=== PATIENT | female | born 1955 | race Caucasian/White ===

== ENCOUNTER 2016-08-20 18:21 | Emergency (ER) | payer MEDICARE, MEDICAID ==
[2016-08-20 18:29] VITALS: BP 149/92
== END 2016-08-20 20:10 | disposition left against medical advice (07) ==
LOC: ED 18:21
DX: M25.551 Pain in right hip (principal); Z53.21 Procedure and treatment not carried out due to patient leaving prior to being seen by health care provider

== ENCOUNTER 2017-09-21 11:08 | Emergency (ER) | payer MEDICARE, MEDICAID ==
[2017-09-21 11:56] VITALS: BP 136/63
--- NOTE | 2017-09-21 12:01 | UC ---
Dental HPI - HPI Summary HPI Summary: Pt presents with front upper tooth fracture sustained last night while eating. This has been rubbing against her tongue and causing her pain. She could not get in to see her dentist until next week. - History of Current Complaint Chief Complaint: UCDentalProblem Stated Complaint: DENTAL COMPLAINT Time Seen by Provider: 09/21/17 11:56 Hx Obtained From: Patient, Family/Soa Engineer Onset/Duration: Sudden Onset Severity: Mild Pain Intensity: 3 Pain Scale Used: 0-10 Numeric - Allergies/Home Medications Allergies/Adverse Reactions: Allergies Allergy/AdvReac Type Severity Reaction Status Date / Time No Known Allergies Allergy Verified 09/21/17 11:44 PMH/Surg Hx/FS Hx/Imm Hx Previously Healthy: Yes Endocrine History: Dyslipidemia Respiratory History: COPD, Asthma Psychological History: Anxiety, Depression, Bipolar Disorder - Surgical History Surgical History: None - Family History Known Family History: Positive: Unknown - Social History Occupation: Disabled Lives: With Family Alcohol Use: None Substance Use Type: None Substance Use Comment - Amount & Last Used: PAIN MEDICATION Smoking Status (MU): Never Smoked Tobacco Household Exposure Type: Cigarettes Review of Systems Constitutional: Negative Skin: Negative ENT: Dental Pain Respiratory: Negative Cardiovascular: Negative Neurological: Negative Psychological: Negative All Other Systems Reviewed And Are Negative: Yes Physical Exam Triage Information Reviewed: Yes Appearance: Well-Appearing, No Pain Distress, Well-Nourished Vital Signs: Initial Vital Signs Temp 97.4 F 09/21/17 11:48 Pulse 87 09/21/17 11:48 Resp 16 09/21/17 11:48 BP 136/63 09/21/17 11:48 Pulse Ox 96 09/21/17 11:48 Vital Signs Reviewed: Yes ENT: Positive: Hearing grossly normal, Pharynx normal, Dental tenderness, Uvula midline. Negative: Pharyngeal erythema Dental: Positive: Percussion Tenderness @ - Tooth 9, Gross Decay/Caries @, Dental Fracture @ - Tooth 9. Posterior inferior portion - mild avulsion of tooth., Other: - Tooth is not loose or freely moveable. Negative: Abscess @, Cellulitis @, Cervical Lymphadenopathy, Bleeding Neck: Positive: Supple, Nontender, No Lymphadenopathy Respiratory: Positive: Lungs clear, Normal breath sounds, No respiratory distress Cardiovascular: Positive: RRR, No Murmur, Pulses Normal Neurological: Positive: Alert Psychological: Positive: Age Appropriate Behavior Skin: Negative: rashes Dental Complaint Course/Dx - Course Course Of Treatment: Tooth #9 with small fracture. Given her tongue pain, will provide her with magic mouthwash for pain relief and have her keep her f/u appt with her dentist. - Differential Dx/Diagnosis Provider Diagnoses: Dental fracture tooth 9 Discharge - Sign-Out/Discharge Documenting (check all that apply): Discharge - Discharge Plan Condition: Stable Disposition: HOME Prescriptions: Magic Mouth Was-ZIYAD/MAAL/LIDO* 5 ml SWISH SPIT QID PRN #100 ml PRN Reason: Pain Patient Education Materials: Toothache (ED) Referrals: Henrry Arriola MD [Primary Care Provider] - Additional Instructions: If you develop a fever, shortness of breath, chest pain, new or worsening symptoms - please call your PCP or go to the ED. Your blood pressure was high at todays visit. Please see your primary provider within 4 weeks for recheck and re-evaluation. 1) Please keep your appointment with your dentist for further evaluation of your tooth. - Billing Disposition and Condition Condition: STABLE Disposition: HOME
== END 2017-09-21 12:23 | disposition home or self-care (01) ==
LOC: UCEAST 11:08
DX: S02.5XXA Fracture of tooth (traumatic), initial encounter for closed fracture (principal); X58.XXXA Exposure to other specified factors, initial encounter; Y92.9 Unspecified place or not applicable
CPT/HCPCS: 99212; G0463

== ENCOUNTER 2019-09-01 11:30 | Emergency (ER) | payer MEDICARE, MEDICAID ==
--- OUTSIDE RECORDS SUMMARY | 2019-09-01 15:42 | XMS REPORT ---
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-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, disorder, [id number] recurrent, recurrent, unspecified unspecified Migraine Migraine Diagnosis Active 2014-07 Ayesha with aura, with aura, 0-01 Edward not not [id number] intractable intractable , w/o , w/o status status migrainosus migrainosus Other long Other long Diagnosis Active 2014-07 Ayesha term term 0-01 Edward (current) (current) [id number] drug drug therapy therapy Sciatica, Sciatica, Diagnosis Active 2014-07 Ayesha unspecified unspecified 0-01 Edward side side [id number] Other long Other long Diagnosis Active Ayesha term term Edward (current) (current) [id number] drug drug therapy therapy Other symp Other symp Diagnosis Active Ayesha and signs w and signs w Edward cogn fnctns cogn fnctns [id number] fol unsp fol unsp cerebvasc cerebvasc dis dis Pain frequent Pain Mgmt Resolve 2018-09-10 Brittani pain d 08-06 09:20:00 Roney 08:40: [id number] 00 Pain knowledge/s Pain Mgmt Resolve 2015-11-23 Brittani kill d 08-06 11:52:00 Roney deficit: pt 08:40: [id number] 00 Sensory impaired Sensory Resolve 2015-12-06 Brittani hearing d 2- 08:44:00 Roney 08:40: [id number] 00 Nutrition knowledge/s Nutrition Resolve 2015-11-23 Brittani kill d 2- 11:52:00 Sim deficit: pt 08:40: [id number] 00 Safety fall risk Safety Resolve 2015-08-06 Brittani factor d 2- 08:40:00 Sim present 08:40: [id number] 00 Safety risk for Safety Resolve 2015-10-05 Brittani hospitaliza d 2- 13:00:00 Sim tion 08:40: [id number] 00 Safety safety Safety Resolve 2015-08-06 Brittani hazards d 08-06 08:40:00 Sim present 08:40: [id number] 00 Medication injectable Meds Resolve 2016-11-28 Brittani med d 2 09:00:00 Sim assistance 08:40: [id number] required 00 Medication knowledge/s Meds Resolve 2015-10-05 Brittani kill d 2- 13:00:00 Sim deficit: pt 08:40: [id number] 00 Medication oral med Meds Resolve 2015-10-05 Brittani assistance d 2 13:00:00 Sim required 08:40: [id number] 00 Diagnoses knowledge/s Diagnoses Resolve 2016-12-26 Brittani kill d 2 09:15:00 Sim deficit: pt 08:40: [id number] 00 Integument other wound Integument Resolve 2015-10-05 Jacquelin present d 3- 13:00:00 Adelso 10:30: [id number] 00 Respiratory lung sounds Respirator Resolve 2015-10-05 Brittani deficit y d - 13:00:00 Sim 13:00: [id number] 00 Neuro anxiety Neuro/Emot Resolve 2015-12-06 Brittani present ion d 10-04 08:44:00 Roney 13:00: [id number] 00 Safety fall risk Safety Resolve 2016-04-04 Brittani factor d - 10:04:00 Sim present 13:00: [id number] 00 Elimination urinary Eliminatio Resolve 2015-11-23 Jacquelin frequency n d 10-11 11:52:00 Adelso 11:00: [id number] 00 Safety risk for Safety Resolve 2016-04-04 Brittani sidhuiza d 11-01 10:04:00 Roney tion 17:19: [id number] 00 Respiratory lung sounds Respirator Resolve 2015-12-06 Emmie deficit y d 11-22 08:44:00 Jerram ICE RINK ATTENDANT 11:52: [id number] 00 Respiratory dyspnea Respirator Resolve 2016-09-26 Emmie present y d 11-22 09:00:00 Jerram [employer] R[employer] ATTENDANT 11:52: [id number] 00 Nutrition knowledge/s Nutrition Resolve 2015-12-06 Emmie kill d 11-29 08:44:00 Jerram [employer] ATTENDANT deficit: pt 10:06: [id number] 00 Integument other wound Integument Resolve 2015-12-06 Brittani present d 12-05 08:44:00 Roney 08:44: [id number] 00 Medication knowledge/s Meds Resolve 2015-12-06 Brittani kill d 12-05 08:44:00 Roney deficit: pt 08:44: [id number] 00 Respiratory lung sounds Respirator Active Emmie deficit y 12-06 Jerram ICE RINK ATTENDANT 09:00: [id number] Test/Treatm tests Test/Injec Resolve 2016-07-25 Emmie ent ordered t/Willy d 12-21 12:00:00 Jerram ICE RINK ATTENDANT [id number] Medication oral med Meds Unknown Emmie assistance 01-10 Jerram ICE RINK ATTENDANT required 09:00: [id number] Integument other wound Integument Resolve 2016-02-01 Brittani present d 01-31 10:10:00 Roney 10:10: [id number] 00 Elimination urinary Eliminatio Resolve 2016-02-01 Brittani incontinenc n d 01-31 10:10:00 Roney deluca 10:10: [id number] 00 Elimination urinary Eliminatio Resolve 2016-04-04 Emmie frequency n d 02-07 10:04:00 Jerram ICE RINK ATTENDANT 09:15: [id number] 00 Elimination urinary Eliminatio Resolve 2016-04-04 Brittani incontinenc n d 03-28 10:04:00 Roney e 09:30: [id number] 00 Integument other wound Integument Resolve 2015-072016-04-04 Brittani present d 0 10:04:00 Roney 10:04: [id number] 00 Integument other wound Integument Resolve 2015-072016-06-01 Brittani present d 08-02 09:58:00 Roney 09:58: [id number] 00 Elimination urinary Eliminatio Resolve 2015-072016-07-25 Ayesha incontinenc n d 2 12:00:00 Edward e 09:15: [id number] 00 Elimination diarrhea Eliminatio Resolve 2015-072016-07-25 Ayesha n d 08-28 12:00:00 Edward 09:15: [id number] 00 Elimination nausea/vomi Eliminatio Resolve 2015-072016-07-25 Ayesha ting n d 08-28 12:00:00 Edward 09:15: [id number] 00 Elimination knowledge/s Eliminatio Resolve 2015-072016-07-25 Ayesha kill n d 08-28 12:00:00 Edward deficit: pt 09:15: [id number] 00 Safety safety Safety Resolve 2016-08-01 Ayesha hazards d 07-25 10:00:00 Edward present 12:00: [id number] 00 Safety fall risk Safety Resolve 2016-08-01 Ayesha factor d 07-25 10:00:00 Edward present 12:00: [id number] 00 Safety risk for Safety Resolve 2016-08-01 Ayesha hospitaliza d 07-25 10:00:00 Edward tion 12:00: [id number] 00 Integument other wound Integument Resolve 2016-08-29 Ayesha present d 08-01 08:50:00 Edward 10:00: [id number] 00 Neuro anxiety Neuro/Emot Resolve 2016-08-29 Ayesha present ion d 08-01 08:50:00 Edward 10:00: [id number] 00 Neuro behavior Neuro/Emot Resolve 2016-08-29 Ayesha problems ion d 08-01 08:50:00 Edward 10:00: [id number] 00 Safety risk for Safety Resolve 2016-08-29 Edyta hospitaliza d 08-08 08:50:00 Stanly tion 08:10: [id number] 00 Neuro memory Neuro/Emot Resolve 2016-08-29 Ayesha deficit ion d 08-29 08:50:00 Edward needing 08:50: [id number] supervision 00 Safety safety Safety Resolve 2016-08-29 Ayesha hazards d 08-29 08:50:00 Edward present 08:50: [id number] 00 Safety risk for Safety Resolve 2016-09-29 Edyta hospitaliza d 09-05 09:00:00 Stanly tion 08:30: [id number] 00 Integument other wound Integument Resolve 2016-09-29 Ayesha present d 09-29 09:00:00 Edward 09:00: [id number] 00 Safety safety Safety Resolve 2016-09-29 Ayesha hazards d 09-29 09:00:00 Edward present 09:00: [id number] 00 Safety fall risk Safety Resolve 2016-09-29 Ayesha factor d 09-29 09:00:00 Edward present 09:00: [id number] 00 Medication oral med Meds Unknown Ayesha assistance 09-29 Edward required 09:00: [id number] 00 Neuro anxiety Neuro/Emot Resolve 2016-10-31 Ayesha present ion d 10-02 09:15:00 Edward 09:00: [id number] 00 Neuro impaired Neuro/Emot Resolve 2016-10-31 Ayesha decision-ma ion d 10-02 09:15:00 Edward larry 09:00: [id number] 00 Neuro memory Neuro/Emot Resolve 2016-10-31 Ayesha deficit ion d 10-02 09:15:00 Edward needing 09:00: [id number] supervision 00 Safety risk for Safety Resolve 2016-10-31 Ayesha hospitaliza d 10-02 09:15:00 Edward tion 09:00: [id number] 00 Safety safety Safety Resolve 2016-10-31 Ayesha hazards d 10-31 09:15:00 Edward present 09:15: [id number] 00 Safety risk for Safety Resolve 2017-02-27 Edyta hospitaliza d 11-07 09:20:00 Stanly tion 08:30: [id number] 00 Integument other wound Integument Resolve 2017-01-29 Ayesha present d 11-28 09:00:00 Edward 09:00: [id number] 00 Safety safety Safety Resolve 2017-02-27 Ayesha hazards d 11-28 09:20:00 Edward present 09:00: [id number] 00 Safety fall risk Safety Resolve 2017-02-27 Ayesha factor d 11-28 09:20:00 Edward present 09:00: [id number] 00 Medication oral med Meds Unknown Ayesha assistance 11-28 Edward required 09:00: [id number] 00 Neuro anxiety Neuro/Emot Resolve 2017-01-23 Ayesha present ion d 12-26 11:00:00 Edward 09:15: [id number] 00 Integument other wound Integument Active Ayesha present 03-27 Edward 09:30: [id number] 00 Neuro anxiety Neuro/Emot Resolve 2016-072017-05-29 Ayesha present ion d 07-15 09:45:00 Edward 09:33: [id number] 00 Safety safety Safety Resolve 2016-072017-05-29 Ayesha hazards d 07-15 09:45:00 Edward present 09:33: [id number] 00 Safety fall risk Safety Resolve 2016-072017-05-29 Ayesha factor d 07-15 09:45:00 Edward present 09:33: [id number] 00 Safety risk for Safety Resolve 2016-072017-05-29 Ayesha hospitaliza d 07-15 09:45:00 Edward tion 09:33: [id number] 00 Neuro anxiety Neuro/Emot Resolve 2017-12-18 Ayesha present ion d 11-23 10:10:00 Edward 13:10: [id number] 00 Musculoskel transfer Musculoske Resolve 2017-12-18 Rossi etal assistance letal d 11-23 10:10:00 Guidelli required 13:10: [id number] 00 Elimination diarrhea Eliminatio Resolve 2017-072018-07-23 Glenna n d 2-15 09:15:00 Rose Marie 17:26: [id number] 00 Medication potential Meds Resolve 2017-072018-07-23 Glenna clinically d 2-15 09:15:00 Rose Marie significant 17:26: [id number] medication 00 issue Medication oral med Meds Resolve 2017-072018-07-23 Glenna assistance d 2-15 09:15:00 Rose Marie required 17:26: [id number] 00 Medication injectable Meds Resolve 2017-072019-05-15 Glenna med d 2-15 10:00:00 Rose Marie assistance 17:26: [id number] required 00 Musculoskel transfer Musculoske Resolve 2017-072018-07-23 Glenna etal assistance letal d 2-15 09:15:00 Rose Marie required 17:26: [id number] 00 Musculoskel requires Musculoske Resolve 2017-072018-07-23 Glenna etal human letal d 2-15 09:15:00 Rose Marie assist to 17:26: [id number] leave home 00 Neuro anxiety Neuro/Emot Resolve 2017-072018-07-23 Ayesha present ion d 2-18 09:15:00 Edward 09:15: [id number] 00 Pain knowledge/s Pain Mgmt Resolve 2018-09-10 Edyta poole d 08-27 09:20:00 Stanly deficit: pt 10:37: [id number] 00 Respiratory asthma Respirator Resolve 2018-09-17 Ayesha y d 09-10 09:09:00 Edward 09:20: [id number] 00 Neuro anxiety Neuro/Emot Resolve 2018-09-24 Ayesha present ion d 3- 08:49:00 Edward 09:09: [id number] 00 Medication oral med Meds Resolve 2018-09-24 Danni guzman d 09-18 08:49:00 Vallely required 10:00: 00 Safety safety Safety Resolve 2019-07-08 Ayesha hazards d 10-08 09:05:00 Edward present 08:55: [id number] 00 Safety fall risk Safety Resolve 2019-0 2019-07-15 Ayesha factor d 10-08 08:32:00 Edward present 08:55: [id number] 00 Safety risk for Safety Active 2018- Ayesha sidhuiza 10-08 Edward tion 08:55: [id number] 00 Medication injectable Meds Unknown 2018- Ayesha med 10-08 Edward assistance 08:55: [id number] required 00 Neuro anxiety Neuro/Emot Resolve 2018-2018-12-05 Ayesha roman ion d 11-19 09:00:00 Edward 08:58: [id number] 00 Medication oral med Meds Resolve 2018-12-31 Danni assistance d 12-05 08:35:00 Vallely required 09:00: 00 Cardio hypertensio Cardiovasc Resolve 2018-2019-02-11 Ayesha mane 01-15 11:00:00 Edward 07:30: [id number] 00 Medication oral med Meds Resolve 2019-02-11 Ayesha assistance d 01-15 11:00:00 Edward required 07:30: [id number] 00 Medication injectable Meds Unknown Ayesha med 01-15 Edward assistance 07:30: [id number] required 00 Elimination urinary Eliminatio Resolve 2019-02-24 Glenna incontinenc n d 8-20 14:30:00 Mitchell e 07:35: [employer] 00 [id number] Elimination urinary Eliminatio Resolve 2018-072019-06-10 Glenna incontinenc n d 0-22 09:30:00 Mitchell e 07:32: [employer] 00 [id number] Sensory impaired Sensory Resolve 2018-072019-06-10 Ayesha hearing d 1-14 09:30:00 Edward 10:00: [id number] 00 Medication oral med Meds Resolve 2018-072019-05-15 Ayesha assistance d 14 10:00:00 Edward required 10:00: [id number] 00 Safety safety Safety Resolve 2019-07-15 Ayesha hazards d 07-15 08:32:00 Edward present 08:32: [id number] 00 Allergies, Adverse Reactions, Alerts Allergy Allergy Status Severity Reaction(s) Onset Inactive Treating Comments Name Type Date Date Clinician Unknown None Active Unknown None Unknown No Known Allergies For This Patient Medications Ordered Filled Start Stop Current Ordering Indication Dosage Frequency Signature Comments Components Medication Medication Date Date Medication? Clinician (SIG) Name Name ciclopirox ciclopirox 2016- No Breiman .77% Unknown 0.77 % 0.77 % 07-06 Henrry MATHIAS topical topical cream cream cyclobenzap cyclobenzap 2016- No Breiman 5 MG Unknown rine 5 mg rine 5 mg 09-08 Henrry MATHIAS tablet tablet hydrocortis hydrocortis 2012-07- No Breiman .2% Unknown one one 07-12 Henrry MATHIAS valerate valerate 0.2 % 0.2 % topical topical ointment ointment ibuprofen ibuprofen No Breiman 2 Tab Unknown 200 mg 200 mg 02-10 Henrry MATHIAS tablet tablet LORazepam LORazepam No Breiman 1 tab Unknown 0.5 mg 0.5 mg 03-19 Henrry MATHIAS tablet tablet Miralax 17 Miralax 17 No Breiman 17 GM Unknown gram/dose gram/dose 02-11 Henrry MATHIAS oral powder oral powder mupirocin 2 mupirocin 2 2011-07- No Breiman 2% ext. Unknown % topical % topical 07-21 Henrry MATHIAS Oint. ointment ointment naproxen naproxen 2016- No Breiman 1 tab Unknown 500 mg 500 mg 11-08 Henrry MATHIAS tablet tablet ondansetron ondansetron 2013-07 No Breiman 1 tab Unknown 4 mg 4 mg 08-10 Henrry MATHIAS disintegrat disintegrat ing tablet ing tablet traZODone traZODone No Breiman 1 tab Unknown 50 mg 50 mg 03-19 Henrry MATHIAS tablet tablet Ventolin Ventolin No Breiman 108 Unknown HFA 90 HFA 90 03-12 Henrry MATHIAS MCG/Act mcg/actuati mcg/actuati (2 on aerosol on aerosol puffs) inhaler inhaler Westcort Westcort 2016- No Breiman .2% Unknown 10-28 Henrry MATHIAS Zetia 10 mg Zetia 10 mg 2016- No Breiman 10 MG Unknown tablet tablet 10-28 Henrry MATHIAS Zoloft 50 Zoloft 50 No Breiman 50 MG- Unknown mg tablet mg tablet 09-10 Henrry MATHIAS 1 tab penicillin penicillin 2015- No Breiman 1 Unknown V potassium V potassium 02-14 Henrry MATHIAS 500 mg 500 mg tablet tablet nabumetone nabumetone No [place] 500mg Unknown 500 mg 500 mg 08-01 Bipin MATHIAS tablet tablet HYDROcodone HYDROcodone No [place] 1 tab Unknown 5 5 08-01 Bipin MATHIAS mg-acetamin mg-acetamin ophen 325 ophen 325 mg tablet mg tablet amoxicillin amoxicillin 2016- No Breiman 500mg Unknown 500 mg 500 mg 01-17 ,Henrry capsule capsule ezetimibe ezetimibe No Breiman 10mg Unknown 10 mg 10 mg 01-30 ,Henrry tablet tablet lisinopril lisinopril 2018- No Breiman 5mg Unknown 5 mg tablet 5 mg tablet 09-26 Henrry MATHIAS Nystop Nystop 2017- No Breiman 1 Unknown 100,000 100,000 09-26 Henrry MATHIAS applica unit/gram unit/gram tion topical topical powder powder Nystop Nystop 2017- No Breiman 1 Unknown 100,000 100,000 09-26 Henrry MATHIAS applica unit/gram unit/gram tion topical topical powder powder nystatin nystatin No Breiman 1 Unknown 100,000 100,000 10-09 Henrry MATHIAS applica unit/gram unit/gram tion topical topical cream cream lisinopril lisinopril No Breiman Unknown Unknown 10 mg 10 mg 09-17 ,Henrry tablet tablet Vital Signs Vital Name Observation Time Observation Value Comments SYSTOLIC mm[Hg] 2019-08-26 18:10:34 132 mm[Hg] mm[Hg] Method: Sit SYSTOLIC mm[Hg] 2019-07-15 18:09:52 156 mm[Hg] mm[Hg] Method: Stand DIASTOLIC mm[Hg] 2019-08-26 18:10:34 68 mm[Hg] mm[Hg] Method: Sit DIASTOLIC mm[Hg] 2019-07-15 18:09:52 84 mm[Hg] mm[Hg] Method: Stand PULSE 2019-08-26 18:10:34 66 /min /min RESP RATE 2019-08-26 18:10:34 16 /min /min TEMP 2019-08-26 18:10:34 97.7 [degF] Procedures This patient has no known procedures. Results This patient has no known results.
--- OUTSIDE RECORDS SUMMARY | 2019-09-01 15:42 | XMS REPORT ---
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, disorder, 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, recurrent, unspecified unspecified Migraine Migraine Diagnosis Active 2014-07 Ayesha with aura, with aura, 0-01 Edward not not [id number] intractable intractable , w/o , w/o status status migrainosus migrainosus Other long Other long Diagnosis Active 2014-07 Ayesha term term 0-01 Edward (current) (current) [id number] drug drug therapy therapy Sciatica, Sciatica, Diagnosis Active 2014-07 Ayesha unspecified unspecified 0-01 Edward side side [id number] Other long Other long Diagnosis Active Ayesha term term Edward (current) (current) [id number] drug drug therapy therapy Other symp Other symp Diagnosis Active Ayesha and signs w and signs w Edward cogn fnctns cogn fnctns [id number] fol unsp fol unsp cerebvasc cerebvasc dis dis Pain frequent Pain Mgmt Resolve 2018-09-10 Brittani pain d 08-06 09:20:00 Roney 08:40: [id number] 00 Pain knowledge/s Pain Mgmt Resolve 2015-11-23 Brittani kill d 08-06 11:52:00 Roney deficit: pt 08:40: [id number] 00 Sensory impaired Sensory Resolve 2015-12-06 Brittani hearing d 2- 08:44:00 Roney 08:40: [id number] 00 Nutrition knowledge/s Nutrition Resolve 2015-11-23 Brittani kill d 2- 11:52:00 Sim deficit: pt 08:40: [id number] 00 Safety fall risk Safety Resolve 2015-08-06 Brittani factor d 2- 08:40:00 Sim present 08:40: [id number] 00 Safety risk for Safety Resolve 2015-10-05 Brittani hospitaliza d 2- 13:00:00 Sim tion 08:40: [id number] 00 Safety safety Safety Resolve 2015-08-06 Brittani hazards d 08-06 08:40:00 Sim present 08:40: [id number] 00 Medication injectable Meds Resolve 2016-11-28 Brittani med d 2 09:00:00 Sim assistance 08:40: [id number] required 00 Medication knowledge/s Meds Resolve 2015-10-05 Brittani kill d 2- 13:00:00 Sim deficit: pt 08:40: [id number] 00 Medication oral med Meds Resolve 2015-10-05 Brittani assistance d 2 13:00:00 Sim required 08:40: [id number] 00 Diagnoses knowledge/s Diagnoses Resolve 2016-12-26 Brittani kill d 2 09:15:00 Sim deficit: pt 08:40: [id number] 00 Integument other wound Integument Resolve 2015-10-05 Jacquelin present d 3- 13:00:00 Adelso 10:30: [id number] 00 Respiratory lung sounds Respirator Resolve 2015-10-05 Brittani deficit y d - 13:00:00 Sim 13:00: [id number] 00 Neuro anxiety Neuro/Emot Resolve 2015-12-06 Brittani present ion d 10-04 08:44:00 Roney 13:00: [id number] 00 Safety fall risk Safety Resolve 2016-04-04 Brittani factor d - 10:04:00 Sim present 13:00: [id number] 00 Elimination urinary Eliminatio Resolve 2015-11-23 Jacquelin frequency n d 10-11 11:52:00 Adelso 11:00: [id number] 00 Safety risk for Safety Resolve 2016-04-04 Brittani sidhuiza d 11-01 10:04:00 Roney tion 17:19: [id number] 00 Respiratory lung sounds Respirator Resolve 2015-12-06 Emmie deficit y d 11-22 08:44:00 Jerram [employer] 11:52: [id number] 00 Respiratory dyspnea Respirator Resolve 2016-09-26 Emmie present y d 11-22 09:00:00 Jerram [employer] 11:52: [id number] 00 Nutrition knowledge/s Nutrition Resolve 2015-12-06 Emmie kill d 11-29 08:44:00 Jerram [employer] deficit: pt 10:06: [id number] 00 Integument other wound Integument Resolve 2015-12-06 Brittani present d 12-05 08:44:00 Roney 08:44: [id number] 00 Medication knowledge/s Meds Resolve 2015-12-06 Brittani kill d 12-05 08:44:00 Roney deficit: pt 08:44: [id number] 00 Respiratory lung sounds Respirator Active Emmie deficit y 12-06 Jerram [employer] 09:00: [id number] Test/Treatm tests Test/Injec Resolve 2016-07-25 Emmie ent ordered t/Willy d 12-21 12:00:00 Jerram [employer] [id number] Medication oral med Meds Unknown Emmie assistance 01-10 Jerram [employer] required 09:00: [id number] Integument other wound Integument Resolve 2016-02-01 Brittani present d 01-31 10:10:00 Roney 10:10: [id number] 00 Elimination urinary Eliminatio Resolve 2016-02-01 Brittani incontinenc n d 01-31 10:10:00 Roney deluca 10:10: [id number] 00 Elimination urinary Eliminatio Resolve 2016-04-04 Emmie frequency n d 02-07 10:04:00 Jerram [employer] 09:15: [id number] 00 Elimination urinary Eliminatio Resolve 2016-04-04 Brittani incontinenc n d 03-28 10:04:00 Roney e 09:30: [id number] 00 Integument other wound Integument Resolve 2015-072016-04-04 Brittani present d 0 10:04:00 Roney 10:04: [id number] 00 Integument other wound Integument Resolve 2015-072016-06-01 Brittani present d 08-02 09:58:00 Roney 09:58: [id number] 00 Elimination urinary Eliminatio Resolve 2015-072016-07-25 Ayesha incontinenc n d 2 12:00:00 Edward e 09:15: [id number] 00 Elimination diarrhea Eliminatio Resolve 2015-072016-07-25 Ayesha n d 08-28 12:00:00 Edward 09:15: [id number] 00 Elimination nausea/vomi Eliminatio Resolve 2015-072016-07-25 Ayesha ting n d 08-28 12:00:00 Edward 09:15: [id number] 00 Elimination knowledge/s Eliminatio Resolve 2015-072016-07-25 Ayesha kill n d 08-28 12:00:00 Edward deficit: pt 09:15: [id number] 00 Safety safety Safety Resolve 2016-08-01 Ayesha hazards d 07-25 10:00:00 Edward present 12:00: [id number] 00 Safety fall risk Safety Resolve 2016-08-01 Ayesha factor d 07-25 10:00:00 Edward present 12:00: [id number] 00 Safety risk for Safety Resolve 2016-08-01 Ayesha hospitaliza d 07-25 10:00:00 Edward tion 12:00: [id number] 00 Integument other wound Integument Resolve 2016-08-29 Ayesha present d 08-01 08:50:00 Edward 10:00: [id number] 00 Neuro anxiety Neuro/Emot Resolve 2016-08-29 Ayesha present ion d 08-01 08:50:00 Edward 10:00: [id number] 00 Neuro behavior Neuro/Emot Resolve 2016-08-29 Ayesha problems ion d 08-01 08:50:00 Edward 10:00: [id number] 00 Safety risk for Safety Resolve 2016-08-29 Edyta hospitaliza d 08-08 08:50:00 [place] tion 08:10: [id number] 00 Neuro memory Neuro/Emot Resolve 2016-08-29 Ayesha deficit ion d 08-29 08:50:00 Edward needing 08:50: [id number] supervision 00 Safety safety Safety Resolve 2016-08-29 Ayesha hazards d 08-29 08:50:00 Edward present 08:50: [id number] 00 Safety risk for Safety Resolve 2016-09-29 Edyta hospitaliza d 09-05 09:00:00 [place] tion 08:30: [id number] 00 Integument other wound Integument Resolve 2016-09-29 Ayesha present d 09-29 09:00:00 Edward 09:00: [id number] 00 Safety safety Safety Resolve 2016-09-29 Ayesha hazards d 09-29 09:00:00 Edawrd present 09:00: [id number] 00 Safety fall risk Safety Resolve 2016-09-29 Ayesha factor d 09-29 09:00:00 Edward present 09:00: [id number] 00 Medication oral med Meds Unknown Ayesha assistance 09-29 Edward required 09:00: [id number] 00 Neuro anxiety Neuro/Emot Resolve 2016-10-31 Ayesha present ion d 10-02 09:15:00 Edward 09:00: [id number] 00 Neuro impaired Neuro/Emot Resolve 2016-10-31 Ayesha decision-ma ion d 10-02 09:15:00 Edward larry 09:00: [id number] 00 Neuro memory Neuro/Emot Resolve 2016-10-31 Ayesha deficit ion d 10-02 09:15:00 Edward needing 09:00: [id number] supervision 00 Safety risk for Safety Resolve 2016-10-31 Ayesha hospitaliza d 10-02 09:15:00 Edward tion 09:00: [id number] 00 Safety safety Safety Resolve 2016-10-31 Ayesha hazards d 10-31 09:15:00 Edward present 09:15: [id number] 00 Safety risk for Safety Resolve 2017-02-27 Edyta hospitaliza d 11-07 09:20:00 [place] tion 08:30: [id number] 00 Integument other wound Integument Resolve 2017-01-29 Ayesha present d 11-28 09:00:00 Edward 09:00: [id number] 00 Safety safety Safety Resolve 2017-02-27 Ayesha hazards d 11-28 09:20:00 Edward present 09:00: [id number] 00 Safety fall risk Safety Resolve 2017-02-27 Ayesha factor d 11-28 09:20:00 Edward present 09:00: [id number] 00 Medication oral med Meds Unknown Ayesha assistance 11-28 Edward required 09:00: [id number] 00 Neuro anxiety Neuro/Emot Resolve 2017-01-23 Ayesha present ion d 12-26 11:00:00 Edward 09:15: [id number] 00 Integument other wound Integument Active Ayesha present 03-27 Edward 09:30: [id number] 00 Neuro anxiety Neuro/Emot Resolve 2016-072017-05-29 Ayesha present ion d 07-15 09:45:00 Edward 09:33: [id number] 00 Safety safety Safety Resolve 2016-072017-05-29 Ayesha hazards d 07-15 09:45:00 Edward present 09:33: [id number] 00 Safety fall risk Safety Resolve 2016-072017-05-29 Ayesha factor d 07-15 09:45:00 Edward present 09:33: [id number] 00 Safety risk for Safety Resolve 2016-072017-05-29 Ayesha hospitaliza d 07-15 09:45:00 Edward tion 09:33: [id number] 00 Neuro anxiety Neuro/Emot Resolve 2017-12-18 Ayesha present ion d 11-23 10:10:00 Edward 13:10: [id number] 00 Musculoskel transfer Musculoske Resolve 2017-12-18 Rossi etal assistance letal d 11-23 10:10:00 Guidelli required 13:10: [id number] 00 Elimination diarrhea Eliminatio Resolve 2017-072018-07-23 Glenna n d 2-15 09:15:00 Rose Marie 17:26: [id number] 00 Medication potential Meds Resolve 2017-072018-07-23 Glenna clinically d 2-15 09:15:00 Rose Marie significant 17:26: [id number] medication 00 issue Medication oral med Meds Resolve 2017-072018-07-23 Glenna assistance d 2-15 09:15:00 Rose Marie required 17:26: [id number] 00 Medication injectable Meds Active 2017-07 Glenna med 2- Rose Marie assistance 17:26: [id number] required 00 Musculoskel transfer Musculoske Resolve 2017-072018-07-23 Glenna etal assistance letal d 2- 09:15:00 Rose Marie required 17:26: [id number] 00 Musculoskel requires Musculoske Resolve 2017-072018-07-23 Glenna etal human letal d 2- 09:15:00 Rose Marie assist to 17:26: [id number] leave home 00 Neuro anxiety Neuro/Emot Resolve 2017-072018-07-23 Ayesha present ion d 2-18 09:15:00 Edward 09:15: [id number] 00 Pain knowledge/s Pain Mgmt Resolve 2018-09-10 Edyta poole d 08-27 09:20:00 [place] deficit: pt 10:37: [id number] 00 Respiratory asthma Respirator Resolve 2018-09-17 Ayesha y d 3 09:09:00 Edward 09:20: [id number] 00 Neuro anxiety Neuro/Emot Resolve 2018-09-24 Ayesha present ion d 3 08:49:00 Edward 09:09: [id number] 00 Medication oral med Meds Resolve 2018-09-24 Danni assistance d 09-18 08:49:00 Vallely required 10:00: 00 Safety safety Safety Resolve 2019-07-08 Ayesha hazards d 10-08 09:05:00 Edward present 08:55: [id number] 00 Safety fall risk Safety Resolve 2019-07-15 Ayesha factor d 10-08 08:32:00 Edward present 08:55: [id number] 00 Safety risk for Safety Active Ayesha hospitaliza 10-08 Edward tion 08:55: [id number] 00 Medication injectable Meds Unknown Ayesha med 10-08 Edward assistance 08:55: [id number] required 00 Neuro anxiety Neuro/Emot Resolve 2018-2018-12-05 Ayesha abel ion d 11-19 09:00:00 Edward 08:58: [id number] 00 Medication oral med Meds Resolve 2018-12-31 Danni assistance d 12-05 08:35:00 Vallely required 09:00: 00 Cardio hypertensio Cardiovasc Resolve 2018-2019-02-11 Ayesha alejandrina abbottar d 01-15 11:00:00 Edward 07:30: [id number] 00 Medication oral med Meds Resolve 2019-02-11 Ayesha assistance d 01-15 11:00:00 Edward required 07:30: [id number] 00 Medication injectable Meds Unknown Ayesha med 01-15 Edward assistance 07:30: [id number] required 00 Elimination urinary Eliminatio Resolve 2019-02-24 Glenna incontinenc n d 8-20 14:30:00 Mitchell e 07:35: [employer] 00 [id number] Elimination urinary Eliminatio Resolve 2018-072019-06-10 Glenna incontinenc n d 0-22 09:30:00 Mitchell e 07:32: [employer] 00 [id number] Sensory impaired Sensory Resolve 2018-072019-06-10 Ayesha hearing d 1-14 09:30:00 Edward 10:00: [id number] 00 Medication oral med Meds Resolve 2018-072019-05-15 Ayesha assistance d 07-15 10:00:00 Edward required 10:00: [id number] 00 Safety safety Safety Resolve 2019-07-15 Ayesha hazards d 07-15 08:32:00 Edward present 08:32: [id number] 00 Allergies, Adverse Reactions, Alerts Allergy Allergy [...] 50 MG- Unknown mg tablet mg tablet 3-12 Henrry MATHIAS 1 tab penicillin penicillin 2015- No Breiman 1 Unknown V potassium V potassium 02-14 ,Henrry 500 mg 500 mg tablet tablet nabumetone [...] Observation Time Observation Value Comments SYSTOLIC mm[Hg] 2019-08-19 18:10:27 128 mm[Hg] mm[Hg] Method: Sit SYSTOLIC mm[Hg] 2019-07-15 18:09:52 156 mm[Hg] mm[Hg] Method: Stand DIASTOLIC mm[Hg] 2019-08-19 18:10:27 64 mm[Hg] mm[Hg] Method: Sit DIASTOLIC mm[Hg] 2019-07-15 18:09:52 84 mm[Hg] mm[Hg] Method: Stand PULSE 2019-08-19 18:10:27 70 /min /min RESP RATE 2019-08-19 18:10:27 16 /min /min TEMP 2019-08-19 18:10:27 97.9 [degF] Procedures This patient has no known procedures. Results This patient has no known results.
--- OUTSIDE RECORDS SUMMARY | 2019-09-01 15:43 | XMS REPORT ---
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, disorder, 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, recurrent, unspecified unspecified Migraine Migraine Diagnosis Active 2014-07 Ayesha with aura, with aura, 0-01 Edward not not [id number] intractable intractable , w/o , w/o status status migrainosus migrainosus Other long Other long Diagnosis Active 2014-07 Ayesha term term 0-01 Edward (current) (current) [id number] drug drug therapy therapy Sciatica, Sciatica, Diagnosis Active 2014-07 Ayesha unspecified unspecified 0-01 Edward side side [id number] Other long Other long Diagnosis Active Ayesha term term Ewdard (current) (current) [id number] drug drug therapy therapy Other symp Other symp Diagnosis Active Ayesha and signs w and signs w Edward cogn fnctns cogn fnctns [id number] fol unsp fol unsp cerebvasc cerebvasc dis dis Pain frequent Pain Mgmt Resolve 2018-09-10 Brittani pain d 08-06 09:20:00 Roney 08:40: [id number] 00 Pain knowledge/s Pain Mgmt Resolve 2015-11-23 Brittani kill d 08-06 11:52:00 Roney deficit: pt 08:40: [id number] 00 Sensory impaired Sensory Resolve 2015-12-06 Brittani hearing d 2- 08:44:00 Roney 08:40: [id number] 00 Nutrition knowledge/s Nutrition Resolve 2015-11-23 Brittani kill d 2- 11:52:00 Sim deficit: pt 08:40: [id number] 00 Safety fall risk Safety Resolve 2015-08-06 Brittani factor d 2- 08:40:00 Sim present 08:40: [id number] 00 Safety risk for Safety Resolve 2015-10-05 Brittani hospitaliza d 2- 13:00:00 Sim tion 08:40: [id number] 00 Safety safety Safety Resolve 2015-08-06 Brittani hazards d 08-06 08:40:00 Sim present 08:40: [id number] 00 Medication injectable Meds Resolve 2016-11-28 Brittani med d 2 09:00:00 Sim assistance 08:40: [id number] required 00 Medication knowledge/s Meds Resolve 2015-10-05 Brittani kill d 2- 13:00:00 Sim deficit: pt 08:40: [id number] 00 Medication oral med Meds Resolve 2015-10-05 Brittani assistance d 2 13:00:00 Sim required 08:40: [id number] 00 Diagnoses knowledge/s Diagnoses Resolve 2016-12-26 Brittani kill d 2 09:15:00 Sim deficit: pt 08:40: [id number] 00 Integument other wound Integument Resolve 2015-10-05 Jacquelin present d 3- 13:00:00 Adelso 10:30: [id number] 00 Respiratory lung sounds Respirator Resolve 2015-10-05 Brittani deficit y d - 13:00:00 Sim 13:00: [id number] 00 Neuro anxiety Neuro/Emot Resolve 2015-12-06 Brittani present ion d 10-04 08:44:00 Roney 13:00: [id number] 00 Safety fall risk Safety Resolve 2016-04-04 Brittani factor d - 10:04:00 Sim present 13:00: [id number] 00 Elimination urinary Eliminatio Resolve 2015-11-23 Jacquelin frequency n d 10-11 11:52:00 Adelso 11:00: [id number] 00 Safety risk for Safety Resolve 2016-04-04 Brittani sidhuiza d 11-01 10:04:00 Roney tion 17:19: [id number] 00 Respiratory lung sounds Respirator Resolve 2015-12-06 Emmie deficit y d 11-22 08:44:00 Jerram [employer] 11:52: [id number] 00 Respiratory dyspnea Respirator Resolve 2016-09-26 Emmie present y d 11-22 09:00:00 Jerram [employer] 11:52: [id number] 00 Nutrition knowledge/s Nutrition Resolve 2015-12-06 Emmie kill d 11-29 08:44:00 Jerram [employer] deficit: pt 10:06: [id number] 00 Integument other wound Integument Resolve 2015-12-06 Brittani present d 12-05 08:44:00 Roney 08:44: [id number] 00 Medication knowledge/s Meds Resolve 2015-12-06 Brittani kill d 12-05 08:44:00 Roney deficit: pt 08:44: [id number] 00 Respiratory lung sounds Respirator Active Emmie deficit y 12-06 Jerram [employer] 09:00: [id number] Test/Treatm tests Test/Injec Resolve 2016-07-25 Emmie ent ordered t/Willy d 12-21 12:00:00 Jerram [employer] [id number] Medication oral med Meds Unknown Emmie assistance 01-10 Jerram [employer] required 09:00: [id number] 00 Integument other wound Integument Resolve 2016-02-01 Brittani present d 01-31 10:10:00 Roney 10:10: [id number] 00 Elimination urinary Eliminatio Resolve 2016-02-01 Brittani incontinenc n d 01-31 10:10:00 Roney deluca 10:10: [id number] 00 Elimination urinary Eliminatio Resolve 2016-04-04 Emmie frequency n d 02-07 10:04:00 Jerram [employer] 09:15: [id number] 00 Elimination urinary Eliminatio Resolve 2016-04-04 Brittani incontinenc n d 03-28 10:04:00 Roney e 09:30: [id number] 00 Integument other wound Integument Resolve 2015-072016-04-04 Brittani present d 0 10:04:00 Roney 10:04: [id number] 00 Integument other wound Integument Resolve 2015-072016-06-01 Brittani present d 08-02 09:58:00 Roney 09:58: [id number] 00 Elimination urinary Eliminatio Resolve 2015-072016-07-25 Ayesha incontinenc n d 2 12:00:00 Edward e 09:15: [id number] 00 Elimination diarrhea Eliminatio Resolve 2015-072016-07-25 Ayesha n d 08-28 12:00:00 Edward 09:15: [id number] 00 Elimination nausea/vomi Eliminatio Resolve 2015-072016-07-25 Ayesha ting n d 08-28 12:00:00 Edward 09:15: [id number] 00 Elimination knowledge/s Eliminatio Resolve 2015-072016-07-25 Ayesha kill n d 08-28 12:00:00 Edward deficit: pt 09:15: [id number] 00 Safety safety Safety Resolve 2016-08-01 Ayesha hazards d 07-25 10:00:00 Edward present 12:00: [id number] 00 Safety fall risk Safety Resolve 2016-08-01 Ayesha factor d 07-25 10:00:00 Edward present 12:00: [id number] 00 Safety risk for Safety Resolve 2016-08-01 Ayesha hospitaliza d 07-25 10:00:00 Edward tion 12:00: [id number] 00 Integument other wound Integument Resolve 2016-08-29 Ayesha present d 08-01 08:50:00 Edward 10:00: [id number] 00 Neuro anxiety Neuro/Emot Resolve 2016-08-29 Ayesha present ion d 08-01 08:50:00 Edward 10:00: [id number] 00 Neuro behavior Neuro/Emot Resolve 2016-08-29 Ayesha problems ion d 08-01 08:50:00 Edward 10:00: [id number] 00 Safety risk for Safety Resolve 2016-08-29 Edyta hospitaliza d 08-08 08:50:00 [place] tion 08:10: [id number] 00 Neuro memory Neuro/Emot Resolve 2016-08-29 Ayesha deficit ion d 08-29 08:50:00 Edward needing 08:50: [id number] supervision 00 Safety safety Safety Resolve 2016-08-29 Ayesha hazards d 08-29 08:50:00 Edward present 08:50: [id number] 00 Safety risk for Safety Resolve 2016-09-29 Edyta hospitaliza d 09-05 09:00:00 [place] tion 08:30: [id number] 00 Integument other wound Integument Resolve 2016-09-29 Ayesha present d 09-29 09:00:00 Edward 09:00: [id number] 00 Safety safety Safety Resolve 2016-09-29 Ayesha hazards d 09-29 09:00:00 Edward present 09:00: [id number] 00 Safety fall risk Safety Resolve 2016-09-29 Ayesha factor d 09-29 09:00:00 Edward present 09:00: [id number] 00 Medication oral med Meds Unknown Ayesha assistance 09-29 Edward required 09:00: [id number] 00 Neuro anxiety Neuro/Emot Resolve 2016-10-31 Ayesha present ion d 10-02 09:15:00 Edward 09:00: [id number] 00 Neuro impaired Neuro/Emot Resolve 2016-10-31 Ayesha decision-ma ion d 10-02 09:15:00 Edward larry 09:00: [id number] 00 Neuro memory Neuro/Emot Resolve 2016-10-31 Ayesha deficit ion d 10-02 09:15:00 Edward needing 09:00: [id number] supervision 00 Safety risk for Safety Resolve 2016-10-31 Ayesha hospitaliza d 10-02 09:15:00 Edward tion 09:00: [id number] 00 Safety safety Safety Resolve 2016-10-31 Ayesha hazards d 10-31 09:15:00 Edward present 09:15: [id number] 00 Safety risk for Safety Resolve 2017-02-27 Edyta hospitaliza d 11-07 09:20:00 [place] tion 08:30: [id number] 00 Integument other wound Integument Resolve 2017-01-29 Ayesha present d 11-28 09:00:00 Edward 09:00: [id number] 00 Safety safety Safety Resolve 2017-02-27 Ayesha hazards d 11-28 09:20:00 Edward present 09:00: [id number] 00 Safety fall risk Safety Resolve 2017-02-27 Ayesha factor d 11-28 09:20:00 Edward present 09:00: [id number] 00 Medication oral med Meds Unknown Ayesha assistance 11-28 Edward required 09:00: [id number] 00 Neuro anxiety Neuro/Emot Resolve 2017-01-23 Ayesha present ion d 12-26 11:00:00 Edward 09:15: [id number] 00 Integument other wound Integument Active Ayesha present 03-27 Edward 09:30: [id number] 00 Neuro anxiety Neuro/Emot Resolve 2016-072017-05-29 Ayesha present ion d 07-15 09:45:00 Edward 09:33: [id number] 00 Safety safety Safety Resolve 2016-072017-05-29 Ayesha hazards d 07-15 09:45:00 Edward present 09:33: [id number] 00 Safety fall risk Safety Resolve 2016-072017-05-29 Ayesha factor d 07-15 09:45:00 Edward present 09:33: [id number] 00 Safety risk for Safety Resolve 2016-072017-05-29 Ayesha hospitaliza d 07-15 09:45:00 Edward tion 09:33: [id number] 00 Neuro anxiety Neuro/Emot Resolve 2017-12-18 Ayesha present ion d 11-23 10:10:00 Edward 13:10: [id number] 00 Musculoskel transfer Musculoske Resolve 2017-12-18 Rossi etal assistance letal d 11-23 10:10:00 Guidelli required 13:10: [id number] 00 Elimination diarrhea Eliminatio Resolve 2017-072018-07-23 Glenna n d 2-15 09:15:00 Rose Marie 17:26: [id number] 00 Medication potential Meds Resolve 2017-072018-07-23 Glenna clinically d 2-15 09:15:00 Rose Marie significant 17:26: [id number] medication 00 issue Medication oral med Meds Resolve 2017-072018-07-23 Glenna assistance d 2-15 09:15:00 Rose Marie required 17:26: [id number] 00 Medication injectable Meds Resolve 2017-072019-05-15 Glenna med d 2-15 10:00:00 Rose Marie assistance 17:26: [id number] required 00 Musculoskel transfer Musculoske Resolve 2017-072018-07-23 Glenna etal assistance letal d 2-15 09:15:00 Rose Marie required 17:26: [id number] 00 Musculoskel requires Musculoske Resolve 2017-072018-07-23 Glenna etal human letal d 2-15 09:15:00 Rose Marie assist to 17:26: [id number] leave home 00 Neuro anxiety Neuro/Emot Resolve 2017-072018-07-23 Ayesha present ion d 2-18 09:15:00 Edward 09:15: [id number] 00 Pain knowledge/s Pain Mgmt Resolve 2018-09-10 Edyta poole d 08-27 09:20:00 [place] deficit: pt 10:37: [id number] 00 Respiratory asthma Respirator Resolve 2018-09-17 Ayesha y d 09-10 09:09:00 Edward 09:20: [id number] 00 Neuro anxiety Neuro/Emot Resolve 2018-09-24 Ayesha present ion d 3- 08:49:00 Edward 09:09: [id number] 00 Medication oral med Meds Resolve 2018-09-24 Danni guzman d 09-18 08:49:00 Vallely required 10:00: 00 Safety safety Safety Resolve 2019-07-08 Ayesha hazards d 10-08 09:05:00 Edward present 08:55: [id number] 00 Safety fall risk Safety Resolve 2019-0 2019-07-15 Ayesha factor d 10-08 08:32:00 Edward present 08:55: [id number] 00 Safety risk for Safety Active 2018- Ayesha sidhuiza 10-08 Edward tion 08:55: [id number] 00 Medication injectable Meds Unknown 2018- Ayesha med 10-08 Edward assistance 08:55: [id number] required 00 Neuro anxiety Neuro/Emot Resolve 2018-2018-12-05 Ayesha roman ion d 11-19 09:00:00 Edward 08:58: [id number] 00 Medication oral med Meds Resolve 2018-12-31 Danni assistance d 12-05 08:35:00 Vallely required 09:00: 00 Cardio hypertensio Cardiovasc Resolve 2018-2019-02-11 Ayesha mane 01-15 11:00:00 Edward 07:30: [id number] 00 Medication oral med Meds Resolve 2019-02-11 Ayesha assistance d 01-15 11:00:00 Edward required 07:30: [id number] 00 Medication injectable Meds Unknown Ayesha med 01-15 Edward assistance 07:30: [id number] required 00 Elimination urinary Eliminatio Resolve 2019-02-24 Glenna incontinenc n d 8-20 14:30:00 Mitchell e 07:35: [employer] 00 [id number] Elimination urinary Eliminatio Resolve 2018-072019-06-10 Glenna incontinenc n d 0-22 09:30:00 Mitchell e 07:32: [employer] 00 [id number] Sensory impaired Sensory Resolve 2018-072019-06-10 Ayesha hearing d 1-14 09:30:00 Edward 10:00: [id number] 00 Medication oral med Meds Resolve 2018-072019-05-15 Ayesha assistance d 14 10:00:00 Edward required 10:00: [id number] 00 Safety safety Safety Resolve 2019-07-15 Ayesha hazards d 07-15 08:32:00 Edward present 08:32: [id number] 00 Allergies, Adverse Reactions, Alerts Allergy Allergy [...] Observation Time Observation Value Comments SYSTOLIC mm[Hg] 2019-07-29 18:10:06 128 mm[Hg] mm[Hg] Method: Sit SYSTOLIC mm[Hg] 2019-07-15 18:09:52 156 mm[Hg] mm[Hg] Method: Stand DIASTOLIC mm[Hg] 2019-07-29 18:10:06 68 mm[Hg] mm[Hg] Method: Sit DIASTOLIC mm[Hg] 2019-07-15 18:09:52 84 mm[Hg] mm[Hg] Method: Stand PULSE 2019-07-29 18:10:06 78 /min /min RESP RATE 2019-07-29 18:10:06 16 /min /min TEMP 2019-07-29 18:10:06 98.6 [degF] Procedures This patient has no known procedures. Results This patient has no known results.
--- OUTSIDE RECORDS SUMMARY | 2019-09-01 15:43 | XMS REPORT ---
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, disorder, 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, recurrent, unspecified unspecified Migraine Migraine Diagnosis Active 2014-07 Ayesha with aura, with aura, 0-01 Edward not not [id number] intractable intractable , w/o , w/o status status migrainosus migrainosus Other long Other long Diagnosis Active 2014-07 Ayesha term term 0-01 Edward (current) (current) [id number] drug drug therapy therapy Sciatica, Sciatica, Diagnosis Active 2014-07 Ayesha unspecified unspecified 0-01 Edward side side [id number] Other long Other long Diagnosis Active Ayesha term term Edward (current) (current) [id number] drug drug therapy therapy Other symp Other symp Diagnosis Active Ayesha and signs w and signs w Edward cogn fnctns cogn fnctns [id number] fol unsp fol unsp cerebvasc cerebvasc dis dis Pain frequent Pain Mgmt Resolve 2018-09-10 Brittani pain d 08-06 09:20:00 Roney 08:40: [id number] 00 Pain knowledge/s Pain Mgmt Resolve 2015-11-23 Brittani kill d 08-06 11:52:00 Roney deficit: pt 08:40: [id number] 00 Sensory impaired Sensory Resolve 2015-12-06 Brittani hearing d 2- 08:44:00 Roney 08:40: [id number] 00 Nutrition knowledge/s Nutrition Resolve 2015-11-23 Brittani kill d 2- 11:52:00 Sim deficit: pt 08:40: [id number] 00 Safety fall risk Safety Resolve 2015-08-06 Brittani factor d 2- 08:40:00 Sim present 08:40: [id number] 00 Safety risk for Safety Resolve 2015-10-05 Brittani hospitaliza d 2- 13:00:00 Sim tion 08:40: [id number] 00 Safety safety Safety Resolve 2015-08-06 Brittani hazards d 08-06 08:40:00 Sim present 08:40: [id number] 00 Medication injectable Meds Resolve 2016-11-28 Brittani med d 2 09:00:00 Sim assistance 08:40: [id number] required 00 Medication knowledge/s Meds Resolve 2015-10-05 Brittani kill d 2- 13:00:00 Sim deficit: pt 08:40: [id number] 00 Medication oral med Meds Resolve 2015-10-05 Brittani assistance d 2 13:00:00 Sim required 08:40: [id number] 00 Diagnoses knowledge/s Diagnoses Resolve 2016-12-26 Brittani kill d 2 09:15:00 Sim deficit: pt 08:40: [id number] 00 Integument other wound Integument Resolve 2015-10-05 Jacquelin present d 3- 13:00:00 Adelso 10:30: [id number] 00 Respiratory lung sounds Respirator Resolve 2015-10-05 Brittani deficit y d - 13:00:00 Sim 13:00: [id number] 00 Neuro anxiety Neuro/Emot Resolve 2015-12-06 Brittani present ion d 10-04 08:44:00 Roney 13:00: [id number] 00 Safety fall risk Safety Resolve 2016-04-04 Brittani factor d - 10:04:00 Sim present 13:00: [id number] 00 Elimination urinary Eliminatio Resolve 2015-11-23 Jacquelin frequency n d 10-11 11:52:00 Adelso 11:00: [id number] 00 Safety risk for Safety Resolve 2016-04-04 Brittani sidhuiza d 11-01 10:04:00 Roney tion 17:19: [id number] 00 Respiratory lung sounds Respirator Resolve 2015-12-06 Emmie deficit y d 11-22 08:44:00 Jerram [employer] 11:52: [id number] 00 Respiratory dyspnea Respirator Resolve 2016-09-26 Emmie present y d 11-22 09:00:00 Jerram [employer] 11:52: [id number] 00 Nutrition knowledge/s Nutrition Resolve 2015-12-06 Emmie kill d 11-29 08:44:00 Jerram [employer] deficit: pt 10:06: [id number] 00 Integument other wound Integument Resolve 2015-12-06 Brittani present d 12-05 08:44:00 Roney 08:44: [id number] 00 Medication knowledge/s Meds Resolve 2015-12-06 Brittani kill d 12-05 08:44:00 Roney deficit: pt 08:44: [id number] 00 Respiratory lung sounds Respirator Active Emmie deficit y 12-06 Jerram [employer] 09:00: [id number] Test/Treatm tests Test/Injec Resolve 2016-07-25 Emmie ent ordered t/Willy d 12-21 12:00:00 Jerram [employer] [id number] Medication oral med Meds Unknown Emmie assistance 01-10 Jerram [employer] required 09:00: [id number] 00 Integument other wound Integument Resolve 2016-02-01 Brittani present d 01-31 10:10:00 Roney 10:10: [id number] 00 Elimination urinary Eliminatio Resolve 2016-02-01 Brittani incontinenc n d 01-31 10:10:00 Roney deluca 10:10: [id number] 00 Elimination urinary Eliminatio Resolve 2016-04-04 Emmie frequency n d 02-07 10:04:00 Jerram [employer] 09:15: [id number] 00 Elimination urinary Eliminatio Resolve 2016-04-04 Brittani incontinenc n d 03-28 10:04:00 Roney e 09:30: [id number] 00 Integument other wound Integument Resolve 2015-072016-04-04 Brittani present d 0 10:04:00 Roney 10:04: [id number] 00 Integument other wound Integument Resolve 2015-072016-06-01 Brittani present d 08-02 09:58:00 Roney 09:58: [id number] 00 Elimination urinary Eliminatio Resolve 2015-072016-07-25 Ayesha incontinenc n d 2 12:00:00 Edward e 09:15: [id number] 00 Elimination diarrhea Eliminatio Resolve 2015-072016-07-25 Ayesha n d 08-28 12:00:00 Edward 09:15: [id number] 00 Elimination nausea/vomi Eliminatio Resolve 2015-072016-07-25 Ayesha ting n d 08-28 12:00:00 Edward 09:15: [id number] 00 Elimination knowledge/s Eliminatio Resolve 2015-072016-07-25 Ayesha kill n d 08-28 12:00:00 Edward deficit: pt 09:15: [id number] 00 Safety safety Safety Resolve 2016-08-01 Ayesha hazards d 07-25 10:00:00 Edward present 12:00: [id number] 00 Safety fall risk Safety Resolve 2016-08-01 Ayesha factor d 07-25 10:00:00 Edward present 12:00: [id number] 00 Safety risk for Safety Resolve 2016-08-01 Ayesha hospitaliza d 07-25 10:00:00 Edward tion 12:00: [id number] 00 Integument other wound Integument Resolve 2016-08-29 Ayesha present d 08-01 08:50:00 Edward 10:00: [id number] 00 Neuro anxiety Neuro/Emot Resolve 2016-08-29 Ayesha present ion d 08-01 08:50:00 Edward 10:00: [id number] 00 Neuro behavior Neuro/Emot Resolve 2016-08-29 Ayesha problems ion d 08-01 08:50:00 Edward 10:00: [id number] 00 Safety risk for Safety Resolve 2016-08-29 Edyta hospitaliza d 08-08 08:50:00 [place] tion 08:10: [id number] 00 Neuro memory Neuro/Emot Resolve 2016-08-29 Ayesha deficit ion d 08-29 08:50:00 Edward needing 08:50: [id number] supervision 00 Safety safety Safety Resolve 2016-08-29 Ayesha hazards d 08-29 08:50:00 Edward present 08:50: [id number] 00 Safety risk for Safety Resolve 2016-09-29 Edyta hospitaliza d 09-05 09:00:00 [place] tion 08:30: [id number] 00 Integument other wound Integument Resolve 2016-09-29 Ayesha present d 09-29 09:00:00 Edward 09:00: [id number] 00 Safety safety Safety Resolve 2016-09-29 Ayesha hazards d 09-29 09:00:00 Edward present 09:00: [id number] 00 Safety fall risk Safety Resolve 2016-09-29 Ayesha factor d 09-29 09:00:00 Edward present 09:00: [id number] 00 Medication oral med Meds Unknown Ayesha assistance 09-29 Edward required 09:00: [id number] 00 Neuro anxiety Neuro/Emot Resolve 2016-10-31 Ayesha present ion d 10-02 09:15:00 Edward 09:00: [id number] 00 Neuro impaired Neuro/Emot Resolve 2016-10-31 Ayesha decision-ma ion d 10-02 09:15:00 Edward larry 09:00: [id number] 00 Neuro memory Neuro/Emot Resolve 2016-10-31 Ayesha deficit ion d 10-02 09:15:00 Edward needing 09:00: [id number] supervision 00 Safety risk for Safety Resolve 2016-10-31 Ayesha hospitaliza d 10-02 09:15:00 Edward tion 09:00: [id number] 00 Safety safety Safety Resolve 2016-10-31 Ayesha hazards d 10-31 09:15:00 Edward present 09:15: [id number] 00 Safety risk for Safety Resolve 2017-02-27 Edyta hospitaliza d 11-07 09:20:00 [place] tion 08:30: [id number] 00 Integument other wound Integument Resolve 2017-01-29 Ayesha present d 11-28 09:00:00 Edward 09:00: [id number] 00 Safety safety Safety Resolve 2017-02-27 Ayesha hazards d 11-28 09:20:00 Edward present 09:00: [id number] 00 Safety fall risk Safety Resolve 2017-02-27 Ayesha factor d 11-28 09:20:00 Edward present 09:00: [id number] 00 Medication oral med Meds Unknown Ayesha assistance 11-28 Edward required 09:00: [id number] 00 Neuro anxiety Neuro/Emot Resolve 2017-01-23 Ayesha present ion d 12-26 11:00:00 Edward 09:15: [id number] 00 Integument other wound Integument Active Ayesha present 03-27 Edward 09:30: [id number] 00 Neuro anxiety Neuro/Emot Resolve 2016-072017-05-29 Ayesha present ion d 07-15 09:45:00 Edward 09:33: [id number] 00 Safety safety Safety Resolve 2016-072017-05-29 Ayesha hazards d 07-15 09:45:00 Edward present 09:33: [id number] 00 Safety fall risk Safety Resolve 2016-072017-05-29 Ayesha factor d 07-15 09:45:00 Edward present 09:33: [id number] 00 Safety risk for Safety Resolve 2016-072017-05-29 Ayesha hospitaliza d 07-15 09:45:00 Edward tion 09:33: [id number] 00 Neuro anxiety Neuro/Emot Resolve 2017-12-18 Ayesha present ion d 11-23 10:10:00 Edward 13:10: [id number] 00 Musculoskel transfer Musculoske Resolve 2017-12-18 Rossi etal assistance letal d 11-23 10:10:00 Guidelli required 13:10: [id number] 00 Elimination diarrhea Eliminatio Resolve 2017-072018-07-23 Glenna n d 2-15 09:15:00 Rose Marie 17:26: [id number] 00 Medication potential Meds Resolve 2017-072018-07-23 Glenna clinically d 2-15 09:15:00 Rose Marie significant 17:26: [id number] medication 00 issue Medication oral med Meds Resolve 2017-072018-07-23 Glenna assistance d 2- 09:15:00 Rose Marie required 17:26: [id number] 00 Medication injectable Meds Active 2017-07 Glenna med 2- Rose Marie assistance 17:26: [id number] required 00 Musculoskel transfer Musculoske Resolve 2017-072018-07-23 Glenna etal assistance letal d 2- 09:15:00 Rose Marie required 17:26: [id number] 00 Musculoskel requires Musculoske Resolve 2017-072018-07-23 Glenna etal human letal d 2- 09:15:00 Rose Marie assist to 17:26: [id number] leave home 00 Neuro anxiety Neuro/Emot Resolve 2017-072018-07-23 Ayesha present ion d 2- 09:15:00 Edward 09:15: [id number] 00 Pain knowledge/s Pain Mgmt Resolve 2018-09-10 Edyta poole d 08-27 09:20:00 [place]well deficit: pt 10:37: [id number] 00 Respiratory asthma Respirator Resolve 2018-09-17 Ayesha y d 09-10 09:09:00 Edward 09:20: [id number] 00 Neuro anxiety Neuro/Emot Resolve 2018-09-24 Ayesha present ion d 3 08:49:00 Edward 09:09: [id number] 00 Medication oral med Meds Resolve 2018-09-24 Danni assistance d 09-18 08:49:00 Vallely required 10:00: 00 Safety safety Safety Resolve 2019-07-08 Ayesha hazards d 10-08 09:05:00 Edward present 08:55: [id number] 00 Safety fall risk Safety Active Ayesha factor 10-08 Edward present 08:55: [id number] 00 Safety risk for Safety Active Ayesha sidhuiza 10-08 Edward tion 08:55: [id number] 00 Medication injectable Meds Unknown Ayesha med 10-08 Edward assistance 08:55: [id number] required 00 Neuro anxiety Neuro/Emot Resolve 2018-12-05 Ayesha abel olivares d 11-19 09:00:00 Edward 08:58: [id number] 00 Medication oral med Meds Resolve 2018-12-31 Danni guzman d 12-05 08:35:00 Vallely required 09:00: 00 Cardio hypertensio Cardiovasc Resolve 2019-02-11 Ayesha alejandrina mane 01-15 11:00:00 Edward 07:30: [id number] 00 Medication oral med Meds Resolve 2019-02-11 Ayesha assistance d 01-15 11:00:00 Edward required 07:30: [id number] 00 Medication injectable Meds Unknown Ayesha med 01-15 Edward assistance 07:30: [id number] required 00 Elimination urinary Eliminatio Resolve 2019-02-24 Glenna incontinenc n d 8-20 14:30:00 Mitchell e 07:35: [employer] 00 [id number] Elimination urinary Eliminatio Resolve 2018-072019-06-10 Glenna incontinenc n d 0-22 09:30:00 Mitchell e 07:32: [employer] 00 [id number] Sensory impaired Sensory Resolve 2018-072019-06-10 Ayesha hearing d 1-14 09:30:00 Edward 10:00: [id number] 00 Medication oral med Meds Resolve 2018-072019-05-15 Ayesha assistance d 1-14 10:00:00 Ewdard required 10:00: [id number] 00 Allergies, Adverse Reactions, Alerts Allergy Allergy Status Severity Reaction(s) Onset Inactive Treating Comments Name Type Date Date Clinician Unknown None Active Unknown None Unknown No Known Allergies For This Patient Medications Ordered Filled Start Stop Current Ordering Indication Dosage Frequency Signature Comments Components Medication Medication Date Date Medication? Clinician (SIG) Name Name ciclopirox ciclopirox 2016-0 2017- No Breiman .77% Unknown 0.77 % 0.77 [...] on aerosol on aerosol puffs) inhaler inhaler [facility] 2016- No Breiman .2% Unknown 10-28 Henrry MATHIAS Zetia 10 mg Zetia 10 mg 2016- No Breiman 10 MG Unknown tablet tablet 10-28 Henrry MATHIAS Zoloft 50 Zoloft 50 No Breiman 50 MG- Unknown mg tablet mg tablet 3 Henrry MATHIAS 1 tab penicillin penicillin 2015- [...] 5 mg tablet 5 mg tablet 09-26 ,Henrry Nystop Nystop 2017- No Breiman 1 Unknown [...] Observation Time Observation Value Comments SYSTOLIC mm[Hg] 2019-07-08 18:09:45 130 mm[Hg] mm[Hg] Method: Sit SYSTOLIC mm[Hg] 2019-05-15 18:08:51 120 mm[Hg] mm[Hg] Method: Stand DIASTOLIC mm[Hg] 2019-07-08 18:09:45 78 mm[Hg] mm[Hg] Method: Sit DIASTOLIC mm[Hg] 2019-05-15 18:08:51 62 mm[Hg] mm[Hg] Method: Stand PULSE 2019-07-08 18:09:45 65 /min /min RESP RATE 2019-07-08 18:09:45 14 /min /min TEMP 2019-07-08 18:09:45 97.7 [degF] Procedures This patient has no known procedures. Results This patient has no known results.
--- OUTSIDE RECORDS SUMMARY | 2019-09-01 15:43 | XMS REPORT ---
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, disorder, 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, recurrent, unspecified unspecified Migraine Migraine Diagnosis Active 2014-07 Ayesha with aura, with aura, 0-01 Edward not not [id number] intractable intractable , w/o , w/o status status migrainosus migrainosus Other long Other long Diagnosis Active 2014-07 Ayesha term term 0-01 Edward (current) (current) [id number] drug drug therapy therapy Sciatica, Sciatica, Diagnosis Active 2014-07 Ayesha unspecified unspecified 0-01 Edward side side [id number] Other long Other long Diagnosis Active Ayesha term term Edward (current) (current) [id number] drug drug therapy therapy Other symp Other symp Diagnosis Active Ayesha and signs w and signs w Edward cogn fnctns cogn fnctns [id number] fol unsp fol unsp cerebvasc cerebvasc dis dis Pain frequent Pain Mgmt Resolve 2018-09-10 Brittani pain d 08-06 09:20:00 Roney 08:40: [id number] 00 Pain knowledge/s Pain Mgmt Resolve 2015-11-23 Brittani kill d 08-06 11:52:00 Roney deficit: pt 08:40: [id number] 00 Sensory impaired Sensory Resolve 2015-12-06 Brittani hearing d 2- 08:44:00 Roney 08:40: [id number] 00 Nutrition knowledge/s Nutrition Resolve 2015-11-23 Brittani kill d 2- 11:52:00 Sim deficit: pt 08:40: [id number] 00 Safety fall risk Safety Resolve 2015-08-06 Brittani factor d 2- 08:40:00 Sim present 08:40: [id number] 00 Safety risk for Safety Resolve 2015-10-05 Brittani hospitaliza d 2- 13:00:00 Sim tion 08:40: [id number] 00 Safety safety Safety Resolve 2015-08-06 Brittani hazards d 08-06 08:40:00 Sim present 08:40: [id number] 00 Medication injectable Meds Resolve 2016-11-28 Brittani med d 2 09:00:00 Sim assistance 08:40: [id number] required 00 Medication knowledge/s Meds Resolve 2015-10-05 Brittani kill d 2- 13:00:00 Sim deficit: pt 08:40: [id number] 00 Medication oral med Meds Resolve 2015-10-05 Brittani assistance d 2 13:00:00 Sim required 08:40: [id number] 00 Diagnoses knowledge/s Diagnoses Resolve 2016-12-26 Brittani kill d 2 09:15:00 Sim deficit: pt 08:40: [id number] 00 Integument other wound Integument Resolve 2015-10-05 Jacquelin present d 3- 13:00:00 Adelso 10:30: [id number] 00 Respiratory lung sounds Respirator Resolve 2015-10-05 Brittani deficit y d - 13:00:00 Sim 13:00: [id number] 00 Neuro anxiety Neuro/Emot Resolve 2015-12-06 Brittani present ion d 10-04 08:44:00 Roney 13:00: [id number] 00 Safety fall risk Safety Resolve 2016-04-04 Brittani factor d - 10:04:00 Sim present 13:00: [id number] 00 Elimination urinary Eliminatio Resolve 2015-11-23 Jacquelin frequency n d 10-11 11:52:00 Adelso 11:00: [id number] 00 Safety risk for Safety Resolve 2016-04-04 Brittani sidhuiza d 11-01 10:04:00 Roney tion 17:19: [id number] 00 Respiratory lung sounds Respirator Resolve 2015-12-06 Emmie deficit y d 11-22 08:44:00 Jerram OR NURSE MANAGER 11:52: [id number] 00 Respiratory dyspnea Respirator Resolve 2016-09-26 Emmie present y d 11-22 09:00:00 Jerram OR NURSE MANAGER 11:52: [id number] 00 Nutrition knowledge/s Nutrition Resolve 2015-12-06 Emmie kill d 11-29 08:44:00 Jerram OR NURSE MANAGER deficit: pt 10:06: [id number] 00 Integument other wound Integument Resolve 2015-12-06 Brittani present d 12-05 08:44:00 Roney 08:44: [id number] 00 Medication knowledge/s Meds Resolve 2015-12-06 Brittani kill d 12-05 08:44:00 Roney deficit: pt 08:44: [id number] 00 Respiratory lung sounds Respirator Active Emmie deficit y 12-06 Jerram OR NURSE MANAGER 09:00: [id number] Test/Treatm tests Test/Injec Resolve 2016-07-25 Emmie ent ordered t/Willy d 12-21 12:00:00 Jerram OR NURSE MANAGER [id number] Medication oral med Meds Unknown Emmie assistance 01-10 Jerram OR NURSE MANAGER required 09:00: [id number] 00 Integument other wound Integument Resolve 2016-02-01 Brittani present d 01-31 10:10:00 Roney 10:10: [id number] 00 Elimination urinary Eliminatio Resolve 2016-02-01 Brittani incontinenc n d 01-31 10:10:00 Roney deluca 10:10: [id number] 00 Elimination urinary Eliminatio Resolve 2016-04-04 Emmie frequency n d 02-07 10:04:00 Jerram OR NURSE MANAGER 09:15: [id number] 00 Elimination urinary Eliminatio Resolve 2016-04-04 Brittani incontinenc n d 03-28 10:04:00 Roney e 09:30: [id number] 00 Integument other wound Integument Resolve 2015-072016-04-04 Brittani present d 0 10:04:00 Roney 10:04: [id number] 00 Integument other wound Integument Resolve 2015-072016-06-01 Brittani present d 08-02 09:58:00 Roney 09:58: [id number] 00 Elimination urinary Eliminatio Resolve 2015-072016-07-25 Ayesha incontinenc n d 2 12:00:00 Edward e 09:15: [id number] 00 Elimination diarrhea Eliminatio Resolve 2015-072016-07-25 Ayesha n d 08-28 12:00:00 Edward 09:15: [id number] 00 Elimination nausea/vomi Eliminatio Resolve 2015-072016-07-25 Ayesha ting n d 08-28 12:00:00 Edward 09:15: [id number] 00 Elimination knowledge/s Eliminatio Resolve 2015-072016-07-25 Ayesha kill n d 08-28 12:00:00 Edward deficit: pt 09:15: [id number] 00 Safety safety Safety Resolve 2016-08-01 Ayesha hazards d 07-25 10:00:00 Edward present 12:00: [id number] 00 Safety fall risk Safety Resolve 2016-08-01 Ayesha factor d 07-25 10:00:00 Edward present 12:00: [id number] 00 Safety risk for Safety Resolve 2016-08-01 Ayesha hospitaliza d 07-25 10:00:00 Edward tion 12:00: [id number] 00 Integument other wound Integument Resolve 2016-08-29 Ayesha present d 08-01 08:50:00 Edward 10:00: [id number] 00 Neuro anxiety Neuro/Emot Resolve 2016-08-29 Ayesha present ion d 08-01 08:50:00 Edward 10:00: [id number] 00 Neuro behavior Neuro/Emot Resolve 2016-08-29 Ayesha problems ion d 08-01 08:50:00 Edward 10:00: [id number] 00 Safety risk for Safety Resolve 2016-08-29 Edyta hospitaliza d 08-08 08:50:00 Lipscomb tion 08:10: [id number] 00 Neuro memory Neuro/Emot Resolve 2016-08-29 Ayesha deficit ion d 08-29 08:50:00 Edward needing 08:50: [id number] supervision 00 Safety safety Safety Resolve 2016-08-29 Ayesha hazards d 08-29 08:50:00 Edward present 08:50: [id number] 00 Safety risk for Safety Resolve 2016-09-29 Edyta hospitaliza d 09-05 09:00:00 Lipscomb tion 08:30: [id number] 00 Integument other wound Integument Resolve 2016-09-29 Ayesha present d 09-29 09:00:00 Edward 09:00: [id number] 00 Safety safety Safety Resolve 2016-09-29 Ayesha hazards d 09-29 09:00:00 Edward present 09:00: [id number] 00 Safety fall risk Safety Resolve 2016-09-29 Ayesha factor d 09-29 09:00:00 Edward present 09:00: [id number] 00 Medication oral med Meds Unknown Ayesha assistance 09-29 Edward required 09:00: [id number] 00 Neuro anxiety Neuro/Emot Resolve 2016-10-31 Ayesha present ion d 10-02 09:15:00 Edward 09:00: [id number] 00 Neuro impaired Neuro/Emot Resolve 2016-10-31 Ayesha decision-ma ion d 10-02 09:15:00 Edward larry 09:00: [id number] 00 Neuro memory Neuro/Emot Resolve 2016-10-31 Ayesha deficit ion d 10-02 09:15:00 Edward needing 09:00: [id number] supervision 00 Safety risk for Safety Resolve 2016-10-31 Ayesha hospitaliza d 10-02 09:15:00 Edward tion 09:00: [id number] 00 Safety safety Safety Resolve 2016-10-31 Ayesha hazards d 10-31 09:15:00 Edward present 09:15: [id number] 00 Safety risk for Safety Resolve 2017-02-27 Edyta hospitaliza d 11-07 09:20:00 Lipscomb tion 08:30: [id number] 00 Integument other wound Integument Resolve 2017-01-29 Ayesha present d 11-28 09:00:00 Edward 09:00: [id number] 00 Safety safety Safety Resolve 2017-02-27 Ayesha hazards d 11-28 09:20:00 Edward present 09:00: [id number] 00 Safety fall risk Safety Resolve 2017-02-27 Ayesha factor d 11-28 09:20:00 Edward present 09:00: [id number] 00 Medication oral med Meds Unknown Ayesha assistance 11-28 Edward required 09:00: [id number] 00 Neuro anxiety Neuro/Emot Resolve 2017-01-23 Ayesha present ion d 12-26 11:00:00 Edward 09:15: [id number] 00 Integument other wound Integument Active Ayesha present 03-27 Edward 09:30: [id number] 00 Neuro anxiety Neuro/Emot Resolve 2016-072017-05-29 Ayesha present ion d 07-15 09:45:00 Edward 09:33: [id number] 00 Safety safety Safety Resolve 2016-072017-05-29 Ayesha hazards d 07-15 09:45:00 Edward present 09:33: [id number] 00 Safety fall risk Safety Resolve 2016-072017-05-29 Ayesha factor d 07-15 09:45:00 Edward present 09:33: [id number] 00 Safety risk for Safety Resolve 2016-072017-05-29 Ayesha hospitaliza d 07-15 09:45:00 Edward tion 09:33: [id number] 00 Neuro anxiety Neuro/Emot Resolve 2017-12-18 Ayesha present ion d 11-23 10:10:00 Edward 13:10: [id number] 00 Musculoskel transfer Musculoske Resolve 2017-12-18 Rossi etal assistance letal d 11-23 10:10:00 Guidelli required 13:10: [id number] 00 Elimination diarrhea Eliminatio Resolve 2017-072018-07-23 Glenna n d 2-15 09:15:00 Rose Marie 17:26: [id number] 00 Medication potential Meds Resolve 2017-072018-07-23 Glenna clinically d 2-15 09:15:00 Rose Marie significant 17:26: [id number] medication 00 issue Medication oral med Meds Resolve 2017-072018-07-23 Glenna assistance d 2-15 09:15:00 Rose Marie required 17:26: [id number] 00 Medication injectable Meds Resolve 2017-072019-05-15 Glenna med d 2-15 10:00:00 Rose Marie assistance 17:26: [id number] required 00 Musculoskel transfer Musculoske Resolve 2017-072018-07-23 Glenna etal assistance letal d 2-15 09:15:00 Rose Marie required 17:26: [id number] 00 Musculoskel requires Musculoske Resolve 2017-072018-07-23 Glenna etal human letal d 2-15 09:15:00 Rose Marie assist to 17:26: [id number] leave home 00 Neuro anxiety Neuro/Emot Resolve 2017-072018-07-23 Ayesha present ion d 2-18 09:15:00 Edward 09:15: [id number] 00 Pain knowledge/s Pain Mgmt Resolve 2018-09-10 Edyta poole d 08-27 09:20:00 Lipscomb deficit: pt 10:37: [id number] 00 Respiratory asthma Respirator Resolve 2018-09-17 Ayesha y d 09-10 09:09:00 Edward 09:20: [id number] 00 Neuro anxiety Neuro/Emot Resolve 2018-09-24 Ayesha present ion d 3- 08:49:00 Edward 09:09: [id number] 00 Medication oral med Meds Resolve 2018-09-24 Danni guzman d 09-18 08:49:00 Vallely required 10:00: 00 Safety safety Safety Resolve 2019-07-08 Ayesha hazards d 10-08 09:05:00 Edward present 08:55: [id number] 00 Safety fall risk Safety Resolve 2019-0 2019-07-15 Ayesha factor d 10-08 08:32:00 Edward present 08:55: [id number] 00 Safety risk for Safety Active 2018- Ayesha sidhuiza 10-08 Edward tion 08:55: [id number] 00 Medication injectable Meds Unknown 2018- Ayesha med 10-08 Edward assistance 08:55: [id number] required 00 Neuro anxiety Neuro/Emot Resolve 2018-2018-12-05 Ayesha roman ion d 11-19 09:00:00 Edward 08:58: [id number] 00 Medication oral med Meds Resolve 2018-12-31 Danni assistance d 12-05 08:35:00 Vallely required 09:00: 00 Cardio hypertensio Cardiovasc Resolve 2018-2019-02-11 Ayesha mane 01-15 11:00:00 Edward 07:30: [id number] 00 Medication oral med Meds Resolve 2019-02-11 Ayesha assistance d 01-15 11:00:00 Edward required 07:30: [id number] 00 Medication injectable Meds Unknown Ayesha med 01-15 Edward assistance 07:30: [id number] required 00 Elimination urinary Eliminatio Resolve 2019-02-24 Glenna incontinenc n d 8-20 14:30:00 Mitchell e 07:35: [employer] 00 [id number] Elimination urinary Eliminatio Resolve 2018-072019-06-10 Glenna incontinenc n d 0-22 09:30:00 Mitchell e 07:32: [employer] 00 [id number] Sensory impaired Sensory Resolve 2018-072019-06-10 Ayesha hearing d 1-14 09:30:00 Edward 10:00: [id number] 00 Medication oral med Meds Resolve 2018-072019-05-15 Ayesha assistance d 14 10:00:00 Edward required 10:00: [id number] 00 Safety safety Safety Resolve 2019-07-15 Ayesha hazards d 07-15 08:32:00 Edward present 08:32: [id number] 00 Allergies, Adverse Reactions, Alerts Allergy Allergy [...]
--- OUTSIDE RECORDS SUMMARY | 2019-09-01 15:43 | XMS REPORT ---
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, disorder, 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, recurrent, unspecified unspecified Migraine Migraine Diagnosis Active 2014-07 Ayesha with aura, with aura, 0-01 Edward not not [id number] intractable intractable , w/o , w/o status status migrainosus migrainosus Other long Other long Diagnosis Active 2014-07 Ayesha term term 0-01 Edward (current) (current) [id number] drug drug therapy therapy Sciatica, Sciatica, Diagnosis Active 2014-07 Ayesha unspecified unspecified 0-01 Edward side side [id number] Other long Other long Diagnosis Active Ayesha term term Edward (current) (current) [id number] drug drug therapy therapy Other symp Other symp Diagnosis Active Ayesha and signs w and signs w Edward cogn fnctns cogn fnctns [id number] fol unsp fol unsp cerebvasc cerebvasc dis dis Pain frequent Pain Mgmt Resolve 2018-09-10 Brittani pain d 08-06 09:20:00 Roney 08:40: [id number] 00 Pain knowledge/s Pain Mgmt Resolve 2015-11-23 Brittani kill d 08-06 11:52:00 Roney deficit: pt 08:40: [id number] 00 Sensory impaired Sensory Resolve 2015-12-06 Brittani hearing d 2- 08:44:00 Roney 08:40: [id number] 00 Nutrition knowledge/s Nutrition Resolve 2015-11-23 Brittani kill d 2- 11:52:00 Sim deficit: pt 08:40: [id number] 00 Safety fall risk Safety Resolve 2015-08-06 Brittani factor d 2- 08:40:00 Sim present 08:40: [id number] 00 Safety risk for Safety Resolve 2015-10-05 Brittani hospitaliza d 2- 13:00:00 Sim tion 08:40: [id number] 00 Safety safety Safety Resolve 2015-08-06 Brittani hazards d 08-06 08:40:00 Sim present 08:40: [id number] 00 Medication injectable Meds Resolve 2016-11-28 Brittani med d 2 09:00:00 Sim assistance 08:40: [id number] required 00 Medication knowledge/s Meds Resolve 2015-10-05 Brittani kill d 2- 13:00:00 Sim deficit: pt 08:40: [id number] 00 Medication oral med Meds Resolve 2015-10-05 Brittani assistance d 2 13:00:00 Sim required 08:40: [id number] 00 Diagnoses knowledge/s Diagnoses Resolve 2016-12-26 Brittani kill d 2 09:15:00 Sim deficit: pt 08:40: [id number] 00 Integument other wound Integument Resolve 2015-10-05 Jacquelin present d 3- 13:00:00 Adelso 10:30: [id number] 00 Respiratory lung sounds Respirator Resolve 2015-10-05 Brittani deficit y d - 13:00:00 Sim 13:00: [id number] 00 Neuro anxiety Neuro/Emot Resolve 2015-12-06 Brittani present ion d 10-04 08:44:00 Roney 13:00: [id number] 00 Safety fall risk Safety Resolve 2016-04-04 Brittani factor d - 10:04:00 Sim present 13:00: [id number] 00 Elimination urinary Eliminatio Resolve 2015-11-23 Jacquelin frequency n d 10-11 11:52:00 [place] 11:00: [id number] 00 Safety risk for Safety Resolve 2016-04-04 Brittani sidhuiza d 11-01 10:04:00 Roney tion 17:19: [id number] 00 Respiratory lung sounds Respirator Resolve 2015-12-06 Emmie deficit y d 11-22 08:44:00 Jerram [employer] SPECIALIST 11:52: [id number] 00 Respiratory dyspnea Respirator Resolve 2016-09-26 Emmie present y d 11-22 09:00:00 Jerram [employer]IST 11:52: [id number] 00 Nutrition knowledge/s Nutrition Resolve 2015-12-06 Emmie kill d 11-29 08:44:00 Jerram [employer] deficit: pt 10:06: [id number] 00 Integument other wound Integument Resolve 2015-12-06 Brittani present d 12-05 08:44:00 Roney 08:44: [id number] 00 Medication knowledge/s Meds Resolve 2015-12-06 Brittani kill d 12-05 08:44:00 Roney deficit: pt 08:44: [id number] 00 Respiratory lung sounds Respirator Active Emmie deficit y 12-06 Jerram [employer] SPECIALIST 09:00: [id number] Test/Treatm tests Test/Injec Resolve 2016-07-25 Emmie ent ordered t/Willy d 12-21 12:00:00 Jerram [employer] SPECIALIST [id number] Medication oral med Meds Unknown Emmie assistance 01-10 Jerram [employer]IST required 09:00: [id number] Integument other wound Integument Resolve 2016-02-01 Brittani present d 01-31 10:10:00 Roney 10:10: [id number] 00 Elimination urinary Eliminatio Resolve 2016-02-01 Brittani incontinenc n d 01-31 10:10:00 Roney deluca 10:10: [id number] 00 Elimination urinary Eliminatio Resolve 2016-04-04 Emmie frequency n d 02-07 10:04:00 Jerram [employer]IST 09:15: [id number] 00 Elimination urinary Eliminatio Resolve 2016-04-04 Brittani incontinenc n d 03-28 10:04:00 Roney e 09:30: [id number] 00 Integument other wound Integument Resolve 2015-072016-04-04 Brittani present d 0 10:04:00 Roney 10:04: [id number] 00 Integument other wound Integument Resolve 2015-072016-06-01 Brittani present d 08-02 09:58:00 Roney 09:58: [id number] 00 Elimination urinary Eliminatio Resolve 2015-072016-07-25 Ayesha incontinenc n d 2 12:00:00 Edward e 09:15: [id number] 00 Elimination diarrhea Eliminatio Resolve 2015-072016-07-25 Ayesha n d 08-28 12:00:00 Edward 09:15: [id number] 00 Elimination nausea/vomi Eliminatio Resolve 2015-072016-07-25 Ayesha ting n d 08-28 12:00:00 Edward 09:15: [id number] 00 Elimination knowledge/s Eliminatio Resolve 2015-072016-07-25 Ayesha kill n d 08-28 12:00:00 Edward deficit: pt 09:15: [id number] 00 Safety safety Safety Resolve 2016-08-01 Ayesha hazards d 07-25 10:00:00 Edward present 12:00: [id number] 00 Safety fall risk Safety Resolve 2016-08-01 Ayesha factor d 07-25 10:00:00 Edward present 12:00: [id number] 00 Safety risk for Safety Resolve 2016-08-01 Ayesha hospitaliza d 07-25 10:00:00 Edward tion 12:00: [id number] 00 Integument other wound Integument Resolve 2016-08-29 Ayesha present d 08-01 08:50:00 Edward 10:00: [id number] 00 Neuro anxiety Neuro/Emot Resolve 2016-08-29 Ayesha present ion d 08-01 08:50:00 Edward 10:00: [id number] 00 Neuro behavior Neuro/Emot Resolve 2016-08-29 Ayesha problems ion d 08-01 08:50:00 Edward 10:00: [id number] 00 Safety risk for Safety Resolve 2016-08-29 Edyta hospitaliza d 08-08 08:50:00 [place] tion 08:10: [id number] 00 Neuro memory Neuro/Emot Resolve 2016-08-29 Ayesha deficit ion d 08-29 08:50:00 Edward needing 08:50: [id number] supervision 00 Safety safety Safety Resolve 2016-08-29 Ayesha hazards d 08-29 08:50:00 Edward present 08:50: [id number] 00 Safety risk for Safety Resolve 2016-09-29 Edyta hospitaliza d 09-05 09:00:00 [place] tion 08:30: [id number] 00 Integument other wound Integument Resolve 2016-09-29 Ayesha present d 09-29 09:00:00 Edward 09:00: [id number] 00 Safety safety Safety Resolve 2016-09-29 Ayesha hazards d 09-29 09:00:00 Edward present 09:00: [id number] 00 Safety fall risk Safety Resolve 2016-09-29 Ayesha factor d 09-29 09:00:00 Edward present 09:00: [id number] 00 Medication oral med Meds Unknown Ayesha assistance 09-29 Edward required 09:00: [id number] 00 Neuro anxiety Neuro/Emot Resolve 2016-10-31 Ayesha present ion d 10-02 09:15:00 Edward 09:00: [id number] 00 Neuro impaired Neuro/Emot Resolve 2016-10-31 Ayesha decision-ma ion d 10-02 09:15:00 Edward larry 09:00: [id number] 00 Neuro memory Neuro/Emot Resolve 2016-10-31 Ayesha deficit ion d 10-02 09:15:00 Edward needing 09:00: [id number] supervision 00 Safety risk for Safety Resolve 2016-10-31 Ayesha hospitaliza d 10-02 09:15:00 Edward tion 09:00: [id number] 00 Safety safety Safety Resolve 2016-10-31 Ayesha hazards d 10-31 09:15:00 Edward present 09:15: [id number] 00 Safety risk for Safety Resolve 2017-02-27 Edyta hospitaliza d 11-07 09:20:00 [place] tion 08:30: [id number] 00 Integument other wound Integument Resolve 2017-01-29 Ayesha present d 11-28 09:00:00 Edward 09:00: [id number] 00 Safety safety Safety Resolve 2017-02-27 Ayesha hazards d 11-28 09:20:00 Edward present 09:00: [id number] 00 Safety fall risk Safety Resolve 2017-02-27 Ayesha factor d 11-28 09:20:00 Edward present 09:00: [id number] 00 Medication oral med Meds Unknown Ayesha assistance 11-28 Edward required 09:00: [id number] 00 Neuro anxiety Neuro/Emot Resolve 2017-01-23 Ayesha present ion d 12-26 11:00:00 Edward 09:15: [id number] 00 Integument other wound Integument Active Ayesha present 03-27 Edward 09:30: [id number] 00 Neuro anxiety Neuro/Emot Resolve 2016-072017-05-29 Ayesha present ion d 07-15 09:45:00 Edward 09:33: [id number] 00 Safety safety Safety Resolve 2016-072017-05-29 Ayesha hazards d 07-15 09:45:00 Edward present 09:33: [id number] 00 Safety fall risk Safety Resolve 2016-072017-05-29 Ayesha factor d 07-15 09:45:00 Edward present 09:33: [id number] 00 Safety risk for Safety Resolve 2016-072017-05-29 Ayesha hospitaliza d 07-15 09:45:00 Edward tion 09:33: [id number] 00 Neuro anxiety Neuro/Emot Resolve 2017-12-18 Ayesha present ion d 11-23 10:10:00 Edward 13:10: [id number] 00 Musculoskel transfer Musculoske Resolve 2017-12-18 Rossi etal assistance letal d 11-23 10:10:00 Guidelli required 13:10: [id number] 00 Elimination diarrhea Eliminatio Resolve 2017-072018-07-23 Glenna n d 2-15 09:15:00 Rose Marie 17:26: [id number] 00 Medication potential Meds Resolve 2017-072018-07-23 Glenna clinically d 2-15 09:15:00 Rose Marie significant 17:26: [id number] medication 00 issue Medication oral med Meds Resolve 2017-072018-07-23 Glenna assistance d 2-15 09:15:00 Rose Marie required 17:26: [id number] 00 Medication injectable Meds Active 2017-07 Glenna med 2- Rose Marie assistance 17:26: [id number] required 00 Musculoskel transfer Musculoske Resolve 2017-072018-07-23 Glenna etal assistance letal d 2- 09:15:00 Rose Marie required 17:26: [id number] 00 Musculoskel requires Musculoske Resolve 2017-072018-07-23 Glenna etal human letal d 2- 09:15:00 Rose Marie assist to 17:26: [id number] leave home 00 Neuro anxiety Neuro/Emot Resolve 2017-072018-07-23 Ayesha present ion d 2-18 09:15:00 Edward 09:15: [id number] 00 Pain knowledge/s Pain Mgmt Resolve 2018-09-10 Edyta poole d 08-27 09:20:00 [place] deficit: pt 10:37: [id number] 00 Respiratory asthma Respirator Resolve 2018-09-17 Ayesha y d 3 09:09:00 Edward 09:20: [id number] 00 Neuro anxiety Neuro/Emot Resolve 2018-09-24 Ayesha present ion d 3 08:49:00 Edward 09:09: [id number] 00 Medication oral med Meds Resolve 2018-09-24 Danni assistance d 09-18 08:49:00 [place] required 10:00: 00 Safety safety Safety Resolve 2019-07-08 Ayesha hazards d 10-08 09:05:00 Edward present 08:55: [id number] 00 Safety fall risk Safety Resolve 2019-07-15 Ayesha factor d 10-08 08:32:00 Edward present 08:55: [id number] 00 Safety risk for Safety Active Ayesha hospitaliza 10-08 Edward tion 08:55: [id number] 00 Medication injectable Meds Unknown Ayehsa med 10-08 Edward assistance 08:55: [id number] required 00 Neuro anxiety Neuro/Emot Resolve 2018-2018-12-05 Ayesha abel ion d 11-19 09:00:00 Edward 08:58: [id number] 00 Medication oral med Meds Resolve 2018-12-31 Danni assistance d 12-05 08:35:00 Valle[place] required 09:00: 00 Cardio hypertensio Cardiovasc Resolve 2018-2019-02-11 Ayesha alejandrina abbottar d 01-15 11:00:00 Edward 07:30: [id number] 00 Medication oral med Meds Resolve 2019-02-11 Ayesha assistance d 01-15 11:00:00 Edward required 07:30: [id number] 00 Medication injectable Meds Unknown Ayesha med 01-15 Edward assistance 07:30: [id number] required 00 Elimination urinary Eliminatio Resolve 2019-02-24 Glenna incontinenc n d 8-20 14:30:00 Mitchell e 07:35: [employer] 00 [id number] Elimination urinary Eliminatio Resolve 2018-072019-06-10 Glenna incontinenc n d 0-22 09:30:00 Mitchell e 07:32: [employer] 00 [id number] Sensory impaired Sensory Resolve 2018-072019-06-10 Ayesha hearing d 1-14 09:30:00 Edward 10:00: [id number] 00 Medication oral med Meds Resolve 2018-072019-05-15 Ayesha assistance d 07-15 10:00:00 Edward required 10:00: [id number] 00 Safety safety Safety Resolve 2019-07-15 Ayesha hazards d 07-15 08:32:00 Edward present 08:32: [id number] 00 Allergies, Adverse Reactions, Alerts Allergy Allergy [...] Observation Time Observation Value Comments SYSTOLIC mm[Hg] 2019-08-05 18:10:13 132 mm[Hg] mm[Hg] Method: Sit SYSTOLIC mm[Hg] 2019-07-15 18:09:52 156 mm[Hg] mm[Hg] Method: Stand DIASTOLIC mm[Hg] 2019-08-05 18:10:13 64 mm[Hg] mm[Hg] Method: Sit DIASTOLIC mm[Hg] 2019-07-15 18:09:52 84 mm[Hg] mm[Hg] Method: Stand PULSE 2019-08-05 18:10:13 68 /min /min RESP RATE 2019-08-05 18:10:13 16 /min /min TEMP 2019-08-05 18:10:13 97.7 [degF] Procedures This patient has no known procedures. Results This patient has no known results.
--- OUTSIDE RECORDS SUMMARY | 2019-09-01 15:43 | XMS REPORT ---
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, disorder, 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, recurrent, unspecified unspecified Migraine Migraine Diagnosis Active 2014-07 Ayesha with aura, with aura, 0-01 Edward not not [id number] intractable intractable , w/o , w/o status status migrainosus migrainosus Other long Other long Diagnosis Active 2014-07 Ayesha term term 0-01 Edward (current) (current) [id number] drug drug therapy therapy Sciatica, Sciatica, Diagnosis Active 2014-07 Ayesha unspecified unspecified 0-01 Edward side side [id number] Other long Other long Diagnosis Active Ayesha term term Edward (current) (current) [id number] drug drug therapy therapy Other symp Other symp Diagnosis Active Ayesha and signs w and signs w Edward cogn fnctns cogn fnctns [id number] fol unsp fol unsp cerebvasc cerebvasc dis dis Pain frequent Pain Mgmt Resolve 2018-09-10 Brittani pain d 08-06 09:20:00 Roney 08:40: [id number] 00 Pain knowledge/s Pain Mgmt Resolve 2015-11-23 Brittani kill d 08-06 11:52:00 Roney deficit: pt 08:40: [id number] 00 Sensory impaired Sensory Resolve 2015-12-06 Brittani hearing d 2- 08:44:00 Roney 08:40: [id number] 00 Nutrition knowledge/s Nutrition Resolve 2015-11-23 Brittani kill d 2- 11:52:00 Sim deficit: pt 08:40: [id number] 00 Safety fall risk Safety Resolve 2015-08-06 Brittani factor d 2- 08:40:00 Sim present 08:40: [id number] 00 Safety risk for Safety Resolve 2015-10-05 Brittani hospitaliza d 2- 13:00:00 Sim tion 08:40: [id number] 00 Safety safety Safety Resolve 2015-08-06 Brittani hazards d 08-06 08:40:00 Sim present 08:40: [id number] 00 Medication injectable Meds Resolve 2016-11-28 Brittani med d 2 09:00:00 Sim assistance 08:40: [id number] required 00 Medication knowledge/s Meds Resolve 2015-10-05 Brittani kill d 2- 13:00:00 Sim deficit: pt 08:40: [id number] 00 Medication oral med Meds Resolve 2015-10-05 Brittani assistance d 2 13:00:00 Sim required 08:40: [id number] 00 Diagnoses knowledge/s Diagnoses Resolve 2016-12-26 Brittani kill d 2 09:15:00 Sim deficit: pt 08:40: [id number] 00 Integument other wound Integument Resolve 2015-10-05 Jacquelin present d 3- 13:00:00 Adelso 10:30: [id number] 00 Respiratory lung sounds Respirator Resolve 2015-10-05 Brittani deficit y d - 13:00:00 Sim 13:00: [id number] 00 Neuro anxiety Neuro/Emot Resolve 2015-12-06 Brittani present ion d 10-04 08:44:00 Roney 13:00: [id number] 00 Safety fall risk Safety Resolve 2016-04-04 Brittani factor d - 10:04:00 Sim present 13:00: [id number] 00 Elimination urinary Eliminatio Resolve 2015-11-23 Jacquelin frequency n d 10-11 11:52:00 Adelso 11:00: [id number] 00 Safety risk for Safety Resolve 2016-04-04 Brittani sidhuiza d 11-01 10:04:00 Roney tion 17:19: [id number] 00 Respiratory lung sounds Respirator Resolve 2015-12-06 Emmie deficit y d 11-22 08:44:00 Jerram [employer] 11:52: [id number] 00 Respiratory dyspnea Respirator Resolve 2016-09-26 Emmie present y d 11-22 09:00:00 Jerram [employer] 11:52: [id number] 00 Nutrition knowledge/s Nutrition Resolve 2015-12-06 Emmie kill d 11-29 08:44:00 Jerram [employer] deficit: pt 10:06: [id number] 00 Integument other wound Integument Resolve 2015-12-06 Brittani present d 12-05 08:44:00 Roney 08:44: [id number] 00 Medication knowledge/s Meds Resolve 2015-12-06 Brittani kill d 12-05 08:44:00 Roney deficit: pt 08:44: [id number] 00 Respiratory lung sounds Respirator Active Emmie deficit y 12-06 Jerram [employer] 09:00: [id number] Test/Treatm tests Test/Injec Resolve 2016-07-25 Emmie ent ordered t/Willy d 12-21 12:00:00 Jerram [employer] [id number] Medication oral med Meds Unknown Emmie assistance 01-10 Jerram [employer] required 09:00: [id number] Integument other wound Integument Resolve 2016-02-01 Brittani present d 01-31 10:10:00 Roney 10:10: [id number] 00 Elimination urinary Eliminatio Resolve 2016-02-01 Brittani incontinenc n d 01-31 10:10:00 Roney deluca 10:10: [id number] 00 Elimination urinary Eliminatio Resolve 2016-04-04 Emmie frequency n d 02-07 10:04:00 Jerram [employer] 09:15: [id number] 00 Elimination urinary Eliminatio Resolve 2016-04-04 Brittani incontinenc n d 03-28 10:04:00 Roney e 09:30: [id number] 00 Integument other wound Integument Resolve 2015-072016-04-04 Brittani present d 0 10:04:00 Roney 10:04: [id number] 00 Integument other wound Integument Resolve 2015-072016-06-01 Brittani present d 08-02 09:58:00 Roney 09:58: [id number] 00 Elimination urinary Eliminatio Resolve 2015-072016-07-25 Ayesha incontinenc n d 2 12:00:00 Edward e 09:15: [id number] 00 Elimination diarrhea Eliminatio Resolve 2015-072016-07-25 Ayesha n d 08-28 12:00:00 Edward 09:15: [id number] 00 Elimination nausea/vomi Eliminatio Resolve 2015-072016-07-25 Ayesha ting n d 08-28 12:00:00 Edward 09:15: [id number] 00 Elimination knowledge/s Eliminatio Resolve 2015-072016-07-25 Ayesha kill n d 08-28 12:00:00 Edward deficit: pt 09:15: [id number] 00 Safety safety Safety Resolve 2016-08-01 Ayesha hazards d 07-25 10:00:00 Edward present 12:00: [id number] 00 Safety fall risk Safety Resolve 2016-08-01 Ayesha factor d 07-25 10:00:00 Edward present 12:00: [id number] 00 Safety risk for Safety Resolve 2016-08-01 Ayesha hospitaliza d 07-25 10:00:00 Edward tion 12:00: [id number] 00 Integument other wound Integument Resolve 2016-08-29 Ayesha present d 08-01 08:50:00 Edward 10:00: [id number] 00 Neuro anxiety Neuro/Emot Resolve 2016-08-29 Ayesha present ion d 08-01 08:50:00 Edward 10:00: [id number] 00 Neuro behavior Neuro/Emot Resolve 2016-08-29 Ayesha problems ion d 08-01 08:50:00 Edward 10:00: [id number] 00 Safety risk for Safety Resolve 2016-08-29 Edyta hospitaliza d 08-08 08:50:00 [place] tion 08:10: [id number] 00 Neuro memory Neuro/Emot Resolve 2016-08-29 Ayesha deficit ion d 08-29 08:50:00 Edward needing 08:50: [id number] supervision 00 Safety safety Safety Resolve 2016-08-29 Ayesha hazards d 08-29 08:50:00 Edward present 08:50: [id number] 00 Safety risk for Safety Resolve 2016-09-29 Edyta hospitaliza d 09-05 09:00:00 [place] tion 08:30: [id number] 00 Integument other wound Integument Resolve 2016-09-29 Ayesha present d 09-29 09:00:00 Edward 09:00: [id number] 00 Safety safety Safety Resolve 2016-09-29 Ayesha hazards d 09-29 09:00:00 Edward present 09:00: [id number] 00 Safety fall risk Safety Resolve 2016-09-29 Ayesha factor d 09-29 09:00:00 Edward present 09:00: [id number] 00 Medication oral med Meds Unknown Ayesha assistance 09-29 Edward required 09:00: [id number] 00 Neuro anxiety Neuro/Emot Resolve 2016-10-31 Ayesha present ion d 10-02 09:15:00 Edward 09:00: [id number] 00 Neuro impaired Neuro/Emot Resolve 2016-10-31 Ayesha decision-ma ion d 10-02 09:15:00 Edward larry 09:00: [id number] 00 Neuro memory Neuro/Emot Resolve 2016-10-31 Ayesha deficit ion d 10-02 09:15:00 Edward needing 09:00: [id number] supervision 00 Safety risk for Safety Resolve 2016-10-31 Ayesha hospitaliza d 10-02 09:15:00 Edward tion 09:00: [id number] 00 Safety safety Safety Resolve 2016-10-31 Ayesha hazards d 10-31 09:15:00 Edward present 09:15: [id number] 00 Safety risk for Safety Resolve 2017-02-27 Edyta hospitaliza d 11-07 09:20:00 [place] tion 08:30: [id number] 00 Integument other wound Integument Resolve 2017-01-29 Ayesha present d 11-28 09:00:00 Edward 09:00: [id number] 00 Safety safety Safety Resolve 2017-02-27 Ayesha hazards d 11-28 09:20:00 Edward present 09:00: [id number] 00 Safety fall risk Safety Resolve 2017-02-27 Ayesha factor d 11-28 09:20:00 Edward present 09:00: [id number] 00 Medication oral med Meds Unknown Ayesha assistance 11-28 Edward required 09:00: [id number] 00 Neuro anxiety Neuro/Emot Resolve 2017-01-23 Ayesha present ion d 12-26 11:00:00 Edward 09:15: [id number] 00 Integument other wound Integument Active Ayesha present 03-27 Edward 09:30: [id number] 00 Neuro anxiety Neuro/Emot Resolve 2016-072017-05-29 Ayesha present ion d 07-15 09:45:00 Edward 09:33: [id number] 00 Safety safety Safety Resolve 2016-072017-05-29 Ayesha hazards d 07-15 09:45:00 Edward present 09:33: [id number] 00 Safety fall risk Safety Resolve 2016-072017-05-29 Ayesha factor d 07-15 09:45:00 Edward present 09:33: [id number] 00 Safety risk for Safety Resolve 2016-072017-05-29 Ayesha hospitaliza d 07-15 09:45:00 Edward tion 09:33: [id number] 00 Neuro anxiety Neuro/Emot Resolve 2017-12-18 Ayesha present ion d 11-23 10:10:00 Edward 13:10: [id number] 00 Musculoskel transfer Musculoske Resolve 2017-12-18 Rossi etal assistance letal d 11-23 10:10:00 Guidelli required 13:10: [id number] 00 Elimination diarrhea Eliminatio Resolve 2017-072018-07-23 Glenna n d 2-15 09:15:00 Rose Marie 17:26: [id number] 00 Medication potential Meds Resolve 2017-072018-07-23 Glenna clinically d 2-15 09:15:00 Rose Marie significant 17:26: [id number] medication 00 issue Medication oral med Meds Resolve 2017-072018-07-23 Glenna assistance d 2- 09:15:00 Rose Marie required 17:26: [id number] 00 Medication injectable Meds Active 2017-07 Glenna med 2- Rose Marie assistance 17:26: [id number] required 00 Musculoskel transfer Musculoske Resolve 2017-072018-07-23 Glenna etal assistance letal d 2- 09:15:00 Rose Marie required 17:26: [id number] 00 Musculoskel requires Musculoske Resolve 2017-072018-07-23 Glenna etal human letal d 2- 09:15:00 Rose Marie assist to 17:26: [id number] leave home 00 Neuro anxiety Neuro/Emot Resolve 2017-072018-07-23 Ayesha present ion d 2- 09:15:00 Edward 09:15: [id number] 00 Pain knowledge/s Pain Mgmt Resolve 2018-09-10 Edyta poole d 08-27 09:20:00 [place] deficit: pt 10:37: [id number] 00 Respiratory asthma Respirator Resolve 2018-09-17 Ayesha y d 09-10 09:09:00 Edward 09:20: [id number] 00 Neuro anxiety Neuro/Emot Resolve 2018-09-24 Ayesha present ion d 3 08:49:00 Edward 09:09: [id number] 00 Medication oral med Meds Resolve 2018-09-24 Danni assistance d 09-18 08:49:00 Valle[place] required 10:00: 00 Safety safety Safety Resolve 2019-07-08 Ayesha hazards d 10-08 09:05:00 Edward present 08:55: [id number] 00 Safety fall risk Safety Active Ayesha factor 10-08 Edward present 08:55: [id number] 00 Safety risk for Safety Active Ayesha sidhuiza 10-08 Edward tion 08:55: [id number] 00 Medication injectable Meds Unknown Ayesha med 10-08 Edward assistance 08:55: [id number] required 00 Neuro anxiety Neuro/Emot Resolve 2018-12-05 Ayesha abel olivares d 11-19 09:00:00 Edward 08:58: [id number] 00 Medication oral med Meds Resolve 2018-12-31 Danni guzman d 12-05 08:35:00 Valle[place] required 09:00: 00 Cardio hypertensio Cardiovasc Resolve 2019-02-11 Ayesha alejandrina mane 01-15 11:00:00 Edward 07:30: [id number] 00 Medication oral med Meds Resolve 2019-02-11 Ayesha assistance d 01-15 11:00:00 Edward required 07:30: [id number] 00 Medication injectable Meds Unknown Ayesha med 01-15 Edward assistance 07:30: [id number] required 00 Elimination urinary Eliminatio Resolve 2019-02-24 Glenna incontinenc n d 8-20 14:30:00 Mitchell e 07:35: [employer] 00 [id number] Elimination urinary Eliminatio Resolve 2018-072019-06-10 Glenna incontinenc n d 0-22 09:30:00 Mitchell e 07:32: [employer] 00 [id number] Sensory impaired Sensory Resolve 2018-072019-06-10 Ayesha hearing d 1-14 09:30:00 Edward 10:00: [id number] 00 Medication oral med Meds Resolve 2018-072019-05-15 Ayesha assistance d 1-14 10:00:00 Edward required 10:00: [id number] 00 Allergies, Adverse Reactions, Alerts Allergy Allergy [...] on aerosol on aerosol puffs) inhaler inhaler [facility] 2016- No Breiman .2% Unknown 10-28 Henrry [...] Breiman 1 Unknown 100,000 100,000 10-09 Henrry MATHISA applica unit/gram unit/gram tion topical topical cream cream lisinopril lisinopril No Breiman Unknown Unknown 10 mg 10 mg 09-17 ,Henrry tablet tablet Vital Signs Vital Name Observation Time Observation Value Comments SYSTOLIC mm[Hg] 2019-07-15 18:09:52 160 mm[Hg] mm[Hg] Method: Sit SYSTOLIC mm[Hg] 2019-07-15 18:09:52 156 mm[Hg] mm[Hg] Method: Stand DIASTOLIC mm[Hg] 2019-07-15 18:09:52 88 mm[Hg] mm[Hg] Method: Sit DIASTOLIC mm[Hg] 2019-07-15 18:09:52 84 mm[Hg] mm[Hg] Method: Stand PULSE 2019-07-15 18:09:52 70 /min /min RESP RATE 2019-07-15 18:09:52 16 /min /min TEMP 2019-07-15 18:09:52 97.3 [degF] Procedures This patient has no known procedures. Results This patient has no known results.
--- OUTSIDE RECORDS SUMMARY | 2019-09-01 15:43 | XMS REPORT ---
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, disorder, 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, recurrent, unspecified unspecified Migraine Migraine Diagnosis Active 2014-07 Ayesha with aura, with aura, 0-01 Edward not not [id number] intractable intractable , w/o , w/o status status migrainosus migrainosus Other long Other long Diagnosis Active 2014-07 Ayesha term term 0-01 Edward (current) (current) [id number] drug drug therapy therapy Sciatica, Sciatica, Diagnosis Active 2014-07 Ayesha unspecified unspecified 0-01 Edward side side [id number] Other long Other long Diagnosis Active Ayesha term term Edward (current) (current) [id number] drug drug therapy therapy Other symp Other symp Diagnosis Active Ayesha and signs w and signs w Edward cogn fnctns cogn fnctns [id number] fol unsp fol unsp cerebvasc cerebvasc dis dis Pain frequent Pain Mgmt Resolve 2018-09-10 Brittani pain d 08-06 09:20:00 Roney 08:40: [id number] 00 Pain knowledge/s Pain Mgmt Resolve 2015-11-23 Brittani kill d 08-06 11:52:00 Roney deficit: pt 08:40: [id number] 00 Sensory impaired Sensory Resolve 2015-12-06 Brittani hearing d 2- 08:44:00 Roney 08:40: [id number] 00 Nutrition knowledge/s Nutrition Resolve 2015-11-23 Brittani kill d 2- 11:52:00 Sim deficit: pt 08:40: [id number] 00 Safety fall risk Safety Resolve 2015-08-06 Brittani factor d 2- 08:40:00 Sim present 08:40: [id number] 00 Safety risk for Safety Resolve 2015-10-05 Brittani hospitaliza d 2- 13:00:00 Sim tion 08:40: [id number] 00 Safety safety Safety Resolve 2015-08-06 Brittani hazards d 08-06 08:40:00 Sim present 08:40: [id number] 00 Medication injectable Meds Resolve 2016-11-28 Brittani med d 2 09:00:00 Sim assistance 08:40: [id number] required 00 Medication knowledge/s Meds Resolve 2015-10-05 Brittani kill d 2- 13:00:00 Sim deficit: pt 08:40: [id number] 00 Medication oral med Meds Resolve 2015-10-05 Brittani assistance d 2 13:00:00 Sim required 08:40: [id number] 00 Diagnoses knowledge/s Diagnoses Resolve 2016-12-26 Brittani kill d 2 09:15:00 Sim deficit: pt 08:40: [id number] 00 Integument other wound Integument Resolve 2015-10-05 Jacquelin present d 3- 13:00:00 Adelso 10:30: [id number] 00 Respiratory lung sounds Respirator Resolve 2015-10-05 Brittani deficit y d - 13:00:00 Sim 13:00: [id number] 00 Neuro anxiety Neuro/Emot Resolve 2015-12-06 Brittani present ion d 10-04 08:44:00 Roney 13:00: [id number] 00 Safety fall risk Safety Resolve 2016-04-04 Brittani factor d - 10:04:00 Sim present 13:00: [id number] 00 Elimination urinary Eliminatio Resolve 2015-11-23 Jacquelin frequency n d 10-11 11:52:00 [place] 11:00: [id number] 00 Safety risk for Safety Resolve 2016-04-04 Brittani sidhuiza d 11-01 10:04:00 Roney tion 17:19: [id number] 00 Respiratory lung sounds Respirator Resolve 2015-12-06 Emmie deficit y d 11-22 08:44:00 Jerram [employer] 11:52: [id number] 00 Respiratory dyspnea Respirator Resolve 2016-09-26 Emmie present y d 11-22 09:00:00 Jerram [employer] 11:52: [id number] 00 Nutrition knowledge/s Nutrition Resolve 2015-12-06 Emmie kill d 11-29 08:44:00 Jerram [employer] deficit: pt 10:06: [id number] 00 Integument other wound Integument Resolve 2015-12-06 Brittani present d 12-05 08:44:00 Roney 08:44: [id number] 00 Medication knowledge/s Meds Resolve 2015-12-06 Brittani kill d 12-05 08:44:00 Roney deficit: pt 08:44: [id number] 00 Respiratory lung sounds Respirator Active Emmie deficit y 12-06 Jerram [employer] 09:00: [id number] Test/Treatm tests Test/Injec Resolve 2016-07-25 Emmie ent ordered t/Willy d 12-21 12:00:00 Jerram [employer] SETTER [id number] Medication oral med Meds Unknown Emmie assistance 01-10 Jerram [employer] required 09:00: [id number] Integument other wound Integument Resolve 2016-02-01 Brittani present d 01-31 10:10:00 Roney 10:10: [id number] 00 Elimination urinary Eliminatio Resolve 2016-02-01 Brittani incontinenc n d 01-31 10:10:00 Roney deluca 10:10: [id number] 00 Elimination urinary Eliminatio Resolve 2016-04-04 Emmie frequency n d 02-07 10:04:00 Jerram [employer] 09:15: [id number] 00 Elimination urinary Eliminatio Resolve 2016-04-04 Brittani incontinenc n d 03-28 10:04:00 Roney e 09:30: [id number] 00 Integument other wound Integument Resolve 2015-072016-04-04 Brittani present d 0 10:04:00 Roney 10:04: [id number] 00 Integument other wound Integument Resolve 2015-072016-06-01 Brittani present d 08-02 09:58:00 Roney 09:58: [id number] 00 Elimination urinary Eliminatio Resolve 2015-072016-07-25 Ayesha incontinenc n d 2 12:00:00 Edward e 09:15: [id number] 00 Elimination diarrhea Eliminatio Resolve 2015-072016-07-25 Ayesha n d 08-28 12:00:00 Edward 09:15: [id number] 00 Elimination nausea/vomi Eliminatio Resolve 2015-072016-07-25 Ayesha ting n d 08-28 12:00:00 Edward 09:15: [id number] 00 Elimination knowledge/s Eliminatio Resolve 2015-072016-07-25 Ayesha kill n d 08-28 12:00:00 Edward deficit: pt 09:15: [id number] 00 Safety safety Safety Resolve 2016-08-01 Ayesha hazards d 07-25 10:00:00 Edward present 12:00: [id number] 00 Safety fall risk Safety Resolve 2016-08-01 Ayesha factor d 07-25 10:00:00 Edward present 12:00: [id number] 00 Safety risk for Safety Resolve 2016-08-01 Ayesha hospitaliza d 07-25 10:00:00 Edward tion 12:00: [id number] 00 Integument other wound Integument Resolve 2016-08-29 Ayesha present d 08-01 08:50:00 Edward 10:00: [id number] 00 Neuro anxiety Neuro/Emot Resolve 2016-08-29 Ayesha present ion d 08-01 08:50:00 Edward 10:00: [id number] 00 Neuro behavior Neuro/Emot Resolve 2016-08-29 Ayesha problems ion d 08-01 08:50:00 Edward 10:00: [id number] 00 Safety risk for Safety Resolve 2016-08-29 Edyta hospitaliza d 08-08 08:50:00 [place] tion 08:10: [id number] 00 Neuro memory Neuro/Emot Resolve 2016-08-29 Ayesha deficit ion d 08-29 08:50:00 Edward needing 08:50: [id number] supervision 00 Safety safety Safety Resolve 2016-08-29 Ayesha hazards d 08-29 08:50:00 Edward present 08:50: [id number] 00 Safety risk for Safety Resolve 2016-09-29 Edyta hospitaliza d 09-05 09:00:00 [place] tion 08:30: [id number] 00 Integument other wound Integument Resolve 2016-09-29 Ayesha present d 09-29 09:00:00 Edward 09:00: [id number] 00 Safety safety Safety Resolve 2016-09-29 Ayesha hazards d 09-29 09:00:00 Edward present 09:00: [id number] 00 Safety fall risk Safety Resolve 2016-09-29 Ayesha factor d 09-29 09:00:00 Edward present 09:00: [id number] 00 Medication oral med Meds Unknown Ayesha assistance 09-29 Edward required 09:00: [id number] 00 Neuro anxiety Neuro/Emot Resolve 2016-10-31 Ayesha present ion d 10-02 09:15:00 Edward 09:00: [id number] 00 Neuro impaired Neuro/Emot Resolve 2016-10-31 Ayesha decision-ma ion d 10-02 09:15:00 Edward larry 09:00: [id number] 00 Neuro memory Neuro/Emot Resolve 2016-10-31 Ayesha deficit ion d 10-02 09:15:00 Edward needing 09:00: [id number] supervision 00 Safety risk for Safety Resolve 2016-10-31 Ayesha hospitaliza d 10-02 09:15:00 Edward tion 09:00: [id number] 00 Safety safety Safety Resolve 2016-10-31 Ayesha hazards d 10-31 09:15:00 Edward present 09:15: [id number] 00 Safety risk for Safety Resolve 2017-02-27 Edyta hospitaliza d 11-07 09:20:00 [place] tion 08:30: [id number] 00 Integument other wound Integument Resolve 2017-01-29 Ayesha present d 11-28 09:00:00 Edward 09:00: [id number] 00 Safety safety Safety Resolve 2017-02-27 Ayesha hazards d 11-28 09:20:00 Edward present 09:00: [id number] 00 Safety fall risk Safety Resolve 2017-02-27 Ayesha factor d 11-28 09:20:00 Edward present 09:00: [id number] 00 Medication oral med Meds Unknown Ayesha assistance 11-28 Edward required 09:00: [id number] 00 Neuro anxiety Neuro/Emot Resolve 2017-01-23 Ayesha present ion d 12-26 11:00:00 Edward 09:15: [id number] 00 Integument other wound Integument Active Ayesha present 03-27 Edward 09:30: [id number] 00 Neuro anxiety Neuro/Emot Resolve 2016-072017-05-29 Ayesha present ion d 07-15 09:45:00 Edward 09:33: [id number] 00 Safety safety Safety Resolve 2016-072017-05-29 Ayesha hazards d 07-15 09:45:00 Edward present 09:33: [id number] 00 Safety fall risk Safety Resolve 2016-072017-05-29 Ayesha factor d 07-15 09:45:00 Edward present 09:33: [id number] 00 Safety risk for Safety Resolve 2016-072017-05-29 Ayesha hospitaliza d 07-15 09:45:00 Edward tion 09:33: [id number] 00 Neuro anxiety Neuro/Emot Resolve 2017-12-18 Ayesha present ion d 11-23 10:10:00 Edward 13:10: [id number] 00 Musculoskel transfer Musculoske Resolve 2017-12-18 Rossi etal assistance letal d 11-23 10:10:00 Guid[place] required 13:10: [id number] 00 Elimination diarrhea Eliminatio Resolve 2017-072018-07-23 Glenna n d 2-15 09:15:00 Rose Marie 17:26: [id number] 00 Medication potential Meds Resolve 2017-072018-07-23 Glenna clinically d 2-15 09:15:00 Rose Marie significant 17:26: [id number] medication 00 issue Medication oral med Meds Resolve 2017-072018-07-23 Glenna assistance d 2-15 09:15:00 Rose Marie required 17:26: [id number] 00 Medication injectable Meds Resolve 2017-072019-05-15 Glenna med d 2-15 10:00:00 Rose Marie assistance 17:26: [id number] required 00 Musculoskel transfer Musculoske Resolve 2017-072018-07-23 Glenna etal assistance letal d 2-15 09:15:00 Rose Marie required 17:26: [id number] 00 Musculoskel requires Musculoske Resolve 2017-072018-07-23 Glenna etal human letal d 2-15 09:15:00 Rose Marie assist to 17:26: [id number] leave home 00 Neuro anxiety Neuro/Emot Resolve 2017-072018-07-23 Ayesha present ion d 2-18 09:15:00 Edward 09:15: [id number] 00 Pain knowledge/s Pain Mgmt Resolve 2018-09-10 Edyta poole d 08-27 09:20:00 [place] deficit: pt 10:37: [id number] 00 Respiratory asthma Respirator Resolve 2018-09-17 Ayesha y d 09-10 09:09:00 Edward 09:20: [id number] 00 Neuro anxiety Neuro/Emot Resolve 2018-09-24 Ayesha present ion d 3- 08:49:00 Edward 09:09: [id number] 00 Medication oral med Meds Resolve 2018-09-24 Danni guzman d 09-18 08:49:00 [place] required 10:00: 00 Safety safety Safety Resolve 2019-07-08 Ayesha hazards d 10-08 09:05:00 Edward present 08:55: [id number] 00 Safety fall risk Safety Resolve 2019-0 2019-07-15 Ayesha factor d 10-08 08:32:00 Edward present 08:55: [id number] 00 Safety risk for Safety Active 2018- Ayesha sidhuiza 10-08 Edward tion 08:55: [id number] 00 Medication injectable Meds Unknown 2018- Ayesha med 10-08 Edward assistance 08:55: [id number] required 00 Neuro anxiety Neuro/Emot Resolve 2018-2018-12-05 Ayesha roman ion d 11-19 09:00:00 Edward 08:58: [id number] 00 Medication oral med Meds Resolve 2018-12-31 Danni assistance d 12-05 08:35:00 [place] required 09:00: 00 Cardio hypertensio Cardiovasc Resolve 2018-2019-02-11 Ayesha mane 01-15 11:00:00 Edward 07:30: [id number] 00 Medication oral med Meds Resolve 2019-02-11 Ayesha assistance d 01-15 11:00:00 Edward required 07:30: [id number] 00 Medication injectable Meds Unknown Ayesha med 01-15 Edward assistance 07:30: [id number] required 00 Elimination urinary Eliminatio Resolve 2019-02-24 Glenna incontinenc n d 8-20 14:30:00 Mitchell e 07:35: [employer] 00 [id number] Elimination urinary Eliminatio Resolve 2018-072019-06-10 Glenna incontinenc n d 0-22 09:30:00 Mitchell e 07:32: [employer] 00 [id number] Sensory impaired Sensory Resolve 2018-072019-06-10 Ayesha hearing d 1-14 09:30:00 Edward 10:00: [id number] 00 Medication oral med Meds Resolve 2018-072019-05-15 Ayesha assistance d 14 10:00:00 Edward required 10:00: [id number] 00 Safety safety Safety Resolve 2019-07-15 Ayesha hazards d 07-15 08:32:00 Edward present 08:32: [id number] 00 Allergies, Adverse Reactions, Alerts Allergy Allergy [...] Observation Time Observation Value Comments SYSTOLIC mm[Hg] 2019-08-12 18:10:20 144 mm[Hg] mm[Hg] Method: Sit SYSTOLIC mm[Hg] 2019-07-15 18:09:52 156 mm[Hg] mm[Hg] Method: Stand DIASTOLIC mm[Hg] 2019-08-12 18:10:20 76 mm[Hg] mm[Hg] Method: Sit DIASTOLIC mm[Hg] 2019-07-15 18:09:52 84 mm[Hg] mm[Hg] Method: Stand PULSE 2019-08-12 18:10:20 83 /min /min RESP RATE 2019-08-12 18:10:20 16 /min /min TEMP 2019-08-12 18:10:20 97.5 [degF] Procedures This patient has no known procedures. Results This patient has no known results.
--- OUTSIDE RECORDS SUMMARY | 2019-09-01 15:43 | XMS REPORT ---
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, disorder, 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, recurrent, unspecified unspecified Migraine Migraine Diagnosis Active 2014-07 Ayesha with aura, with aura, 0-01 Edward not not [id number] intractable intractable , w/o , w/o status status migrainosus migrainosus Other long Other long Diagnosis Active 2014-07 Ayesha term term 0-01 Edward (current) (current) [id number] drug drug therapy therapy Sciatica, Sciatica, Diagnosis Active 2014-07 Ayesha unspecified unspecified 0-01 Edward side side [id number] Other long Other long Diagnosis Active Ayesha term term Edward (current) (current) [id number] drug drug therapy therapy Other symp Other symp Diagnosis Active Ayesha and signs w and signs w Edward cogn fnctns cogn fnctns [id number] fol unsp fol unsp cerebvasc cerebvasc dis dis Pain frequent Pain Mgmt Resolve 2018-09-10 Brittani pain d 08-06 09:20:00 Roney 08:40: [id number] 00 Pain knowledge/s Pain Mgmt Resolve 2015-11-23 Brittani kill d 08-06 11:52:00 Roney deficit: pt 08:40: [id number] 00 Sensory impaired Sensory Resolve 2015-12-06 Brittani hearing d 2- 08:44:00 Roney 08:40: [id number] 00 Nutrition knowledge/s Nutrition Resolve 2015-11-23 Brittani kill d 2- 11:52:00 Sim deficit: pt 08:40: [id number] 00 Safety fall risk Safety Resolve 2015-08-06 Brittani factor d 2- 08:40:00 Sim present 08:40: [id number] 00 Safety risk for Safety Resolve 2015-10-05 Brittani hospitaliza d 2- 13:00:00 Sim tion 08:40: [id number] 00 Safety safety Safety Resolve 2015-08-06 Brittani hazards d 08-06 08:40:00 Sim present 08:40: [id number] 00 Medication injectable Meds Resolve 2016-11-28 Brittani med d 2 09:00:00 Sim assistance 08:40: [id number] required 00 Medication knowledge/s Meds Resolve 2015-10-05 Brittani kill d 2- 13:00:00 Sim deficit: pt 08:40: [id number] 00 Medication oral med Meds Resolve 2015-10-05 Brittani assistance d 2 13:00:00 Sim required 08:40: [id number] 00 Diagnoses knowledge/s Diagnoses Resolve 2016-12-26 Brittani kill d 2 09:15:00 Sim deficit: pt 08:40: [id number] 00 Integument other wound Integument Resolve 2015-10-05 Jacquelin present d 3- 13:00:00 Adelso 10:30: [id number] 00 Respiratory lung sounds Respirator Resolve 2015-10-05 Brittani deficit y d - 13:00:00 Sim 13:00: [id number] 00 Neuro anxiety Neuro/Emot Resolve 2015-12-06 Brittani present ion d 10-04 08:44:00 Roney 13:00: [id number] 00 Safety fall risk Safety Resolve 2016-04-04 Brittani factor d - 10:04:00 Sim present 13:00: [id number] 00 Elimination urinary Eliminatio Resolve 2015-11-23 Jacquelin frequency n d 10-11 11:52:00 Adelso 11:00: [id number] 00 Safety risk for Safety Resolve 2016-04-04 Brittani sidhuiza d 11-01 10:04:00 Roney tion 17:19: [id number] 00 Respiratory lung sounds Respirator Resolve 2015-12-06 Emmie deficit y d 11-22 08:44:00 Jerram [employer] 11:52: [id number] 00 Respiratory dyspnea Respirator Resolve 2016-09-26 Emmie present y d 11-22 09:00:00 Jerram [employer] DIRECT[employer] 11:52: [id number] 00 Nutrition knowledge/s Nutrition Resolve 2015-12-06 Emmie kill d 11-29 08:44:00 Jerram [employer] deficit: pt 10:06: [id number] 00 Integument other wound Integument Resolve 2015-12-06 Brittani present d 12-05 08:44:00 Roney 08:44: [id number] 00 Medication knowledge/s Meds Resolve 2015-12-06 Brittani kill d 12-05 08:44:00 Roney deficit: pt 08:44: [id number] 00 Respiratory lung sounds Respirator Active Emmie deficit y 12-06 Jerram [employer] DIRECT[employer] 09:00: [id number] Test/Treatm tests Test/Injec Resolve 2016-07-25 Emmie ent ordered t/Willy d 12-21 12:00:00 Jerram [employer] DIRECTOR [id number] Medication oral med Meds Unknown Emmie assistance 01-10 Jerram [employer] DIRECTOR required 09:00: [id number] 00 Integument other wound Integument Resolve 2016-02-01 Brittani present d 01-31 10:10:00 Roney 10:10: [id number] 00 Elimination urinary Eliminatio Resolve 2016-02-01 Brittani incontinenc n d 01-31 10:10:00 Roney deluca 10:10: [id number] 00 Elimination urinary Eliminatio Resolve 2016-04-04 Emmie frequency n d 02-07 10:04:00 Jerram [employer] DIRECT[employer] 09:15: [id number] 00 Elimination urinary Eliminatio Resolve 2016-04-04 Brittani incontinenc n d 03-28 10:04:00 Roney e 09:30: [id number] 00 Integument other wound Integument Resolve 2015-072016-04-04 Brittani present d 0 10:04:00 Roney 10:04: [id number] 00 Integument other wound Integument Resolve 2015-072016-06-01 Brittani present d 08-02 09:58:00 Roney 09:58: [id number] 00 Elimination urinary Eliminatio Resolve 2015-072016-07-25 Ayesha incontinenc n d 2 12:00:00 Edward e 09:15: [id number] 00 Elimination diarrhea Eliminatio Resolve 2015-072016-07-25 Ayesha n d 08-28 12:00:00 Edward 09:15: [id number] 00 Elimination nausea/vomi Eliminatio Resolve 2015-072016-07-25 Ayesha ting n d 08-28 12:00:00 Edward 09:15: [id number] 00 Elimination knowledge/s Eliminatio Resolve 2015-072016-07-25 Ayesha kill n d 08-28 12:00:00 Edward deficit: pt 09:15: [id number] 00 Safety safety Safety Resolve 2016-08-01 Ayesha hazards d 07-25 10:00:00 Edward present 12:00: [id number] 00 Safety fall risk Safety Resolve 2016-08-01 Ayesha factor d 07-25 10:00:00 Edward present 12:00: [id number] 00 Safety risk for Safety Resolve 2016-08-01 Ayesha hospitaliza d 07-25 10:00:00 Edward tion 12:00: [id number] 00 Integument other wound Integument Resolve 2016-08-29 Ayesha present d 08-01 08:50:00 Edward 10:00: [id number] 00 Neuro anxiety Neuro/Emot Resolve 2016-08-29 Ayesha present ion d 08-01 08:50:00 Edward 10:00: [id number] 00 Neuro behavior Neuro/Emot Resolve 2016-08-29 Ayesha problems ion d 08-01 08:50:00 Edward 10:00: [id number] 00 Safety risk for Safety Resolve 2016-08-29 Edyta hospitaliza d 08-08 08:50:00 [place] tion 08:10: [id number] 00 Neuro memory Neuro/Emot Resolve 2016-08-29 Ayesha deficit ion d 08-29 08:50:00 Edward needing 08:50: [id number] supervision 00 Safety safety Safety Resolve 2016-08-29 Ayesha hazards d 08-29 08:50:00 Edward present 08:50: [id number] 00 Safety risk for Safety Resolve 2016-09-29 Edyta hospitaliza d 09-05 09:00:00 [place] tion 08:30: [id number] 00 Integument other wound Integument Resolve 2016-09-29 Ayesha present d 09-29 09:00:00 Edward 09:00: [id number] 00 Safety safety Safety Resolve 2016-09-29 Ayesha hazards d 09-29 09:00:00 Edward present 09:00: [id number] 00 Safety fall risk Safety Resolve 2016-09-29 Ayesha factor d 09-29 09:00:00 Edward present 09:00: [id number] 00 Medication oral med Meds Unknown Ayesha assistance 09-29 Edward required 09:00: [id number] 00 Neuro anxiety Neuro/Emot Resolve 2016-10-31 Ayesha present ion d 10-02 09:15:00 Edward 09:00: [id number] 00 Neuro impaired Neuro/Emot Resolve 2016-10-31 Ayesha decision-ma ion d 10-02 09:15:00 Edward larry 09:00: [id number] 00 Neuro memory Neuro/Emot Resolve 2016-10-31 Ayesha deficit ion d 10-02 09:15:00 Edward needing 09:00: [id number] supervision 00 Safety risk for Safety Resolve 2016-10-31 Ayesha hospitaliza d 10-02 09:15:00 Edward tion 09:00: [id number] 00 Safety safety Safety Resolve 2016-10-31 Ayesha hazards d 10-31 09:15:00 Edward present 09:15: [id number] 00 Safety risk for Safety Resolve 2017-02-27 Edyta hospitaliza d 11-07 09:20:00 [place] tion 08:30: [id number] 00 Integument other wound Integument Resolve 2017-01-29 Ayesha present d 11-28 09:00:00 Edward 09:00: [id number] 00 Safety safety Safety Resolve 2017-02-27 Ayesha hazards d 11-28 09:20:00 Edward present 09:00: [id number] 00 Safety fall risk Safety Resolve 2017-02-27 Ayesha factor d 11-28 09:20:00 Edward present 09:00: [id number] 00 Medication oral med Meds Unknown Ayesha assistance 11-28 Edward required 09:00: [id number] 00 Neuro anxiety Neuro/Emot Resolve 2017-01-23 Ayesha present ion d 12-26 11:00:00 Edward 09:15: [id number] 00 Integument other wound Integument Active Ayesha present 03-27 Edward 09:30: [id number] 00 Neuro anxiety Neuro/Emot Resolve 2016-072017-05-29 Ayesha present ion d 07-15 09:45:00 Edward 09:33: [id number] 00 Safety safety Safety Resolve 2016-072017-05-29 Ayesha hazards d 07-15 09:45:00 Edward present 09:33: [id number] 00 Safety fall risk Safety Resolve 2016-072017-05-29 Ayesha factor d 07-15 09:45:00 Edward present 09:33: [id number] 00 Safety risk for Safety Resolve 2016-072017-05-29 Ayesha hospitaliza d 07-15 09:45:00 Edward tion 09:33: [id number] 00 Neuro anxiety Neuro/Emot Resolve 2017-12-18 Ayesha present ion d 11-23 10:10:00 Edward 13:10: [id number] 00 Musculoskel transfer Musculoske Resolve 2017-12-18 Rossi etal assistance letal d 11-23 10:10:00 Guidelli required 13:10: [id number] 00 Elimination diarrhea Eliminatio Resolve 2017-072018-07-23 Glenna n d 2-15 09:15:00 Rose Marie 17:26: [id number] 00 Medication potential Meds Resolve 2017-072018-07-23 Glenna clinically d 2-15 09:15:00 Rose Marie significant 17:26: [id number] medication 00 issue Medication oral med Meds Resolve 2017-072018-07-23 Glenna assistance d 2-15 09:15:00 Rose Marie required 17:26: [id number] 00 Medication injectable Meds Active 2017-07 Glenna med 2- Rose Marie assistance 17:26: [id number] required 00 Musculoskel transfer Musculoske Resolve 2017-072018-07-23 Glenna etal assistance letal d 2- 09:15:00 Rose Marie required 17:26: [id number] 00 Musculoskel requires Musculoske Resolve 2017-072018-07-23 Glenna etal human letal d 2- 09:15:00 Rose Marie assist to 17:26: [id number] leave home 00 Neuro anxiety Neuro/Emot Resolve 2017-072018-07-23 Ayesha present ion d 2-18 09:15:00 Edward 09:15: [id number] 00 Pain knowledge/s Pain Mgmt Resolve 2018-09-10 Edyta poole d 08-27 09:20:00 [place] deficit: pt 10:37: [id number] 00 Respiratory asthma Respirator Resolve 2018-09-17 Ayesha y d 3 09:09:00 Edward 09:20: [id number] 00 Neuro anxiety Neuro/Emot Resolve 2018-09-24 Ayesha present ion d 3 08:49:00 Edward 09:09: [id number] 00 Medication oral med Meds Resolve 2018-09-24 Danni assistance d 09-18 08:49:00 [place]le[place] required 10:00: 00 Safety safety Safety Resolve 2019-07-08 Ayesha hazards d 10-08 09:05:00 Edward present 08:55: [id number] 00 Safety fall risk Safety Resolve 2019-07-15 Ayesha factor d 10-08 08:32:00 Edward present 08:55: [id number] 00 Safety risk for Safety Active Ayesha hospitaliza 10-08 Edward tion 08:55: [id number] 00 Medication injectable Meds Unknown Ayesha med 10-08 Edward assistance 08:55: [id number] required 00 Neuro anxiety Neuro/Emot Resolve 2018-2018-12-05 Ayesha abel ion d 11-19 09:00:00 Edward 08:58: [id number] 00 Medication oral med Meds Resolve 2018-12-31 Danni assistance d 12-05 08:35:00 Valle[place] required 09:00: 00 Cardio hypertensio Cardiovasc Resolve 2018-2019-02-11 Ayesha alejandrina abbottar d 01-15 11:00:00 Edward 07:30: [id number] 00 Medication oral med Meds Resolve 2019-02-11 Ayesha assistance d 01-15 11:00:00 Edward required 07:30: [id number] 00 Medication injectable Meds Unknown Ayesha med 01-15 Edward assistance 07:30: [id number] required 00 Elimination urinary Eliminatio Resolve 2019-02-24 Glenna incontinenc n d 8-20 14:30:00 Mitchell e 07:35: [employer] 00 [id number] Elimination urinary Eliminatio Resolve 2018-072019-06-10 Glenna incontinenc n d 0-22 09:30:00 Mitchell e 07:32: [employer] 00 [id number] Sensory impaired Sensory Resolve 2018-072019-06-10 Ayesha hearing d 1-14 09:30:00 Edward 10:00: [id number] 00 Medication oral med Meds Resolve 2018-072019-05-15 Ayesha assistance d 07-15 10:00:00 Edward required 10:00: [id number] 00 Safety safety Safety Resolve 2019-07-15 Ayesha hazards d 07-15 08:32:00 Edward present 08:32: [id number] 00 Allergies, Adverse Reactions, Alerts Allergy Allergy [...] Breiman .2% Unknown one one 07-12 Henrry MATHAIS valerate valerate 0.2 % 0.2 % topical [...] 500mg Unknown 500 mg 500 mg 01-17 Henrry MATHIAS capsule capsule ezetimibe ezetimibe No Breiman 10mg [...] Observation Time Observation Value Comments SYSTOLIC mm[Hg] 2019-07-22 18:09:59 130 mm[Hg] mm[Hg] Method: Sit SYSTOLIC mm[Hg] 2019-07-15 18:09:52 156 mm[Hg] mm[Hg] Method: Stand DIASTOLIC mm[Hg] 2019-07-22 18:09:59 68 mm[Hg] mm[Hg] Method: Sit DIASTOLIC mm[Hg] 2019-07-15 18:09:52 84 mm[Hg] mm[Hg] Method: Stand PULSE 2019-07-22 18:09:59 64 /min /min RESP RATE 2019-07-22 18:09:59 16 /min /min TEMP 2019-07-22 18:09:59 98.2 [degF] Procedures This patient has no known procedures. Results This patient has no known results.
--- OUTSIDE RECORDS SUMMARY | 2019-09-01 15:43 | XMS REPORT ---
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, disorder, 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, recurrent, unspecified unspecified Migraine Migraine Diagnosis Active 2014-07 Ayesha with aura, with aura, 0-01 Edward not not [id number] intractable intractable , w/o , w/o status status migrainosus migrainosus Other long Other long Diagnosis Active 2014-07 Ayesha term term 0-01 Edward (current) (current) [id number] drug drug therapy therapy Sciatica, Sciatica, Diagnosis Active 2014-07 Ayesah unspecified unspecified 0-01 Edward side side [id number] Other long Other long Diagnosis Active Ayesha term term Edward (current) (current) [id number] drug drug therapy therapy Other symp Other symp Diagnosis Active Ayesha and signs w and signs w Edward cogn fnctns cogn fnctns [id number] fol unsp fol unsp cerebvasc cerebvasc dis dis Pain frequent Pain Mgmt Resolve 2018-09-10 Brittani pain d 08-06 09:20:00 Roney 08:40: [id number] 00 Pain knowledge/s Pain Mgmt Resolve 2015-11-23 Brittani kill d 08-06 11:52:00 Roney deficit: pt 08:40: [id number] 00 Sensory impaired Sensory Resolve 2015-12-06 Brittani hearing d 2- 08:44:00 Roney 08:40: [id number] 00 Nutrition knowledge/s Nutrition Resolve 2015-11-23 Brittani kill d 2- 11:52:00 Sim deficit: pt 08:40: [id number] 00 Safety fall risk Safety Resolve 2015-08-06 Brittani factor d 2- 08:40:00 Sim present 08:40: [id number] 00 Safety risk for Safety Resolve 2015-10-05 Brittani hospitaliza d 2- 13:00:00 Sim tion 08:40: [id number] 00 Safety safety Safety Resolve 2015-08-06 Brittani hazards d 08-06 08:40:00 Sim present 08:40: [id number] 00 Medication injectable Meds Resolve 2016-11-28 Brittani med d 2 09:00:00 Sim assistance 08:40: [id number] required 00 Medication knowledge/s Meds Resolve 2015-10-05 Brittani kill d 2- 13:00:00 Sim deficit: pt 08:40: [id number] 00 Medication oral med Meds Resolve 2015-10-05 Brittani assistance d 2 13:00:00 Sim required 08:40: [id number] 00 Diagnoses knowledge/s Diagnoses Resolve 2016-12-26 Brittani kill d 2 09:15:00 Sim deficit: pt 08:40: [id number] 00 Integument other wound Integument Resolve 2015-10-05 Jacquelin present d 3- 13:00:00 Adelso 10:30: [id number] 00 Respiratory lung sounds Respirator Resolve 2015-10-05 Brittani deficit y d - 13:00:00 Sim 13:00: [id number] 00 Neuro anxiety Neuro/Emot Resolve 2015-12-06 Brittani present ion d 10-04 08:44:00 Roney 13:00: [id number] 00 Safety fall risk Safety Resolve 2016-04-04 Brittani factor d - 10:04:00 Sim present 13:00: [id number] 00 Elimination urinary Eliminatio Resolve 2015-11-23 Jacquelin frequency n d 10-11 11:52:00 Adelso 11:00: [id number] 00 Safety risk for Safety Resolve 2016-04-04 Brittani sidhuiza d 11-01 10:04:00 Roney tion 17:19: [id number] 00 Respiratory lung sounds Respirator Resolve 2015-12-06 Emmie deficit y d 11-22 08:44:00 Jerram [employer] 11:52: [id number] 00 Respiratory dyspnea Respirator Resolve 2016-09-26 Emmie present y d 11-22 09:00:00 Jerram [employer] 11:52: [id number] 00 Nutrition knowledge/s Nutrition Resolve 2015-12-06 Emmie kill d 11-29 08:44:00 Jerram [employer] deficit: pt 10:06: [id number] 00 Integument other wound Integument Resolve 2015-12-06 Brittani present d 12-05 08:44:00 Roney 08:44: [id number] 00 Medication knowledge/s Meds Resolve 2015-12-06 Brittani kill d 12-05 08:44:00 Roney deficit: pt 08:44: [id number] 00 Respiratory lung sounds Respirator Active Emmie deficit y 12-06 Jerram [employer] 09:00: [id number] Test/Treatm tests Test/Injec Resolve 2016-07-25 Emmie ent ordered t/Willy d 12-21 12:00:00 Jerram [employer] [id number] Medication oral med Meds Unknown Emmie assistance 01-10 Jerram [employer] required 09:00: [id number] 00 Integument other wound Integument Resolve 2016-02-01 Brittani present d 01-31 10:10:00 Roney 10:10: [id number] 00 Elimination urinary Eliminatio Resolve 2016-02-01 Brittani incontinenc n d 01-31 10:10:00 Roney deluca 10:10: [id number] 00 Elimination urinary Eliminatio Resolve 2016-04-04 Emmie frequency n d 02-07 10:04:00 Jerram [employer] 09:15: [id number] 00 Elimination urinary Eliminatio Resolve 2016-04-04 Brittani incontinenc n d 03-28 10:04:00 Roney e 09:30: [id number] 00 Integument other wound Integument Resolve 2015-072016-04-04 Brittani present d 0 10:04:00 Roney 10:04: [id number] 00 Integument other wound Integument Resolve 2015-072016-06-01 Brittani present d 08-02 09:58:00 Roney 09:58: [id number] 00 Elimination urinary Eliminatio Resolve 2015-072016-07-25 Ayesha incontinenc n d 2 12:00:00 Edward e 09:15: [id number] 00 Elimination diarrhea Eliminatio Resolve 2015-072016-07-25 Ayesha n d 08-28 12:00:00 Edward 09:15: [id number] 00 Elimination nausea/vomi Eliminatio Resolve 2015-072016-07-25 Ayesha ting n d 08-28 12:00:00 Edward 09:15: [id number] 00 Elimination knowledge/s Eliminatio Resolve 2015-072016-07-25 Ayesha kill n d 08-28 12:00:00 Edward deficit: pt 09:15: [id number] 00 Safety safety Safety Resolve 2016-08-01 Ayesha hazards d 07-25 10:00:00 Edward present 12:00: [id number] 00 Safety fall risk Safety Resolve 2016-08-01 Ayesha factor d 07-25 10:00:00 Edward present 12:00: [id number] 00 Safety risk for Safety Resolve 2016-08-01 Ayesha hospitaliza d 07-25 10:00:00 Edward tion 12:00: [id number] 00 Integument other wound Integument Resolve 2016-08-29 Ayesha present d 08-01 08:50:00 Edward 10:00: [id number] 00 Neuro anxiety Neuro/Emot Resolve 2016-08-29 Ayesha present ion d 08-01 08:50:00 Edward 10:00: [id number] 00 Neuro behavior Neuro/Emot Resolve 2016-08-29 Ayesha problems ion d 08-01 08:50:00 Edward 10:00: [id number] 00 Safety risk for Safety Resolve 2016-08-29 Edyta hospitaliza d 08-08 08:50:00 Check tion 08:10: [id number] 00 Neuro memory Neuro/Emot Resolve 2016-08-29 Ayesha deficit ion d 08-29 08:50:00 Edward needing 08:50: [id number] supervision 00 Safety safety Safety Resolve 2016-08-29 Ayesha hazards d 08-29 08:50:00 Edward present 08:50: [id number] 00 Safety risk for Safety Resolve 2016-09-29 Edyta hospitaliza d 09-05 09:00:00 Check tion 08:30: [id number] 00 Integument other wound Integument Resolve 2016-09-29 Ayesha present d 09-29 09:00:00 Edward 09:00: [id number] 00 Safety safety Safety Resolve 2016-09-29 Ayesha hazards d 09-29 09:00:00 Edward present 09:00: [id number] 00 Safety fall risk Safety Resolve 2016-09-29 Ayesha factor d 09-29 09:00:00 Edward present 09:00: [id number] 00 Medication oral med Meds Unknown Ayesha assistance 09-29 Edward required 09:00: [id number] 00 Neuro anxiety Neuro/Emot Resolve 2016-10-31 Ayesha present ion d 10-02 09:15:00 Edward 09:00: [id number] 00 Neuro impaired Neuro/Emot Resolve 2016-10-31 Ayesha decision-ma ion d 10-02 09:15:00 Edward larry 09:00: [id number] 00 Neuro memory Neuro/Emot Resolve 2016-10-31 Ayesha deficit ion d 10-02 09:15:00 Edward needing 09:00: [id number] supervision 00 Safety risk for Safety Resolve 2016-10-31 Ayesha hospitaliza d 10-02 09:15:00 Edward tion 09:00: [id number] 00 Safety safety Safety Resolve 2016-10-31 Ayesha hazards d 10-31 09:15:00 Edward present 09:15: [id number] 00 Safety risk for Safety Resolve 2017-02-27 Edyta hospitaliza d 11-07 09:20:00 Check tion 08:30: [id number] 00 Integument other wound Integument Resolve 2017-01-29 Ayesha present d 11-28 09:00:00 Edward 09:00: [id number] 00 Safety safety Safety Resolve 2017-02-27 Ayesha hazards d 11-28 09:20:00 Edward present 09:00: [id number] 00 Safety fall risk Safety Resolve 2017-02-27 Ayesha factor d 11-28 09:20:00 Edward present 09:00: [id number] 00 Medication oral med Meds Unknown Ayesha assistance 11-28 Edward required 09:00: [id number] 00 Neuro anxiety Neuro/Emot Resolve 2017-01-23 Ayesha present ion d 12-26 11:00:00 Edward 09:15: [id number] 00 Integument other wound Integument Active Ayesha present 03-27 Edward 09:30: [id number] 00 Neuro anxiety Neuro/Emot Resolve 2016-072017-05-29 Ayesha present ion d 07-15 09:45:00 Edward 09:33: [id number] 00 Safety safety Safety Resolve 2016-072017-05-29 Ayesha hazards d 07-15 09:45:00 Edward present 09:33: [id number] 00 Safety fall risk Safety Resolve 2016-072017-05-29 Ayesha factor d 07-15 09:45:00 Edward present 09:33: [id number] 00 Safety risk for Safety Resolve 2016-072017-05-29 Ayesha hospitaliza d 07-15 09:45:00 Edward tion 09:33: [id number] 00 Neuro anxiety Neuro/Emot Resolve 2017-12-18 Ayesha present ion d 11-23 10:10:00 Edward 13:10: [id number] 00 Musculoskel transfer Musculoske Resolve 2017-12-18 Rossi etal assistance letal d 11-23 10:10:00 Guidelli required 13:10: [id number] 00 Elimination diarrhea Eliminatio Resolve 2017-072018-07-23 Glenna n d 2-15 09:15:00 Rose Marie 17:26: [id number] 00 Medication potential Meds Resolve 2017-072018-07-23 Glenna clinically d 2-15 09:15:00 Rose Marie significant 17:26: [id number] medication 00 issue Medication oral med Meds Resolve 2017-072018-07-23 Glenna assistance d 2-15 09:15:00 Rose Marie required 17:26: [id number] 00 Medication injectable Meds Active 2017-07 Glenna med 2- Rose Marie assistance 17:26: [id number] required 00 Musculoskel transfer Musculoske Resolve 2017-072018-07-23 Glenna etal assistance letal d 2- 09:15:00 Rose Marie required 17:26: [id number] 00 Musculoskel requires Musculoske Resolve 2017-072018-07-23 Glenna etal human letal d 2- 09:15:00 Rose Marie assist to 17:26: [id number] leave home 00 Neuro anxiety Neuro/Emot Resolve 2017-072018-07-23 Ayesha present ion d 2-18 09:15:00 Edward 09:15: [id number] 00 Pain knowledge/s Pain Mgmt Resolve 2018-09-10 Edyta poole d 08-27 09:20:00 Check deficit: pt 10:37: [id number] 00 Respiratory asthma Respirator Resolve 2018-09-17 Ayesha y d 3 09:09:00 Edward 09:20: [id number] 00 Neuro anxiety Neuro/Emot Resolve 2018-09-24 Ayesha present ion d 3 08:49:00 Edward 09:09: [id number] 00 Medication oral med Meds Resolve 2018-09-24 Danni assistance d 09-18 08:49:00 Vallely required 10:00: 00 Safety safety Safety Resolve 2019-07-08 Ayesha hazards d 10-08 09:05:00 Edward present 08:55: [id number] 00 Safety fall risk Safety Resolve 2019-07-15 Ayesha factor d 10-08 08:32:00 Edward present 08:55: [id number] 00 Safety risk for Safety Active Ayesha hospitaliza 10-08 Edward tion 08:55: [id number] 00 Medication injectable Meds Unknown Ayesha med 10-08 Edward assistance 08:55: [id number] required 00 Neuro anxiety Neuro/Emot Resolve 2018-2018-12-05 Ayesha abel ion d 11-19 09:00:00 Edward 08:58: [id number] 00 Medication oral med Meds Resolve 2018-12-31 Danni assistance d 12-05 08:35:00 Vallely required 09:00: 00 Cardio hypertensio Cardiovasc Resolve 2018-2019-02-11 Ayesha alejandrina abbottar d 01-15 11:00:00 Edward 07:30: [id number] 00 Medication oral med Meds Resolve 2019-02-11 Ayesha assistance d 01-15 11:00:00 Edward required 07:30: [id number] 00 Medication injectable Meds Unknown Ayesha med 01-15 Edward assistance 07:30: [id number] required 00 Elimination urinary Eliminatio Resolve 2019-02-24 Glenna incontinenc n d 8-20 14:30:00 Mitchell e 07:35: [employer] 00 [id number] Elimination urinary Eliminatio Resolve 2018-072019-06-10 Glenna incontinenc n d 0-22 09:30:00 Mitchell e 07:32: [employer] 00 [id number] Sensory impaired Sensory Resolve 2018-072019-06-10 Ayesha hearing d 1-14 09:30:00 Edward 10:00: [id number] 00 Medication oral med Meds Resolve 2018-072019-05-15 Ayesha assistance d 07-15 10:00:00 Edward required 10:00: [id number] 00 Safety safety Safety Resolve 2019-07-15 Ayesha hazards d 07-15 08:32:00 Edward present 08:32: [id number] 00 Allergies, Adverse Reactions, Alerts Allergy Allergy [...] Unknown 0.77 % 0.77 % 07-06 Henrry MTAHIAS topical topical cream cream cyclobenzap cyclobenzap 2016- [...]
--- OUTSIDE RECORDS SUMMARY | 2019-09-01 15:43 | XMS REPORT ---
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-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, disorder, [id number] recurrent, recurrent, unspecified unspecified Migraine Migraine Diagnosis Active 2014-07 Ayesha with aura, with aura, 0-01 Edward not not [id number] intractable intractable , w/o , w/o status status migrainosus migrainosus Other long Other long Diagnosis Active 2014-07 Ayesha term term 0-01 Edward (current) (current) [id number] drug drug therapy therapy Sciatica, Sciatica, Diagnosis Active 2014-07 Ayesha unspecified unspecified 0-01 Edward side side [id number] Other long Other long Diagnosis Active Ayesha term term Edward (current) (current) [id number] drug drug therapy therapy Other symp Other symp Diagnosis Active Ayesha and signs w and signs w Edward cogn fnctns cogn fnctns [id number] fol unsp fol unsp cerebvasc cerebvasc dis dis Pain frequent Pain Mgmt Resolve 2018-09-10 Brittani pain d 08-06 09:20:00 Roney 08:40: [id number] 00 Pain knowledge/s Pain Mgmt Resolve 2015-11-23 Brittani kill d 08-06 11:52:00 Roney deficit: pt 08:40: [id number] 00 Sensory impaired Sensory Resolve 2015-12-06 Brittani hearing d 2- 08:44:00 Roney 08:40: [id number] 00 Nutrition knowledge/s Nutrition Resolve 2015-11-23 Brittani kill d 2- 11:52:00 Sim deficit: pt 08:40: [id number] 00 Safety fall risk Safety Resolve 2015-08-06 Brittani factor d 2- 08:40:00 Sim present 08:40: [id number] 00 Safety risk for Safety Resolve 2015-10-05 Brittani hospitaliza d 2- 13:00:00 Sim tion 08:40: [id number] 00 Safety safety Safety Resolve 2015-08-06 Brittani hazards d 08-06 08:40:00 Sim present 08:40: [id number] 00 Medication injectable Meds Resolve 2016-11-28 Brittani med d 2 09:00:00 Sim assistance 08:40: [id number] required 00 Medication knowledge/s Meds Resolve 2015-10-05 Brittani kill d 2- 13:00:00 Sim deficit: pt 08:40: [id number] 00 Medication oral med Meds Resolve 2015-10-05 Brittani assistance d 2 13:00:00 Sim required 08:40: [id number] 00 Diagnoses knowledge/s Diagnoses Resolve 2016-12-26 Brittani kill d 2 09:15:00 Sim deficit: pt 08:40: [id number] 00 Integument other wound Integument Resolve 2015-10-05 Jacquelin present d 3- 13:00:00 Adelso 10:30: [id number] 00 Respiratory lung sounds Respirator Resolve 2015-10-05 Brittani deficit y d - 13:00:00 Sim 13:00: [id number] 00 Neuro anxiety Neuro/Emot Resolve 2015-12-06 Brittani present ion d 10-04 08:44:00 Roney 13:00: [id number] 00 Safety fall risk Safety Resolve 2016-04-04 Brittani factor d - 10:04:00 Sim present 13:00: [id number] 00 Elimination urinary Eliminatio Resolve 2015-11-23 Jacquelin frequency n d 10-11 11:52:00 Adelso 11:00: [id number] 00 Safety risk for Safety Resolve 2016-04-04 Brittani sidhuiza d 11-01 10:04:00 Roney tion 17:19: [id number] 00 Respiratory lung sounds Respirator Resolve 2015-12-06 Emmie deficit y d 11-22 08:44:00 Jerram [employer] WORKER 11:52: [id number] 00 Respiratory dyspnea Respirator Resolve 2016-09-26 Emmie present y d 11-22 09:00:00 Jerram ELEVATOR WORKER 11:52: [id number] 00 Nutrition knowledge/s Nutrition Resolve 2015-12-06 Emmie kill d 11-29 08:44:00 Jerram [employer] WORK[employer] deficit: pt 10:06: [id number] 00 Integument other wound Integument Resolve 2015-12-06 Brittani present d 12-05 08:44:00 Roney 08:44: [id number] 00 Medication knowledge/s Meds Resolve 2015-12-06 Brittani kill d 12-05 08:44:00 Roney deficit: pt 08:44: [id number] 00 Respiratory lung sounds Respirator Active Emmie deficit y 12-06 Jerram [employer]LEVATOR WORKER 09:00: [id number] Test/Treatm tests Test/Injec Resolve 2016-07-25 Emmie ent ordered t/Willy d 12-21 12:00:00 Jerram ELEVATOR WORKER [id number] Medication oral med Meds Unknown Emmie assistance 01-10 Jerram ELEVATOR WORKER required 09:00: [id number] 00 Integument other wound Integument Resolve 2016-02-01 Brittani present d 01-31 10:10:00 Roney 10:10: [id number] 00 Elimination urinary Eliminatio Resolve 2016-02-01 Brittani incontinenc n d 01-31 10:10:00 Roney deluca 10:10: [id number] 00 Elimination urinary Eliminatio Resolve 2016-04-04 Emmie frequency n d 02-07 10:04:00 Jerram ELEVATOR WORKER 09:15: [id number] 00 Elimination urinary Eliminatio Resolve 2016-04-04 Brittani incontinenc n d 03-28 10:04:00 Roney e 09:30: [id number] 00 Integument other wound Integument Resolve 2015-072016-04-04 Brittani present d 0 10:04:00 Roney 10:04: [id number] 00 Integument other wound Integument Resolve 2015-072016-06-01 Brittani present d 08-02 09:58:00 Roney 09:58: [id number] 00 Elimination urinary Eliminatio Resolve 2015-072016-07-25 Ayesha incontinenc n d 2 12:00:00 Edward e 09:15: [id number] 00 Elimination diarrhea Eliminatio Resolve 2015-072016-07-25 Ayesha n d 08-28 12:00:00 Edward 09:15: [id number] 00 Elimination nausea/vomi Eliminatio Resolve 2015-072016-07-25 Ayesha ting n d 08-28 12:00:00 Edward 09:15: [id number] 00 Elimination knowledge/s Eliminatio Resolve 2015-072016-07-25 Ayesha kill n d 08-28 12:00:00 Edward deficit: pt 09:15: [id number] 00 Safety safety Safety Resolve 2016-08-01 Ayesha hazards d 07-25 10:00:00 Edward present 12:00: [id number] 00 Safety fall risk Safety Resolve 2016-08-01 Ayesha factor d 07-25 10:00:00 Edward present 12:00: [id number] 00 Safety risk for Safety Resolve 2016-08-01 Ayesha hospitaliza d 07-25 10:00:00 Edward tion 12:00: [id number] 00 Integument other wound Integument Resolve 2016-08-29 Ayesha present d 08-01 08:50:00 Edward 10:00: [id number] 00 Neuro anxiety Neuro/Emot Resolve 2016-08-29 Ayesha present ion d 08-01 08:50:00 Edward 10:00: [id number] 00 Neuro behavior Neuro/Emot Resolve 2016-08-29 Ayesha problems ion d 08-01 08:50:00 Edward 10:00: [id number] 00 Safety risk for Safety Resolve 2016-08-29 Edyta hospitaliza d 08-08 08:50:00 Harleigh tion 08:10: [id number] 00 Neuro memory Neuro/Emot Resolve 2016-08-29 Ayesha deficit ion d 08-29 08:50:00 Edward needing 08:50: [id number] supervision 00 Safety safety Safety Resolve 2016-08-29 Ayesha hazards d 08-29 08:50:00 Edward present 08:50: [id number] 00 Safety risk for Safety Resolve 2016-09-29 Edyta hospitaliza d 09-05 09:00:00 Harleigh tion 08:30: [id number] 00 Integument other wound Integument Resolve 2016-09-29 Ayesha present d 09-29 09:00:00 Edward 09:00: [id number] 00 Safety safety Safety Resolve 2016-09-29 Ayesha hazards d 09-29 09:00:00 Edward present 09:00: [id number] 00 Safety fall risk Safety Resolve 2016-09-29 Ayesha factor d 09-29 09:00:00 Edward present 09:00: [id number] 00 Medication oral med Meds Unknown Ayesha assistance 09-29 Edward required 09:00: [id number] 00 Neuro anxiety Neuro/Emot Resolve 2016-10-31 Ayesha present ion d 10-02 09:15:00 Edward 09:00: [id number] 00 Neuro impaired Neuro/Emot Resolve 2016-10-31 Ayesha decision-ma ion d 10-02 09:15:00 Edward larry 09:00: [id number] 00 Neuro memory Neuro/Emot Resolve 2016-10-31 Ayesha deficit ion d 10-02 09:15:00 Edward needing 09:00: [id number] supervision 00 Safety risk for Safety Resolve 2016-10-31 Ayesha hospitaliza d 10-02 09:15:00 Edward tion 09:00: [id number] 00 Safety safety Safety Resolve 2016-10-31 Ayesha hazards d 10-31 09:15:00 Edward present 09:15: [id number] 00 Safety risk for Safety Resolve 2017-02-27 Edyta hospitaliza d 11-07 09:20:00 Harleigh tion 08:30: [id number] 00 Integument other wound Integument Resolve 2017-01-29 Ayesha present d 11-28 09:00:00 Edward 09:00: [id number] 00 Safety safety Safety Resolve 2017-02-27 Ayesha hazards d 11-28 09:20:00 Edward present 09:00: [id number] 00 Safety fall risk Safety Resolve 2017-02-27 Ayesha factor d 11-28 09:20:00 Edward present 09:00: [id number] 00 Medication oral med Meds Unknown Ayesha assistance 11-28 Edward required 09:00: [id number] 00 Neuro anxiety Neuro/Emot Resolve 2017-01-23 Ayesha present ion d 12-26 11:00:00 Edward 09:15: [id number] 00 Integument other wound Integument Active Ayesha present 03-27 Edward 09:30: [id number] 00 Neuro anxiety Neuro/Emot Resolve 2016-072017-05-29 Ayesha present ion d 07-15 09:45:00 Edward 09:33: [id number] 00 Safety safety Safety Resolve 2016-072017-05-29 Ayesha hazards d 07-15 09:45:00 Edward present 09:33: [id number] 00 Safety fall risk Safety Resolve 2016-072017-05-29 Ayesha factor d 07-15 09:45:00 Edward present 09:33: [id number] 00 Safety risk for Safety Resolve 2016-072017-05-29 Ayesha hospitaliza d 07-15 09:45:00 Edward tion 09:33: [id number] 00 Neuro anxiety Neuro/Emot Resolve 2017-12-18 Ayesha present ion d 11-23 10:10:00 Edward 13:10: [id number] 00 Musculoskel transfer Musculoske Resolve 2017-12-18 Rossi etal assistance letal d 11-23 10:10:00 Guidelli required 13:10: [id number] 00 Elimination diarrhea Eliminatio Resolve 2017-072018-07-23 Glenna n d 2-15 09:15:00 Rose Marie 17:26: [id number] 00 Medication potential Meds Resolve 2017-072018-07-23 Glenna clinically d 2-15 09:15:00 Rose Marie significant 17:26: [id number] medication 00 issue Medication oral med Meds Resolve 2017-072018-07-23 Glenna assistance d 2-15 09:15:00 Rose Marie required 17:26: [id number] 00 Medication injectable Meds Resolve 2017-072019-05-15 Glenna med d 2-15 10:00:00 Rose Marie assistance 17:26: [id number] required 00 Musculoskel transfer Musculoske Resolve 2017-072018-07-23 Glenna etal assistance letal d 2-15 09:15:00 Rose Marie required 17:26: [id number] 00 Musculoskel requires Musculoske Resolve 2017-072018-07-23 Glenna etal human letal d 2-15 09:15:00 Rose Marie assist to 17:26: [id number] leave home 00 Neuro anxiety Neuro/Emot Resolve 2017-072018-07-23 Ayesha present ion d 2-18 09:15:00 Edward 09:15: [id number] 00 Pain knowledge/s Pain Mgmt Resolve 2018-09-10 Edyta poole d 08-27 09:20:00 Harleigh deficit: pt 10:37: [id number] 00 Respiratory asthma Respirator Resolve 2018-09-17 Ayesha y d 09-10 09:09:00 Edward 09:20: [id number] 00 Neuro anxiety Neuro/Emot Resolve 2018-09-24 Ayesha present ion d 3- 08:49:00 Edward 09:09: [id number] 00 Medication oral med Meds Resolve 2018-09-24 Danni guzman d 09-18 08:49:00 Vallely required 10:00: 00 Safety safety Safety Resolve 2019-07-08 Ayesha hazards d 10-08 09:05:00 Edward present 08:55: [id number] 00 Safety fall risk Safety Resolve 2019-0 2019-07-15 Ayesha factor d 10-08 08:32:00 Edward present 08:55: [id number] 00 Safety risk for Safety Active 2018- Ayesha sidhuiza 10-08 Edward tion 08:55: [id number] 00 Medication injectable Meds Unknown 2018- Ayesha med 10-08 Edward assistance 08:55: [id number] required 00 Neuro anxiety Neuro/Emot Resolve 2018-2018-12-05 Ayesha roman ion d 11-19 09:00:00 Edward 08:58: [id number] 00 Medication oral med Meds Resolve 2018-12-31 Danni assistance d 12-05 08:35:00 Vallely required 09:00: 00 Cardio hypertensio Cardiovasc Resolve 2018-2019-02-11 Ayesha mane 01-15 11:00:00 Edward 07:30: [id number] 00 Medication oral med Meds Resolve 2019-02-11 Ayesha assistance d 01-15 11:00:00 Edward required 07:30: [id number] 00 Medication injectable Meds Unknown Ayesha med 01-15 Edward assistance 07:30: [id number] required 00 Elimination urinary Eliminatio Resolve 2019-02-24 Glenna incontinenc n d 8-20 14:30:00 Mitchell e 07:35: [employer] 00 [id number] Elimination urinary Eliminatio Resolve 2018-072019-06-10 Glenna incontinenc n d 0-22 09:30:00 Mitchell e 07:32: [employer] 00 [id number] Sensory impaired Sensory Resolve 2018-072019-06-10 Ayesha hearing d 1-14 09:30:00 Edward 10:00: [id number] 00 Medication oral med Meds Resolve 2018-072019-05-15 Ayesha assistance d 14 10:00:00 Edward required 10:00: [id number] 00 Safety safety Safety Resolve 2019-07-15 Ayesha hazards d 07-15 08:32:00 Edward present 08:32: [id number] 00 Allergies, Adverse Reactions, Alerts Allergy Allergy [...] 2016- No Breiman .2% Unknown 10-28 Henrry MATHISA Zetia 10 mg Zetia 10 mg 2016- [...]
--- NOTE | 2019-09-01 16:43 | ED ---
Complex/Multi-Sys Presentation - HPI Summary HPI Summary: Patient is a 64 y/o F presenting to the ED for a chief complaint of pain in the occipital and temporal region. 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 On the night of 08/31/19, patient reports having pain in the occipital and temporal region that she describes as an "electric shock" when she moved her head while taking a shower. The pain lasted for 1 minute before resolving. Currently, patient also has the pain with movement, but notes the pain is resolved when not moving her head. She denies taking any OTC medications for the pain. Patient also complains of shortness of breath that began on 08/31/19. She denies bilateral UE pain, abdominal pain, blood in the stool, or rash. Last normal bowel movement was on 08/31/19. Patient received an injection in her back for back pain at a pain clinic on 09/01/19. Typically, she receives these injections every 2 months. At that time, patient alerted Dr. Bryce Barnes of her symptoms. Dr. Henrry Arriola is her PCP. Patient called Dr. Henrry Arriola' s office who recommended the patient be seen at [facility]. PMHx is significant for cerebral palsy. Patient takes HTN medications and hydrocodone daily for back pain. Patient denies tobacco or alcohol use. Patient lives alone. Patients medication reviewed this visit. - History Of Current Complaint Chief Complaint: EDHeadInjury Time Seen by Provider: 09/01/19 16:24 Hx Obtained From: Patient Onset/Duration: Sudden Onset, Resolved Timing: Minutes - 1 minute Severity Currently: None Severity Initially: Moderate Associated Signs And Symptoms: Positive: SOB. Negative: Abdominal Pain - Allergies/Home Medications Allergies/Adverse Reactions: Allergies Allergy/AdvReac Type Severity Reaction Status Date / Time No Known Allergies Allergy Verified 09/01/19 11:17 Home Medications: Home Medications Albuterol HFA INHALER* [Proair HFA Inhaler*] 2 puff INH Q4H PRN 08/07/12 [ History Confirmed 09/01/19] Ezetimibe TAB* [Zetia TAB*] 10 mg PO BEDTIME 08/07/12 [History Confirmed ] LORazepam TAB(*) [Ativan TAB(*)] 0.5 mg PO TID PRN 08/07/12 [History Confirmed 09/01/19] traZODone TAB* [Desyrel*] 50 mg PO DAILY 08/07/12 [History Confirmed 09/01/19] HYDROcodone/ACETAMIN 5-325 MG* [[place] 5-325 TAB*] 1 tab PO BEDTIME PRN 09/01/16 [History Confirmed 09/01/19] Nabumetone TAB* [Relafen TAB*] 500 mg PO BID 09/01/16 [History Confirmed ] Lisinopril TAB* [Prinivil TAB*] 10 mg PO DAILY 10/21/18 [History Confirmed 08/31] Sertraline* [Zoloft*] 50 mg PO DAILY 09/01/19 [History Confirmed 09/01/19] PMH/Surg Hx/FS Hx/Imm Hx Previously Healthy: Yes Endocrine/Hematology History: Reports: Hx Thyroid Disease Denies: Hx Diabetes Cardiovascular History: Reports: Hx Hypertension Denies: Hx Pacemaker/ICD Respiratory History: Reports: Other Respiratory Problems/Disorders - uses inhaler per health aid Musculoskeletal History: Reports: Hx Back Problems, Other Musculoskeletal History - cerebral palsy Sensory History: Reports: Hx Contacts or Glasses, Hx Deafness - mostly, Hx Hearing Aid - LEFT EAR Denies: Hx Legally Blind Opthamlomology History: Reports: Hx Contacts or Glasses Denies: Hx Legally Blind EENT History: Reports: Hx Deafness, Hx Hearing Aid - Left Neurological History: Reports: Hx Developmental Delay, Other Neuro Impairments/ Disorders - cerebral palsy, PAIN CLINIC PT Psychiatric History: Denies: Hx Panic Disorder - Surgical History Surgical History: None Surgery Procedure, Year, and Place: None Infectious Disease History: No Infectious Disease History: Denies: Traveled Outside the [place] in Last 30 Days - Family History Known Family History: Negative: Diabetes - Social History Occupation: Disabled Lives: Alone Alcohol Use: None Hx Substance Use: No Substance Use Type: Reports: None Substance Use Comment - Amount & Last Used: PAIN MEDICATION Hx Tobacco Use: No Smoking Status (MU): Never Smoked Tobacco Review of Systems Positive: Shortness Of Breath Negative: Abdominal Pain, Other - Negative blood in stool Positive: Myalgia - Positive back at baseline; negative bilateral UE Negative: Rash Neurological/Mental Status: Other - Positive pain in the occipital and temporal region All Other Systems Reviewed And Are Negative: Yes Physical Exam Triage Information Reviewed: Yes Vital Signs On Initial Exam: Initial Vitals Temp Pulse Resp BP Pulse Ox 98.0 F 78 16 183/97 95 09/01/19 11:33 09/01/19 11:33 09/01/19 11:33 09/01/19 11:33 09/01/19 11:33 Vital Signs Reviewed: Yes Procedures - Sedation Patient Received Moderate/Deep Sedation with Procedure: No Diagnostics - Vital Signs Vital Signs Temp Pulse Resp BP Pulse Ox 09/01/19 15:44 74 16 181/77 95 09/01/19 13:40 97.5 F 83 16 172/80 96 09/01/19 11:33 98.0 F 78 16 183/97 95 - Laboratory Lab Statement: Any lab studies that have been ordered have been reviewed, and results considered in the medical decision making process. - Radiology Chest X-ray Radiology Interpretation Completed By: ED Physician Summary of Radiographic Findings: Chest X-ray IMPRESSION: no acute findings. Reviewed and interpreted by Dr. Coyne, pending official radiology report. Cervical Spine X-ray Radiology Interpretation Completed By: Radiologist Summary of Radiographic Findings: Cervical Spine X-ray IMPRESSION: Arthritis obscured by foreign body. Reviewed and interpreted by Dr. Coyne, pending official radiology report. - CT Cervical Spine CT CT Interpretation Completed By: Radiologist Summary of CT Findings: Cervical Spine CT IMPRESSION: Moderate focal degenerative disc disease at C5-C6 mainly and bilateral facet joint arthropathy with neural foraminal narrowing in the upper C-spine. Reviewed by Dr. Coyne. Re-Evaluation - Re-Evaluation First Eval Re-Evaluation Time: 18:16 Change: Unchanged Comment: At 18:16, patient was told she will need a CT. Discharge ED - Sign-Out/Discharge Documenting (check all that apply): Patient Departure - Discharge Signing out patient TO: Janeth Lee - Discharge Plan Condition: Stable Disposition: HOME Patient Education Materials: Cervical Radiculopathy (ED), Arthritis (ED) Referrals: Henrry Arriola MD [Primary Care Provider] - Additional Instructions: As discussed, your CT scan notes arthritis and narrowing by some of the nerves in your neck. The doctor that evaluated you thinks the pain you experience occurs when you turn your head certain direction and irritate a nerve. It is recommended you schedule a follow-up appointment with your primary doctor. Your doctor may order an out patient MRI study to look at these nerves. Your doctor can arrange follow-up with a civil engineering specialist Okay to take your medications as previously prescribed for pain - Attestation Statements Document Initiated by Scribe: Yes Documenting Scribe: Emeli Marks Provider For Whom Scribe is Documenting (Include Credential): Ceci Coyne MD Scribe Attestation: IEmeli, scribed for Ceci Coyne MD on 09/01/19 at 1934. Status of Scribe Document: Ready
[2019-09-01 20:19] VITALS: BP 200/95
== END 2019-09-01 20:18 | disposition home or self-care (01) ==
LOC: ED 11:30
DX: M47.9 Spondylosis, unspecified (principal); M19.91 Primary osteoarthritis, unspecified site; M50.322 Other cervical disc degeneration at C5-C6 level; R06.02 Shortness of breath; E03.9 Hypothyroidism, unspecified; I10 Essential (primary) hypertension; Z79.899 Other long term (current) drug therapy
CPT/HCPCS: 71046; 72040; 72125; 99282

== ENCOUNTER 2020-06-29 20:16 | Inpatient (IN) ==
[2020-06-29 22:05] LABS: ABS Monocytes 0.6 10^3/ul (0-0.8); ABS Neutrophils 10.8 10^3/ul (1.5-7.7); Eosinophil % 0.2 %; Hematocrit 38 % (35-47); Hemoglobin 13.1 g/dL (12.0-16.0); Lymphocyte % 7.9 %; Mean Corpuscular HGB Conc 34 g/dL (31-36); Mean Corpuscular Hemoglobin 30 pg (27-31); Mean Corpuscular Volume 86 fL (80-97); Mean Platelet Volume 6.1 fL (7.4-10.4); Platelet Count 271 10^3/uL (150-450); Red Blood Count 4.44 10^6 /uL (3.70-4.87); Red Cell Distribution Width 13 % (10-15); White Blood Count 12.5 10^3/uL (3.5-10.8)
[2020-06-29 22:13] LABS: Activated Partial Thrombo Time 25.9 seconds (26.0-38.0); INR 0.98 (0.82-1.09)
[2020-06-29 22:25] LABS: ALT 13 U/L (7-52); AST 18 U/L (13-39); Albumin 4.4 g/dL (3.2-5.2); Albumin/Globulin Ratio 1.3 (1-3); Alkaline Phosphatase 86 U/L (34-104); Anion Gap 8 mmol/L (2-11); BUN/Creatinine Ratio 18.3 (8-20); Blood Urea Nitrogen 15 mg/dL (6-24); CO2 Carbon Dioxide 26 mmol/L (22-32); Calcium 9.6 mg/dL (8.6-10.3); Chloride 102 mmol/L (101-111); EGFR African American 84.4 (>60); EGFR Non-African American 69.7 (>60); Globulin 3.3 g/dL (2-4); Glucose 116 mg/dL (70-100); Potassium 3.7 mmol/L (3.5-5.0); Sodium 136 mmol/L (135-145); Total Protein 7.7 g/dL (6.4-8.9)
[2020-06-29 22:30] LABS: Troponin I 0.04 ng/mL (<0.03)
[2020-06-29] MEDS ORDERED: Morphine 2 MG/ML SYRINGE IV ONE (22:43)
[2020-06-29] MEDS ORDERED: Ondansetron 4 mg VIAL 2 MG/ML 2 ml VIAL IV ONE (22:44)
[2020-06-30] MEDS: Morphine 2 MG/ML SYRINGE IV PRN ×3 (00:34→22:09)
[2020-06-30] MEDS ORDERED: Albuterol HFA INHALER 8 gm MDI INH PRN (02:23)
[2020-06-30] MEDS: NS 0.9% 1000 ml BAG 1,000 ML IV SCH ×2 (04:17→20:04)
[2020-06-30 04:33] LABS: ABS Basophils 0.1 10^3/ul (0-0.2); ABS Lymphocytes 0.8 10^3/ul (1.0-4.8); ABS Monocytes 0.8 10^3/ul (0-0.8); ABS Neutrophils 11.1 10^3/ul (1.5-7.7); Eosinophil % 0.1 %; Hematocrit 37 % (35-47); Hemoglobin 12.4 g/dL (12.0-16.0); Lymphocyte % 6.6 %; Mean Corpuscular HGB Conc 34 g/dL (31-36); Mean Corpuscular Hemoglobin 29 pg (27-31); Mean Corpuscular Volume 86 fL (80-97); Mean Platelet Volume 6.1 fL (7.4-10.4); Platelet Count 232 10^3/uL (150-450); Red Blood Count 4.29 10^6 /uL (3.70-4.87); Red Cell Distribution Width 13 % (10-15); White Blood Count 12.8 10^3/uL (3.5-10.8)
[2020-06-30 04:41] LABS: INR 1.04 (0.82-1.09)
[2020-06-30 04:50] LABS: BUN/Creatinine Ratio 20.5 (8-20); Calcium 9.2 mg/dL (8.6-10.3); EGFR African American 89.4 (>60); EGFR Non-African American 73.9 (>60); Potassium 4.2 mmol/L (3.5-5.0)
[2020-06-30 05:05] LABS: Troponin I 0.13 ng/mL (<0.03)
[2020-06-30] MEDS ORDERED: Heparin 5000 UNITS/ML 1 mL VIAL SUBCUT SCH (06:00)
[2020-06-30 09:03] LABS: Troponin I 0.15 ng/mL (<0.03)
[2020-06-30 12:29] LABS: Troponin I 0.14 ng/mL (<0.03)
[2020-06-30 14:11] LABS: Urine Appearance Clear; Urine Bilirubin Negative (Negative); Urine Blood 1+ (Negative); Urine Color Yellow; Urine Glucose Negative (Negative); Urine Ketones Negative (Negative); Urine Nitrite Negative (Negative); Urine Protein Negative (Negative); Urine Specific Gravity 1.021 (1.010-1.030); Urine Urobilinogen Negative (Negative)
[2020-06-30 14:13] LABS: Urine Bacteria Absent (Absent); Urine Red Blood Cell 3+(>10/hpf) (Absent); Urine White Blood Cell Absent (Absent)
[2020-06-30] MEDS: HYDROcodone/ACETAMIN 5/325 mg TAB PO PRN ×2 (15:40→20:35)
[2020-06-30] MEDS: hydrALAZINE 20 mg/ml 1 ML Vial IV IV SLOW PU PRN (20:38)
[2020-07-01] MEDS: HYDROcodone/ACETAMIN 5/325 mg TAB PO PRN ×3 (00:41→21:37)
[2020-07-01] MEDS ORDERED: HYDROcodone/ACETAMIN 5/325 mg TAB PO ONE (00:46)
[2020-07-01] MEDS: Morphine 2 MG/ML SYRINGE IV PRN ×2 (02:09→06:28)
[2020-07-01 04:58] LABS: ABS Basophils 0.1 10^3/ul (0-0.2); ABS Lymphocytes 0.9 10^3/ul (1.0-4.8); ABS Monocytes 0.7 10^3/ul (0-0.8); ABS Neutrophils 8.7 10^3/ul (1.5-7.7); Eosinophil % 0.4 %; Hematocrit 36 % (35-47); Hemoglobin 12.1 g/dL (12.0-16.0); Lymphocyte % 8.4 %; Mean Corpuscular HGB Conc 34 g/dL (31-36); Mean Corpuscular Hemoglobin 29 pg (27-31); Mean Corpuscular Volume 87 fL (80-97); Mean Platelet Volume 6.1 fL (7.4-10.4); Platelet Count 189 10^3/uL (150-450); Red Blood Count 4.14 10^6 /uL (3.70-4.87); Red Cell Distribution Width 13 % (10-15); White Blood Count 10.4 10^3/uL (3.5-10.8)
[2020-07-01 05:02] LABS: INR 1.23 (0.82-1.09)
[2020-07-01 05:19] LABS: Anion Gap 5 mmol/L (2-11); BUN/Creatinine Ratio 18.8 (8-20); Blood Urea Nitrogen 12 mg/dL (6-24); CO2 Carbon Dioxide 24 mmol/L (22-32); Calcium 8.6 mg/dL (8.6-10.3); Chloride 106 mmol/L (101-111); EGFR African American 112.3 (>60); EGFR Non-African American 92.8 (>60); Glucose 125 mg/dL (70-100); Sodium 135 mmol/L (135-145)
[2020-07-01 05:21] LABS: Troponin I 0.13 ng/mL (<0.03)
[2020-07-01] MEDS ORDERED: Polyethylene Glycol 3350 17 GM PACKET PO PRN (09:34)
[2020-07-01] MEDS ORDERED: diPHENhydraMINE 25 mg TAB PO PRN (09:40)
[2020-07-01] MEDS ORDERED: diPHENhydraMINE IV 50 MG/ML 1 ml VIAL (BENADRYL) IV PRN (09:40)
[2020-07-01] MEDS ORDERED: Famotidine IV 10 MG/ML 2 ml VIAL (20 mg) IV SLOW PU ONE (09:46)
[2020-07-01] MEDS ORDERED: diPHENhydraMINE IV 50 MG/ML 1 ml VIAL (BENADRYL) IV ONE (09:47)
[2020-07-01] MEDS: Ondansetron 4 mg VIAL 2 MG/ML 2 ml VIAL IV PRN (11:38)
[2020-07-01] MEDS: NS 0.9% 1000 ml BAG 1,000 ML IV SCH ×2 (11:48→20:12)
[2020-07-01] MEDS ORDERED: Bupivacaine 0.5% 50 ML MDV VIAL ONE (13:35)
[2020-07-01] MEDS ORDERED: ceFAZolin 2 GM PREMIX 2 GM/50 ML BAG ONE (13:53)
[2020-07-01] MEDS ORDERED: Propofol 10 MG/ML 20 ML BTL ONE ×2 (13:56→15:29)
[2020-07-01] MEDS ORDERED: Lidocaine 2% PF 5 ML VIAL ONE (13:56)
[2020-07-01] MEDS ORDERED: fentaNYL 250 mcg/5 ml 50 MCG/ML 5 ml VIAL (250 MCG) ONE (13:58)
[2020-07-01] MEDS ORDERED: Ketamine HCL 50 mg/ml 10 ml VIAL (500 MG) ONE (14:09)
[2020-07-01] MEDS ORDERED: Naloxone 0.4 mg VIAL 0.4 mg/ml 1 ml VIAL IV PRN (14:59)
[2020-07-01] MEDS ORDERED: Ondansetron 4 mg VIAL 2 MG/ML 2 ml VIAL IV PRN (14:59)
[2020-07-01] MEDS ORDERED: oxyCODONE/Acetamin 5/325 mg TAB PO PRN (14:59)
[2020-07-01] MEDS ORDERED: Phenylephrine 40 mcg/mL 10mL (400mcg) SYRINGE ONE (15:33)
[2020-07-01] MEDS ORDERED: Ondansetron 4 mg VIAL 2 MG/ML 2 ml VIAL ONE (16:11)
[2020-07-01] MEDS ORDERED: fentaNYL 100 mcg/2 ml 50 MCG/ML VIAL ONE (16:48)
[2020-07-01] MEDS: fentaNYL 100 mcg/2 ml 50 MCG/ML VIAL IV PRN ×3 (16:50→17:22)
[2020-07-01 17:02] LABS: ABS Eosinophils 0.1 10^3/ul (0-0.6); ABS Monocytes 0.9 10^3/ul (0-0.8); ABS Neutrophils 8.2 10^3/ul (1.5-7.7); Eosinophil % 0.9 %; Hematocrit 33 % (35-47); Hemoglobin 11.2 g/dL (12.0-16.0); Lymphocyte % 9.6 %; Mean Corpuscular HGB Conc 34 g/dL (31-36); Mean Corpuscular Hemoglobin 30 pg (27-31); Mean Corpuscular Volume 87 fL (80-97); Mean Platelet Volume 6.2 fL (7.4-10.4); Platelet Count 165 10^3/uL (150-450); Red Blood Count 3.74 10^6 /uL (3.70-4.87); Red Cell Distribution Width 13 % (10-15); White Blood Count 10.2 10^3/uL (3.5-10.8)
[2020-07-01] MEDS ORDERED: Midazolam 5 mg/5 ml VIAL 1 mg/ml 5 ml VIAL (5 mg) ONE (17:03)
[2020-07-01 19:57] LABS: ABS Eosinophils 0.1 10^3/ul (0-0.6); ABS Lymphocytes 0.7 10^3/ul (1.0-4.8); ABS Monocytes 0.8 10^3/ul (0-0.8); ABS Neutrophils 9.7 10^3/ul (1.5-7.7); Eosinophil % 0.5 %; Hematocrit 34 % (35-47); Hemoglobin 11.4 g/dL (12.0-16.0); Lymphocyte % 6.2 %; Mean Corpuscular HGB Conc 34 g/dL (31-36); Mean Corpuscular Hemoglobin 30 pg (27-31); Mean Corpuscular Volume 87 fL (80-97); Mean Platelet Volume 6.1 fL (7.4-10.4); Platelet Count 177 10^3/uL (150-450); Red Blood Count 3.88 10^6 /uL (3.70-4.87); Red Cell Distribution Width 13 % (10-15); White Blood Count 11.3 10^3/uL (3.5-10.8)
[2020-07-01] MEDS: HYDROmorphone 0.5 MG/0.5 ML SYRINGE IV PRN (20:03)
[2020-07-01] MEDS: ceFAZolin 1 GM Q8H (ADVAN) IVPB SCH (22:46)
[2020-07-02] MEDS: HYDROcodone/ACETAMIN 5/325 mg TAB PO PRN (02:04)
[2020-07-02] MEDS: HYDROmorphone 0.5 MG/0.5 ML SYRINGE IV PRN (04:48)
[2020-07-02 05:24] LABS: Hematocrit 30 % (35-47); Hemoglobin 10.8 g/dL (12.0-16.0); Mean Platelet Volume 6.3 fL (7.4-10.4); Platelet Count 168 10^3/uL (150-450)
[2020-07-02 05:47] LABS: BUN/Creatinine Ratio 18.2 (8-20); Calcium 8.3 mg/dL (8.6-10.3); EGFR African American 108.4 (>60); EGFR Non-African American 89.6 (>60); Potassium 3.9 mmol/L (3.5-5.0)
[2020-07-02] MEDS: ceFAZolin 1 GM Q8H (ADVAN) IVPB SCH ×3 (06:02→22:15)
[2020-07-02] MEDS: Ondansetron 4 mg VIAL 2 MG/ML 2 ml VIAL IV PRN (10:35)
[2020-07-02] MEDS: Enoxaparin 40 MG/0.4 ML SYR SUBCUT SCH (12:25)
[2020-07-03] MEDS ORDERED: NS 0.9% 1000 ml BAG 1,000 ML IV SCH (01:00)
[2020-07-03] MEDS: NS 0.9% 1000 ml BAG 1,000 ML IV SCH ×2 (01:12→12:46)
[2020-07-03 05:10] LABS: ABS Eosinophils 0.2 10^3/ul (0-0.6); ABS Lymphocytes 0.9 10^3/ul (1.0-4.8); ABS Monocytes 0.9 10^3/ul (0-0.8); ABS Neutrophils 7.6 10^3/ul (1.5-7.7); Eosinophil % 2.4 %; Hematocrit 29 % (35-47); Hemoglobin 9.9 g/dL (12.0-16.0); Lymphocyte % 9.1 %; Mean Corpuscular HGB Conc 34 g/dL (31-36); Mean Corpuscular Hemoglobin 30 pg (27-31); Mean Corpuscular Volume 87 fL (80-97); Mean Platelet Volume 6.8 fL (7.4-10.4); Platelet Count 188 10^3/uL (150-450); Red Blood Count 3.34 10^6 /uL (3.70-4.87); Red Cell Distribution Width 13 % (10-15); White Blood Count 9.6 10^3/uL (3.5-10.8)
[2020-07-03 05:30] LABS: BUN/Creatinine Ratio 20.3 (8-20); Calcium 8.3 mg/dL (8.6-10.3); EGFR African American 123.4 (>60); Magnesium 1.9 mg/dL (1.9-2.7); Potassium 3.4 mmol/L (3.5-5.0)
[2020-07-03] MEDS: HYDROcodone/ACETAMIN 5/325 mg TAB PO PRN ×2 (06:57→16:04)
[2020-07-03] MEDS: ceFAZolin 1 GM Q8H (ADVAN) IVPB SCH ×3 (06:57→22:16)
[2020-07-03] MEDS: Enoxaparin 40 MG/0.4 ML SYR SUBCUT SCH (09:11)
[2020-07-03] MEDS ORDERED: Potassium Chlor 20 meq TAB.ER PO ONE (17:48)
[2020-07-04 05:42] LABS: ABS Eosinophils 0.2 10^3/ul (0-0.6); ABS Lymphocytes 1.1 10^3/ul (1.0-4.8); ABS Monocytes 0.7 10^3/ul (0-0.8); ABS Neutrophils 6.2 10^3/ul (1.5-7.7); Eosinophil % 2.2 %; Hematocrit 26 % (35-47); Hemoglobin 8.9 g/dL (12.0-16.0); Lymphocyte % 12.9 %; Mean Corpuscular HGB Conc 34 g/dL (31-36); Mean Corpuscular Hemoglobin 30 pg (27-31); Mean Corpuscular Volume 87 fL (80-97); Mean Platelet Volume 6.8 fL (7.4-10.4); Platelet Count 222 10^3/uL (150-450); Red Blood Count 2.99 10^6 /uL (3.70-4.87); Red Cell Distribution Width 13 % (10-15); White Blood Count 8.2 10^3/uL (3.5-10.8)
[2020-07-04 06:07] LABS: BUN/Creatinine Ratio 22.6 (8-20); Calcium 8.1 mg/dL (8.6-10.3); EGFR African American 139.7 (>60); EGFR Non-African American 115.4 (>60); Magnesium 2.1 mg/dL (1.9-2.7); Potassium 3.7 mmol/L (3.5-5.0)
[2020-07-04] MEDS: ceFAZolin 1 GM Q8H (ADVAN) IVPB SCH ×3 (06:31→22:07)
[2020-07-04] MEDS ORDERED: Lorazepam PYXIS KEY PRN (08:17)
[2020-07-04] MEDS ORDERED: LORazepam 2 mg VIAL 1 ml IV PUSH ONE (08:18)
[2020-07-04 10:22] LABS: Urine Appearance Clear; Urine Bilirubin Negative (Negative); Urine Blood 2+ (Negative); Urine Color Yellow; Urine Glucose Negative (Negative); Urine Ketones Trace (Negative); Urine Nitrite Negative (Negative); Urine Protein 1+(30 mg/dL) (Negative); Urine Specific Gravity 1.021 (1.010-1.030); Urine Urobilinogen Negative (Negative)
[2020-07-04 10:37] LABS: Urine Bacteria Absent (Absent); Urine Red Blood Cell 2+(6-10/hpf) (Absent); Urine White Blood Cell Trace(0-5/hpf) (Absent)
[2020-07-04] MEDS: Enoxaparin 40 MG/0.4 ML SYR SUBCUT SCH (10:49)
[2020-07-04] MEDS ORDERED: Iohexol 350 (CONTRAST) 500 ML MDV IV ONE (12:14)
[2020-07-04] MEDS: HYDROcodone/ACETAMIN 5/325 mg TAB PO PRN (16:12)
[2020-07-04] MEDS: Senna TAB 8.6 mg TAB PO PRN (22:13)
[2020-07-05] MEDS: ceFAZolin 1 GM Q8H (ADVAN) IVPB SCH ×2 (06:40→16:30)
[2020-07-05 07:16] LABS: ABS Eosinophils 0.3 10^3/ul (0-0.6); ABS Lymphocytes 0.8 10^3/ul (1.0-4.8); ABS Monocytes 0.5 10^3/ul (0-0.8); ABS Neutrophils 3.8 10^3/ul (1.5-7.7); Eosinophil % 5.4 %; Hematocrit 27 % (35-47); Lymphocyte % 15.4 %; Mean Corpuscular HGB Conc 33 g/dL (31-36); Mean Corpuscular Hemoglobin 29 pg (27-31); Mean Corpuscular Volume 88 fL (80-97); Mean Platelet Volume 6.7 fL (7.4-10.4); Platelet Count 247 10^3/uL (150-450); Red Cell Distribution Width 13 % (10-15); White Blood Count 5.5 10^3/uL (3.5-10.8)
[2020-07-05] MEDS: Enoxaparin 40 MG/0.4 ML SYR SUBCUT SCH (09:14)
[2020-07-05] MEDS ORDERED: Magnesium Hydroxide LIQ 30 ML UDC PO PRN (16:20)
[2020-07-05] MEDS: hydrALAZINE 20 mg/ml 1 ML Vial IV IV SLOW PU PRN (22:03)
[2020-07-05] MEDS: Senna TAB 8.6 mg TAB PO PRN (23:44)
[2020-07-06] MEDS ORDERED: ADVAN IVPB ONE (01:00)
[2020-07-06] MEDS ORDERED: CEFAZOLIN IVPB ONE (01:00)
[2020-07-06] MEDS ORDERED: NS 0.9% IVPB ONE (01:00)
[2020-07-06] MEDS: Ondansetron 4 mg VIAL 2 MG/ML 2 ml VIAL IV PRN (03:45)
[2020-07-06] MEDS: ceFAZolin 1 GM Q8H (ADVAN) IVPB SCH ×2 (06:28)
[2020-07-06 06:29] LABS: Hematocrit 27 % (35-47); Hemoglobin 9.3 g/dL (12.0-16.0); Mean Corpuscular HGB Conc 34 g/dL (31-36); Mean Corpuscular Hemoglobin 29 pg (27-31); Mean Corpuscular Volume 87 fL (80-97); Mean Platelet Volume 6.5 fL (7.4-10.4); Platelet Count 299 10^3/uL (150-450); Red Blood Count 3.16 10^6 /uL (3.70-4.87); Red Cell Distribution Width 13 % (10-15); White Blood Count 5.8 10^3/uL (3.5-10.8)
[2020-07-06 13:05] VITALS: BP 165/84
[2020-07-06] MEDS: HYDROcodone/ACETAMIN 5/325 mg TAB PO PRN (14:08)
== END 2020-07-06 09:21 | DRG 521 ==
LOC: ED 20:16 → SSU 06-30 → PMRU 07-04 15:52
PROVIDERS: ADMIT Student in an Organized Health Care Education/Training Program; ATTEND Internal Medicine

== ENCOUNTER 2020-07-06 09:22 | Inpatient (IN) ==
[2020-07-07 06:11] LABS: ABS Basophils 0.1 10^3/ul (0-0.2); ABS Eosinophils 0.2 10^3/ul (0-0.6); ABS Monocytes 0.6 10^3/ul (0-0.8); ABS Neutrophils 2.8 10^3/ul (1.5-7.7); Eosinophil % 4.6 %; Hematocrit 27 % (35-47); Hemoglobin 9.1 g/dL (12.0-16.0); Lymphocyte % 20.9 %; Mean Corpuscular HGB Conc 34 g/dL (31-36); Mean Corpuscular Hemoglobin 29 pg (27-31); Mean Corpuscular Volume 87 fL (80-97); Mean Platelet Volume 6.1 fL (7.4-10.4); Nucleated Red Blood Cells % 0.1; Platelet Count 338 10^3/uL (150-450); Red Blood Count 3.12 10^6 /uL (3.70-4.87); Red Cell Distribution Width 13 % (10-15); White Blood Count 4.6 10^3/uL (3.5-10.8)
[2020-07-07 06:41] LABS: Albumin 2.9 g/dL (3.2-5.2); Albumin/Globulin Ratio 1.1 (1-3); BUN/Creatinine Ratio 20.5 (8-20); Calcium 8.4 mg/dL (8.6-10.3); EGFR African American 173.1 (>60); EGFR Non-African American 143.1 (>60); Globulin 2.7 g/dL (2-4); Potassium 3.7 mmol/L (3.5-5.0); Total Bilirubin 0.5 mg/dL (0.2-1.0); Total Protein 5.6 g/dL (6.4-8.9)
[2020-07-07] MEDS: HYDROcodone/ACETAMIN 5/325 mg TAB PO PRN ×2 (07:19→13:32)
[2020-07-08] MEDS: HYDROcodone/ACETAMIN 5/325 mg TAB PO PRN ×2 (08:10→20:18)
[2020-07-08] MEDS: Senna TAB 8.6 mg TAB PO PRN (20:16)
[2020-07-08] MEDS: Magnesium Hydroxide LIQ 30 ML UDC PO PRN (20:24)
[2020-07-09] MEDS: HYDROcodone/ACETAMIN 5/325 mg TAB PO PRN ×2 (03:43→07:40)
[2020-07-09] MEDS ORDERED: Al Hydrox/Mg Hydrox/Simet LIQ 30 ML UDC PO PRN (09:36)
[2020-07-09 10:01] LABS: ABS Basophils 0.1 10^3/ul (0-0.2); ABS Eosinophils 0.2 10^3/ul (0-0.6); ABS Lymphocytes 1.1 10^3/ul (1.0-4.8); ABS Monocytes 0.8 10^3/ul (0-0.8); Eosinophil % 3.6 %; Hematocrit 27 % (35-47); Hemoglobin 9.2 g/dL (12.0-16.0); Mean Corpuscular HGB Conc 34 g/dL (31-36); Mean Corpuscular Hemoglobin 29 pg (27-31); Mean Corpuscular Volume 87 fL (80-97); Mean Platelet Volume 6.3 fL (7.4-10.4); Nucleated Red Blood Cells % 0.1; Platelet Count 468 10^3/uL (150-450); Red Blood Count 3.14 10^6 /uL (3.70-4.87); Red Cell Distribution Width 13 % (10-15); White Blood Count 6.1 10^3/uL (3.5-10.8)
[2020-07-09 10:19] LABS: ALT 23 U/L (7-52); AST 34 U/L (13-39); Albumin 3.1 g/dL (3.2-5.2); Alkaline Phosphatase 72 U/L (34-104); Anion Gap 6 mmol/L (2-11); BUN/Creatinine Ratio 19.2 (8-20); Blood Urea Nitrogen 10 mg/dL (6-24); CO2 Carbon Dioxide 28 mmol/L (22-32); Calcium 8.4 mg/dL (8.6-10.3); Chloride 102 mmol/L (101-111); EGFR African American 142.8 (>60); Glucose 122 mg/dL (70-100); Potassium 3.6 mmol/L (3.5-5.0); Sodium 136 mmol/L (135-145); Total Protein 6.1 g/dL (6.4-8.9)
[2020-07-09 10:21] LABS: Troponin I 0.04 ng/mL (<0.03)
[2020-07-11] MEDS ORDERED: Benzocaine/Menthol LOZ PO PRN (11:40)
[2020-07-14 05:38] LABS: ABS Eosinophils 0.3 10^3/ul (0-0.6); ABS Lymphocytes 1.3 10^3/ul (1.0-4.8); ABS Monocytes 0.7 10^3/ul (0-0.8); ABS Neutrophils 2.3 10^3/ul (1.5-7.7); Eosinophil % 6.4 %; Hematocrit 31 % (35-47); Hemoglobin 10.2 g/dL (12.0-16.0); Lymphocyte % 27.7 %; Mean Corpuscular HGB Conc 34 g/dL (31-36); Mean Corpuscular Hemoglobin 29 pg (27-31); Mean Corpuscular Volume 87 fL (80-97); Nucleated Red Blood Cells % 0.1; Platelet Count 636 10^3/uL (150-450); Red Blood Count 3.51 10^6 /uL (3.70-4.87); Red Cell Distribution Width 14 % (10-15); White Blood Count 4.6 10^3/uL (3.5-10.8)
[2020-07-14 05:56] LABS: Albumin 3.5 g/dL (3.2-5.2); Albumin/Globulin Ratio 1.2 (1-3); BUN/Creatinine Ratio 30.2 (8-20); Calcium 9.4 mg/dL (8.6-10.3); EGFR African American 114.4 (>60); EGFR Non-African American 94.5 (>60); Potassium 4.7 mmol/L (3.5-5.0); Total Bilirubin 0.3 mg/dL (0.2-1.0); Total Protein 6.5 g/dL (6.4-8.9)
[2020-07-14] MEDS: Senna TAB 8.6 mg TAB PO PRN (21:08)
[2020-07-15] MEDS ORDERED: ceFAZolin 1 GM ADVAN 1 GM in NS 0.9% 50 ML 50 ML IVPB SCH (09:00)
[2020-07-15] MEDS ORDERED: ceFAZolin 1 GM in Dextrose 1 GM/50 ML BAG IV SCH (09:30)
[2020-07-15] MEDS: ceFAZolin 1 GM in Dextrose 1 GM/50 ML BAG IVPB SCH ×2 (11:05→19:09)
[2020-07-15] MEDS: Magnesium Hydroxide LIQ 30 ML UDC PO PRN (18:36)
[2020-07-16] MEDS: ceFAZolin 1 GM in Dextrose 1 GM/50 ML BAG IVPB SCH (02:55)
[2020-07-16] MEDS: Polyethylene Glycol 3350 17 GM PACKET PO PRN (15:59)
[2020-07-17] MEDS ORDERED: Al Hydrox/Mg Hydrox/Simet LIQ 30 ML UDC PO ONE (15:21)
[2020-07-18] MEDS: Senna TAB 8.6 mg TAB PO PRN (08:22)
[2020-07-18] MEDS: Polyethylene Glycol 3350 17 GM PACKET PO PRN (08:22)
[2020-07-19] MEDS: Polyethylene Glycol 3350 17 GM PACKET PO PRN (15:41)
[2020-07-19] MEDS: Magnesium Hydroxide LIQ 30 ML UDC PO PRN (22:04)
[2020-07-20] MEDS: Polyethylene Glycol 3350 17 GM PACKET PO PRN (15:49)
[2020-07-21 07:28] LABS: ABS Eosinophils 0.1 10^3/ul (0-0.6); ABS Lymphocytes 1.3 10^3/ul (1.0-4.8); ABS Monocytes 0.6 10^3/ul (0-0.8); ABS Neutrophils 1.4 10^3/ul (1.5-7.7); Eosinophil % 1.9 %; Hematocrit 31 % (35-47); Hemoglobin 10.3 g/dL (12.0-16.0); Lymphocyte % 38.2 %; Mean Corpuscular HGB Conc 33 g/dL (31-36); Mean Corpuscular Hemoglobin 29 pg (27-31); Mean Corpuscular Volume 87 fL (80-97); Mean Platelet Volume 5.9 fL (7.4-10.4); Platelet Count 487 10^3/uL (150-450); Red Blood Count 3.57 10^6 /uL (3.70-4.87); Red Cell Distribution Width 14 % (10-15); White Blood Count 3.4 10^3/uL (3.5-10.8)
[2020-07-21 07:45] LABS: Albumin 3.7 g/dL (3.2-5.2); Albumin/Globulin Ratio 1.1 (1-3); Calcium 9.6 mg/dL (8.6-10.3); Globulin 3.5 g/dL (2-4); Potassium 4.8 mmol/L (3.5-5.0); Total Bilirubin 0.4 mg/dL (0.2-1.0); Total Protein 7.2 g/dL (6.4-8.9)
[2020-07-21] MEDS: Polyethylene Glycol 3350 17 GM PACKET PO PRN (15:17)
[2020-07-25] MEDS: Lidocaine PATCH 5% PATCH TRANSDERM SCH (11:48)
[2020-07-25] MEDS: Lidocaine Patch REMOVE PATCH PATCH OFF SCH (21:33)
[2020-07-26] MEDS: Lidocaine PATCH 5% PATCH TRANSDERM SCH (11:07)
[2020-07-26] MEDS: Lidocaine Patch REMOVE PATCH PATCH OFF SCH (20:07)
[2020-07-27] MEDS ORDERED: Lidocaine Patch REMOVE PATCH PATCH OFF SCH (01:00)
[2020-07-27] MEDS: Lidocaine Patch REMOVE PATCH PATCH OFF SCH (10:39)
[2020-07-27] MEDS ORDERED: Lidocaine PATCH 5% PATCH TRANSDERM SCH (21:00)
[2020-07-27] MEDS: Nystatin TOP POWDER 15 GM BTL TOPICAL SCH (21:26)
[2020-07-28 05:22] VITALS: BP 134/70
[2020-07-28 06:41] LABS: ABS Eosinophils 0.1 10^3/ul (0-0.6); ABS Lymphocytes 1.4 10^3/ul (1.0-4.8); ABS Monocytes 0.7 10^3/ul (0-0.8); ABS Neutrophils 1.7 10^3/ul (1.5-7.7); Eosinophil % 1.4 %; Hematocrit 31 % (35-47); Hemoglobin 10.5 g/dL (12.0-16.0); Lymphocyte % 34.7 %; Mean Corpuscular HGB Conc 34 g/dL (31-36); Mean Corpuscular Hemoglobin 29 pg (27-31); Mean Corpuscular Volume 86 fL (80-97); Mean Platelet Volume 6.3 fL (7.4-10.4); Platelet Count 358 10^3/uL (150-450); Red Blood Count 3.61 10^6 /uL (3.70-4.87); Red Cell Distribution Width 14 % (10-15); White Blood Count 3.9 10^3/uL (3.5-10.8)
[2020-07-28 07:02] LABS: Albumin 3.7 g/dL (3.2-5.2); Albumin/Globulin Ratio 1.2 (1-3); BUN/Creatinine Ratio 24.7 (8-20); Calcium 9.8 mg/dL (8.6-10.3); EGFR African American 90.8 (>60); Globulin 3.2 g/dL (2-4); Potassium 3.9 mmol/L (3.5-5.0); Total Bilirubin 0.4 mg/dL (0.2-1.0); Total Protein 6.9 g/dL (6.4-8.9)
[2020-07-28] MEDS: Lidocaine Patch REMOVE PATCH PATCH OFF SCH (11:08)
[2020-07-28] MEDS: Nystatin TOP POWDER 15 GM BTL TOPICAL SCH (11:09)
== END 2020-07-28 12:45 | disposition home health service (06) | DRG 560 ==
LOC: PMRU 09:22
PROVIDERS: ADMIT Physical Medicine & Rehabilitation; ATTEND Physical Medicine & Rehabilitation

== ENCOUNTER 2022-01-31 11:13 | Inpatient (IN) ==
[2022-01-31] MEDS ORDERED: Acetaminophen IV 1 GM/100ML 100 ML IV ONE (12:54)
[2022-01-31] MEDS ORDERED: Propofol 10 MG/ML 20 ML BTL IV PUSH ONE (13:31)
[2022-01-31] MEDS ORDERED: Ondansetron 4 mg VIAL 2 MG/ML 2 ml VIAL IV ONE ×2 (14:25→20:18)
[2022-01-31] MEDS ORDERED: Morphine 2 MG/ML SYRINGE IV PRN (16:51)
[2022-01-31] MEDS ORDERED: Albuterol HFA INHALER 8 gm MDI INH PRN (17:11)
[2022-01-31] MEDS ORDERED: Ondansetron 4 mg VIAL 2 MG/ML 2 ml VIAL IV PRN (20:18)
[2022-01-31] MEDS ORDERED: Droperidol 5 MG/2 ML 2 ML VIAL IV ONE (21:58)
[2022-01-31] MEDS: Enoxaparin 40 MG/0.4 ML SYR SUBCUT SCH (23:09)
[2022-01-31 23:10] LABS: ABS Lymphocytes 0.7 10^3/ul (1.0-4.8); ABS Monocytes 0.5 10^3/ul (0-0.8); ABS Neutrophils 6.2 10^3/ul (1.5-7.7); Eosinophil % 0.2 %; Hematocrit 33 % (35-47); Hemoglobin 10.9 g/dL (12.0-16.0); Mean Corpuscular HGB Conc 33 g/dL (31-36); Mean Corpuscular Hemoglobin 29 pg (27-31); Mean Corpuscular Volume 87 fL (80-97); Mean Platelet Volume 6.2 fL (7.4-10.4); Nucleated Red Blood Cells % 0.1; Platelet Count 226 10^3/uL (150-450); Red Blood Count 3.84 10^6 /uL (3.70-4.87); Red Cell Distribution Width 14 % (10-15); White Blood Count 7.5 10^3/uL (3.5-10.8)
[2022-01-31] MEDS: Acetaminophen IV 1 GM/100ML 100 ML IV SCH (23:23)
[2022-01-31 23:58] LABS: Calcium 8.9 mg/dL (8.6-10.3); eGFR CKD-EPI 78.4 (>60)
[2022-02-01 03:05] LABS: Urine Appearance Clear; Urine Color Yellow; Urine Specific Gravity 1.031 (1.002-1.030); Urine Urobilinogen 0.2 (Negative) (Negative); Urine pH 5.5 (5.0-9.0)
[2022-02-01 03:06] LABS: Urine Bilirubin Negative (Negative); Urine Blood Trace (Intact) (Negative); Urine Glucose Negative (Negative); Urine Ketones Negative (Negative); Urine Nitrite Negative (Negative); Urine Protein Negative (Negative)
[2022-02-01 03:27] LABS: Urine Bacteria Absent (Absent); Urine Red Blood Cell 1+(3-5/hpf) (Absent); Urine Squamous Epithelial Cell Present (Absent); Urine White Blood Cell 2+(11-20/hpf) (Absent)
[2022-02-01] MEDS: Acetaminophen IV 1 GM/100ML 100 ML IV SCH ×3 (05:59→21:34)
[2022-02-01] MEDS: Polyethylene Glycol 3350 17 GM PACKET PO SCH (08:57)
[2022-02-01] MEDS: Enoxaparin 40 MG/0.4 ML SYR SUBCUT SCH (21:37)
[2022-02-02] MEDS: Acetaminophen IV 1 GM/100ML 100 ML IV SCH ×2 (05:46→06:20)
[2022-02-02] MEDS: Polyethylene Glycol 3350 17 GM PACKET PO SCH (11:08)
[2022-02-02] MEDS: Enoxaparin 40 MG/0.4 ML SYR SUBCUT SCH (20:06)
[2022-02-03] MEDS: Polyethylene Glycol 3350 17 GM PACKET PO SCH ×2 (08:13→08:21)
[2022-02-03] MEDS: Enoxaparin 40 MG/0.4 ML SYR SUBCUT SCH (21:14)
[2022-02-04 07:11] LABS: Calcium 9.6 mg/dL (8.6-10.3); Potassium 3.4 mmol/L (3.5-5.0); eGFR CKD-EPI 77.2 (>60)
[2022-02-04] MEDS: Polyethylene Glycol 3350 17 GM PACKET PO SCH (08:27)
[2022-02-04] MEDS: Enoxaparin 40 MG/0.4 ML SYR SUBCUT SCH (19:36)
[2022-02-05] MEDS ORDERED: Potassium Chloride LIQUID 20 MEQ/15 ML LIQUID PO ONE (08:03)
[2022-02-05] MEDS ORDERED: Potassium Chlor 20 meq TAB.ER PO ONE (10:24)
[2022-02-05] MEDS: Polyethylene Glycol 3350 17 GM PACKET PO SCH (11:16)
[2022-02-05] MEDS: Enoxaparin 40 MG/0.4 ML SYR SUBCUT SCH (19:34)
[2022-02-06 05:50] LABS: eGFR CKD-EPI 95.7 (>60)
[2022-02-06] MEDS: Polyethylene Glycol 3350 17 GM PACKET PO SCH ×2 (07:55→08:00)
[2022-02-06 16:49] LABS: Vitamin D Total 25(OH) 41.4 ng/mL (20-50)
[2022-02-06] MEDS: Enoxaparin 40 MG/0.4 ML SYR SUBCUT SCH (21:29)
[2022-02-07] MEDS: Polyethylene Glycol 3350 17 GM PACKET PO SCH (09:39)
[2022-02-07 14:59] VITALS: BP 145/71
== END 2022-02-07 17:40 | disposition home or self-care (01) | DRG 563 ==
LOC: EDHOLD 11:13 → ED 11:13 → SUATTDRO 16:51 → MED 22:35 → SUATTDRO 02-03 12:08
PROVIDERS: ADMIT Hospitalist; ATTEND Internal Medicine